=== PATIENT | female | born 1950 | race Caucasian/White ===

== ENCOUNTER 2017-12-11 17:08 | Emergency (ER) | payer MEDICARE, MEDICAID, SELFPAY ==
[2017-12-11 17:10] VITALS: BP 155/86; PULSE 89; RESP 14; TEMP 36.7; O2SAT 98
--- NOTE | 2017-12-11 17:20 | DI.REPORT_ITS ---
SYMPTOM/DIAGNOSIS: LEFT SIDED CHEST PAIN PA AND LATERAL CHEST: 12/11 The heart is normal in size. The lungs are clear. The mediastinal structures and pleura appear intact. CONCLUSION: Normal chest.
--- NOTE | 2017-12-11 17:23 | ED.GENADUL_ITS ---
Disposition Clinical Impression: Contusion of rib on left side Disposition: HOME Condition: Stable Instructions: Rib Contusion (ED) Additional Instructions: follow up with your primary care provider next week if pain continues if pain significantly worsens or you have shortness of breath return to the emergency department Medical Decision Making - Radiology Data Radiology results: report reviewed, image reviewed - Medical Decision Making pt here with likely rib contusion but will obtain xray to eval for fx/ dislocation of the ribs and ptx. Pain started while leaning up against a chair, no pain with exertion, no sob, normal vascular exam, no tearing back pain, no diaphoresis, doubt entities such as acs, pe or dissection at this time no acute findings on xray on my rad or vrad read, only has pain with palpation in left mid axillary line. Suspect contusion, will d/c home - Differential Diagnosis rib contusion vs fx, ptx History of Present Illness - General Chief complaint: Chest/Rib Stated complaint: HIP/FLANK PAIN Time Seen by Provider: 12/11/17 17:09 Source: patient Mode of arrival: ambulatory Limitations: no limitations - History of Present Illness Initial comments: 67 yo female comes in with left sided chest pain. She states earlier this morning she was leaning over a chair on her left chest in the mid axillary line and had mo and felt a pop in the mid left axillary line. Did not fall, has had discomfort since so came here. Denies chest pressure, pain with exertion. Has pain with palpation to the mid left axillary line and no crepitus or palpable deformities Complaint: left sided chest pain Onset/Timin -: hour(s) Location: chest Radiation: non-radiation Severity scale (1-10): 4 Consistency: constant Improves with: none Worsens with: other (palpation to the chest) Associated Symptoms: denies other symptoms Treatments Prior to Arrival: none - Related Data Albuterol Sulfate [Ventolin Hfa] 2 puff IH .Q4HR PRN 02/06/15 Amitriptyline HCl 25 mg PO .QHS 02/06/15 Amlodipine Besylate 10 mg PO DAILY 02/06/15 Atorvastatin Calcium 40 mg PO .QHS 02/06/15 Bupropion HCl [Bupropion Xl] 150 mg PO BID 02/06/15 Cetirizine HCl 10 mg PO DAILY 02/06/15 Citalopram Hydrobromide [Celexa] 40 mg PO DAILY 02/06/15 Doxycycline Hyclate [Vibramycin] 100 mg PO BID #14 tab 02/06/15 Ferrous Gluconate 324 mg PO DAILY 02/06/15 Fluticasone/Salmeterol [Advair Hfa 115-21 Mcg Inhaler] 2 puff IH BID 02/06/15 Furosemide [Lasix] 20 mg PO DAILY 02/06/15 Gabapentin 600 mg PO .QHS 02/06/15 Hydrochlorothiazide 25 mg PO DAILY 02/06/15 Hydroxychloroquine Sulfate 400 mg PO DAILY 02/06/15 Hyoscyamine Sulfate [Levsin] 0.125 mg PO .Q4HRS PRN 02/06/15 Levothyroxine [Levothroid Injection] 100 mcg PO DAILY 02/06/15 Lisinopril 20 mg PO DAILY 02/06/15 Metformin HCl 500 mg PO BID 02/06/15 Montelukast Sodium [Singulair] 10 mg PO DAILY 02/06/15 Omeprazole 40 mg PO DAILY 02/06/15 Oxycodone HCl 5 mg PO .5X/DAY PRN 02/06/15 Prednisone . DIRECTED 02/06/15 Prednisone 40 mg PO DAILY #10 tablet 02/06/15 SUMAtriptan [Imitrex] 100 mg PO PRN 02/06/15 TraZODone [Desyrel] 100 mg PO .QHS 02/06/15 Triamcinolone 0.1% Cream [Kenalog 0.1% Cream] BID 02/06/15 Allergies Allergy/AdvReac Type Severity Reaction Status Date / Time ampicillin AdvReac Mild stuffy/feve Unverified 12/11/17 17:27 r clindamycin AdvReac Mild stuffy/feve Unverified 12/11/17 17:27 r Penicillins AdvReac Mild stuffy/feve Unverified 12/11/17 17:27 r Sulfa (Sulfonamide AdvReac Mild stuffy/feve Unverified 12/11/17 17:27 Antibiotics) r tramadol AdvReac Mild stuffy/feve Unverified 12/11/17 17:[address] contrast Allergy Unknown pt not Uncoded 12/11/17 17:27 sure of allergy Review of Systems Constitutional: denies: fever Respiratory: denies: shortness of breath Cardiovascular: chest pain Gastrointestinal: denies: abdominal pain, nausea, vomiting Musculoskeletal: denies: back pain Skin: denies: rash Comment: All other systems reviewed and negative Past Medical History - Past Medical History Medical history: COPD, hypertension - Social History Smoking status: current everyday smoker Alcohol use: none Drug use: none General Exam - General Limitations: no limitations General appearance: alert, in no apparent distress - Head Head exam: Present: atraumatic - Eye Eye exam: Present: normal apperance - ENT ENT exam: Present: mucous membranes moist - Neck Neck exam: Present: normal inspection - Respiratory Respiratory exam: Present: normal lung sounds bilaterally, chest wall tenderness. Absent: respiratory distress - Cardiovascular Cardiovascular Exam: Present: regular rate, normal rhythm, normal heart sounds - GI/Abdominal GI/Abdominal exam: Present: soft, tenderness - Extremities Exam Extremities exam: Absent: pedal edema - Neurological Exam Neurological exam: Present: alert, oriented X3 - Psychiatric Psychiatric exam: Present: normal affect - Skin Skin exam: Present: warm Course Vital Signs - 24 hr 15/18 17:10 Temperature 98.1 F Pulse 89 Respiratory 14 Rate Blood Pressure 155/86 Pulse Oximetry 98
--- NOTE | 2017-12-11 17:52 | DI.VRAD_ITS ---
EXAM: XR Chest, 2 Views EXAM DATE/TIME: 12/11/2017 5:21 PM CLINICAL HISTORY: 67 years old, female; Pain; Chest pain; Left-sided chest pain TECHNIQUE: XR of the chest, 2 views. COMPARISON: CR - CHEST 2 VIEWS PA,LAT 2015-02-06 13:15 FINDINGS: Lungs: Very minimal residual linear atelectasis or chronic scarring is noted within the lateral right mid thorax. This has diminished since the prior study. No consolidation. Pleural space: Unremarkable. No pleural effusion. No pneumothorax. Heart/Mediastinum: Unremarkable. No cardiomegaly. Bones/joints: The osseous structures appear diffusely osteopenic and unchanged. There is marginal osteophytic spurring noted throughout the thoracic vertebrae. IMPRESSION: No acute pulmonary disease or acute thoracic findings are detected. Dictated and Authenticated by: Alfred Gee MD. Ordering:DESTINEY ABREU MD
== END 2017-12-11 18:17 | disposition home or self-care (01) ==
PROVIDERS: Emergency Provider Emergency Medicine
DX: S20.212A Contusion of left front wall of thorax, initial encounter (principal); X50.9XXA Other and unspecified overexertion or strenuous movements or postures, initial encounter; E11.9 Type 2 diabetes mellitus without complications; Z79.84 Long term (current) use of oral hypoglycemic drugs; I12.9 Hypertensive chronic kidney disease with stage 1 through stage 4 chronic kidney disease, or unspecified chronic kidney disease; N18.9 Chronic kidney disease, unspecified; J44.9 Chronic obstructive pulmonary disease, unspecified; F17.210 Nicotine dependence, cigarettes, uncomplicated
CPT/HCPCS: 71046; 99283 ×2

== ENCOUNTER 2018-02-06 15:52 | Outpatient (REF) | payer MEDICARE, MEDICAID, SELFPAY ==
[2018-02-06 21:58] LABS: Abs Immature Grans 0.01 k/cumm (0.0-0.09); Absolute Basophil Count 0.04 k/cumm (0.0-0.2); Absolute Eosinophil Count 0.26 k/cumm (0.0-0.7); Absolute Lymphocyte Count 1.97 k/cumm (1.2-3.4); Absolute Monocyte Count 0.54 k/cumm (0.11-0.7); Absolute Neutrophil Count 2.42 k/cumm (1.2-6.7); Basophils % 0.8; HCT 35.4 % (36.0-46.0); HGB 12.1 g/dL (12.0-15.5); Immature Grans % 0.2; Lymphocytes % 37.6; Mean Corp. HGB Concentration 34.2 g/dL (32.0-36.0); Mean Corpuscular Hemoglobin 30.2 pg (27.0-33.0); Mean Corpuscular Volume 88.3 fL (80-95); Mean Platelet Volume 10.6 fL (8.0-11.0); Monocytes % 10.3; Neutrophils % 46.1; Platelet Count 284 x1000/uL (130-400); RBC 4.01 m/cumm (4.00-5.20); RBC Distribution Width 12.7 % (11.7-14.6); White Blood Cell Count 5.24 k/cumm (4.4-10.8)
[2018-02-06 22:06] LABS: Iron 58 ug/dL (50-175); Total Iron Binding Capacity 346 ug/dL (250-450); Transferrin Sat 17 % (15-50)
[2018-02-06 22:24] LABS: ALT 25 U/L (12-78); AST 23 U/L (15-37); Albumin 4.1 g/dL (3.4-5.0); Alkaline Phosphatase 85 U/L (46-116); Anion Gap 8.7 mmol/L (3-11); BUN 16 mg/dL (7-18); Bilirubin, Total 0.3 mg/dL (0.2-1.0); CO2 28.3 mmol/L (21.0-32.0); CREATININE 0.89 mg/dL (0.55-1.02); Chloride 99 mmol/L (98-107); Ferritin 86 ng/mL (8-388); Glucose 96 mg/dL (70-100); Potassium 4.3 mmol/L (3.5-5.1); Sodium 136 mmol/L (136-145); TSH (W/Ref FT4) 4.03 uIU/mL (0.358-3.74); Total Protein 7.2 g/dL (6.4-8.2)
[2018-02-06 22:43] LABS: Creatine Kinase 114 U/L (26-192); FREE T4 1.05 ng/dL (0.76-1.46)
[2018-02-10 10:05] LABS: Hepatitis C Ab w Rflx HCV PCR Negative (NEGAT)
== END 2018-02-06 16:12 ==
LOC: NCHCN 15:52
PROVIDERS: PCP Nurse Practitioner; Visit Provider Nurse Practitioner
DX: I10 Essential (primary) hypertension (principal); E11.9 Type 2 diabetes mellitus without complications; M85.80 Other specified disorders of bone density and structure, unspecified site; E03.9 Hypothyroidism, unspecified; E55.9 Vitamin D deficiency, unspecified; Z11.59 Encounter for screening for other viral diseases
CPT/HCPCS: 80053; 82306; 82550; 86803; 82728; 83540; 83550; 84439; 84443; 85025

== ENCOUNTER 2018-03-06 18:49 | Inpatient (IN) | payer MEDICARE, OTHER, MEDICAID, SELFPAY ==
[2018-03-06] VITALS (34 sets, daily range): BP systolic 132–162; BP diastolic 54–88; PULSE 101–118; RESP 4–30; TEMP 36.7–37.7; O2SAT 90–98
--- NOTE | 2018-03-06 19:13 | W.ED.GENAD ---
Discharge Plan Disposition Patient Disposition: [facility] INPATIENT Condition: Serious Discharge Details Chief Complaint: RespSymp Clinical Impression: COPD exacerbation Reason For Visit: COPD EXACERBATION Admit Date/Time: 03/06/18 21:06 Admit Provider: Silvio Pablo Attending Provider: Silvio Pablo Primary Care Provider: Adilene Lester ED Provider: Richard Barnhart Medical Decision Making Patient presenting to the emergency department for chief complaint of cough. Patient states that she has had a cough for the last day which has worsened and had more productive sputum and change in color of sputum color. Patient does state history of COPD. She does state that this is similar in symptoms as previous COPD exacerbations that required hospitalization. patient states that she is new to the area and has not seen her new primary care provider since moving here. Patient does state that she had nasal congestion for a week prior but over the past 24 hours has significantly worsened. Patient is ill in appearance but nontoxic showing some increased effort of breathing. Diffuse rhonchi and expiratory wheezing is heard throughout all lung munoz otherwise negative examination. Review of vital signs shows that patient is tachycardic, tachypneic but not hypotensive and is mildly febrile. Concern for pneumonia, COPD exacerbation, viral illness. Doubt ACS or PE at this time. labs were ordered along with chest x-ray and pending results patient given DuoNeb and Solu-Medrol. After review of labs that show no leukocytosis, and otherwise are interpreted as nondiagnostic, patient was reassessed. Patient continues to have significant work of breathing but on reassessment of lungs it does seem to have slightly more air movement. Patient was given another DuoNeb Review of chest x-ray shows some costophrenic blunting on the right which I am concerned for possible pneumonia given recent URI type symptoms but V rad radiologist states concerning findings for atelectasis, COPD emphysema. Patient reassessed after second DuoNeb and continues to be hypoxic and tachycardic so plan is to admit to hospitalist service and start antibiotics.. Patient started on some 50 of Levaquin. EKG was performed to check patient's QT prolongation and EKG shows sinus tachycardia with rate of 107, normal axis, normal QT, nondiagnostic. Called and spoke with Dr. Davis in regards to admission of the patient and he accepted the patient in admission. Patient was agreeable to this plan. HPI General Mode of arrival: ambulatory. Date/Time Provider Initiated Documentation: 03/06/18 18:49. Limitations to Documentation: no limitations. Information obtained by: patient and RN notes reviewed. History of Present Illness 67 year old F presents to the emergency department with the chief complaint of Cough, described as moderate, with intensity rated at 6. Quality is described as other (tightness), and is localized to the chest. Patient started experiencing this day(s) (1) and it has been constant. No relieving factors improve symptom(s), No exacerbating factors reported . Patient did receive the following treatments prior to arrival, none Related Data Home Medications Medication Instructions Recorded Confirmed albuterol sulfate [Ventolin HFA] 2 puff INHALATION .Q4HR PRN 02/06/15 03/06/18 fluticasone-salmeterol [Advair HFA] 2 puff INHALATION BID 02/06/15 02/06/15 furosemide 20 mg PO DAILY 02/06/15 02/06/15 gabapentin 600 mg PO .QHS 02/06/15 03/06/18 hydroxychloroquine 400 mg PO DAILY 02/06/15 03/06/18 levothyroxine 112 mcg PO DAILY 02/06/15 03/06/18 sumatriptan succinate 100 mg PO PRN PRN 02/06/15 03/06/18 trazodone 100 mg PO .QHS 02/06/15 03/06/18 ropinirole 0.25 mg PO DIRECTED 12/11/17 03/06/18 tiotropium bromide [Spiriva] 18 mcg INHALATION DAILY 12/11/17 03/06/18 amlodipine 10 mg tablet 10 mg PO DAILY 02/13/18 03/06/18 aspirin 81 mg chewable tablet 81 mg PO DAILY 02/13/18 03/06/18 atorvastatin 40 mg tablet 40 mg PO DAILY 02/13/18 03/06/18 blood-glucose meter kit #1 each 02/13/18 budesonide-formoterol HFA 160 2 puff IH BID 02/13/18 03/06/18 mcg-4.5 mcg/actuation aerosol inhaler calcium carbonate 600 mg (1,500 1 tab PO DAILY 02/13/18 03/06/18 mg)-vitamin D3 200 unit tablet clopidogrel 75 mg tablet 75 mg PO DAILY 02/13/18 03/06/18 duloxetine 60 mg capsule,delayed 60 mg PO DAILY 02/13/18 03/06/18 release ferrous gluconate 324 mg (36 mg 324 mg PO DAILY tab 02/13/18 03/06/18 iron) tablet fluticasone 50 mcg/actuation nasal 1 spray JAKOB DAILY 02/13/18 03/06/18 spray,suspension gabapentin 300 mg capsule 300 mg PO BID 02/13/18 03/06/18 lisinopril 5 mg tablet 5 mg PO DAILY 02/13/18 03/06/18 loratadine 10 mg disintegrating 10 mg PO DAILY 02/13/18 03/06/18 tablet meclizine 12.5 mg tablet 12.5 mg PO TID PRN 02/13/18 03/06/18 metformin 500 mg tablet 500 mg PO DAILY tab 02/13/18 03/06/18 montelukast 10 mg tablet 10 mg PO QPM 02/13/18 03/06/18 multivitamin tablet 1 tab PO DAILY 02/13/18 03/06/18 bqptzwmbzssq-bivlepvo-egqrbb tablet 1 tab PO DAILY 02/13/18 03/06/18 nitroglycerin 0.4 mg sublingual 0.4 mg SL ONCE 02/13/18 03/06/18 tablet pantoprazole 40 mg tablet,delayed 40 mg PO DAILY 02/13/18 03/06/18 release Allergies Allergy/AdvReac Type Severity Reaction Status Date / Time ampicillin AdvReac Mild stuffy/feve Unverified 03/06/18 20:30 r clindamycin AdvReac Mild stuffy/feve Unverified 03/06/18 20:30 r Penicillins AdvReac Mild stuffy/feve Unverified 03/06/18 20:30 r Sulfa (Sulfonamide AdvReac Mild stuffy/feve Unverified 03/06/18 20:30 Antibiotics) r tramadol AdvReac Mild stuffy/feve Unverified 03/06/18 20:[address] contrast Allergy Unknown pt not Uncoded 03/06/18 20:30 sure of allergy General Stated Complaint: RespSymp ANASTACIA: 3 Review of Systems Constitutional Reports chills, Reports difficulty sleeping (Due to coughing), Reports fatigue, Reports fever(s) and Reports malaise ENT Denies hoarseness, Reports nasal congestion, Denies sinus pressure and Denies sore throat Cardiovascular Reports chest pain and Reports dyspnea Respiratory Reports change in phlegm color, Reports chest congestion, Reports cough, Denies hemoptysis, Reports excessive phlegm production and Reports dyspnea Gastrointestinal Denies abdominal pain, Denies nausea and Denies vomiting Musculoskeletal Denies joint swelling Integumentary/Breasts Denies rash Endocrine Reports fatigue [facility] Medical History COPD (chronic obstructive pulmonary disease) (Chronic) Diabetes (Chronic) Hypertension (Chronic) Myocardial infarct (Chronic) Social History Smoking/Tobacco Use Status: Current every day tobacco type: cigarettes Surgical History H/O tubal ligation (Resolved) History of cholecystectomy (Resolved) History of total knee arthroplasty (Resolved) Hx of cardiac cath (Resolved) Exam Const General: cooperative, comfortable, no acute distress, not diaphoretic and ill appearing Nutritional Appearance: overweight Orientation: alert, awake and oriented x3 Limitations: altered mental status HENMT Head: normal to inspection Ears: hearing grossly normal bilaterally Mouth: oral mucosae normal Throat: posterior oropharynx normal, tonsils normal and uvula midline Eyes General: appearance normal, both eyes and all related structures Conjunctivae: conjunctivae normal Sclera: sclerae normal Neck Neck: normal visual inspection, full ROM, no lymphadenopathy, meningismus present and no JVD Resp Effort & Inspection: normal respiratory effort, able to speak in complete sentences, no audible wheezes, cough Quality of cough: actively coughing and not labored Auscultation: rhonchi upper bilaterally and lower bilaterally and wheezes expiratory wheezes Cardio Rate: regular rate Rhythm: regular rhythm Heart Sounds: S1 normal and S2 normal Skin General skin exam: no rashes or lesions noted and dry skin Rashes: no rashes Neuro General: alert, awake, oriented x3 and gait normal Course Vital Signs Temperature 37.7 C H 03/06/18 18:51 Pulse 110 H 03/06/18 18:51 Respiratory Rate 30 H 03/06/18 18:51 Blood Pressure 162/75 H 03/06/18 18:51 Pulse Oximetry 95 03/06/18 18:51 Temperature 37.7 C H 03/06/18 18:51 Pulse 110 H 03/06/18 18:51 Respiratory Rate 30 H 11/08/18 18:51 Respiratory Effort 03/06/18 19:01 Respiratory Depth Normal 03/06/18 19:01 Blood Pressure 162/75 H 03/06/18 18:51 Blood Pressure Position Sitting 03/06/18 18:51 Pulse Oximetry 95 03/06/18 18:51 Oxygen Delivery Method Room Air 03/06/18 18:51 Oxygen Flow Rate 0 03/06/18 18:51
--- NOTE | 2018-03-06 19:21 | ED.GENADUL_ITS ---
Discharge Plan Disposition Patient Disposition: [facility] INPATIENT Condition: Serious Discharge Details Chief Complaint: RespSymp Clinical Impression: COPD exacerbation Reason For Visit: COPD EXACERBATION Admit Date/Time: 03/06/18 21:06 Admit Provider: Silvio Pablo Attending Provider: Silvio Pablo Primary Care Provider: Adilene Lester ED Provider: Richard Barnhart Medical Decision Making Patient presenting to the emergency department for chief complaint of cough. Patient states that she has had a cough for the last day which has worsened and had more productive sputum and change in color of sputum color. Patient does state history of COPD. She does state that this is similar in symptoms as previous COPD exacerbations that required hospitalization. patient states that she is new to the area and has not seen her new primary care provider since moving here. Patient does state that she had nasal congestion for a week prior but over the past 24 hours has significantly worsened. Patient is ill in appearance but nontoxic showing some increased effort of breathing. Diffuse rhonchi and expiratory wheezing is heard throughout all lung munoz otherwise negative examination. Review of vital signs shows that patient is tachycardic, tachypneic but not hypotensive and is mildly febrile. Concern for pneumonia, COPD exacerbation, viral illness. Doubt ACS or PE at this time. labs were ordered along with chest x-ray and pending results patient given DuoNeb and Solu -Medrol. After review of labs that show no leukocytosis, and otherwise are interpreted as nondiagnostic, patient was reassessed. Patient continues to have significant work of breathing but on reassessment of lungs it does seem to have slightly more air movement. Patient was given another DuoNeb Review of chest x-ray shows some costophrenic blunting on the right which I am concerned for possible pneumonia given recent URI type symptoms but V rad radiologist states concerning findings for atelectasis, COPD emphysema. Patient reassessed after second DuoNeb and continues to be hypoxic and tachycardic so plan is to admit to hospitalist service and start antibiotics.. Patient started on some 50 of Levaquin. EKG was performed to check patient's QT prolongation and EKG shows sinus tachycardia with rate of 107, normal axis, normal QT, nondiagnostic. Called and spoke with Dr. Davis in regards to admission of the patient and he accepted the patient in admission. Patient was agreeable to this plan. HPI General Mode of arrival: ambulatory . Date/Time Provider Initiated Documentation: 03/06/18 18:49 . Limitations to Documentation: no limitations . Information obtained by: patient and RN notes reviewed . History of Present Illness 67 year old F presents to the emergency department with the chief complaint of Cough, described as moderate, with intensity rated at 6. Quality is described as other (tightness), and is localized to the chest. Patient started experiencing this day(s) (1) and it has been constant. No relieving factors improve symptom(s), No exacerbating factors reported . Patient did receive the following treatments prior to arrival, none Related Data Home Medications Medication Instructions Recorded Confirmed albuterol sulfate [Ventolin HFA] 2 puff INHALATION .Q4HR PRN 02/06/15 03/06/18 fluticasone-salmeterol [Advair HFA] 2 puff INHALATION BID 02/06/15 02/06/15 furosemide 20 mg PO DAILY 02/06/15 02/06/15 gabapentin 600 mg PO .QHS 02/06/15 03/06/18 hydroxychloroquine 400 mg PO DAILY 02/06/15 03/06/18 levothyroxine 112 mcg PO DAILY 02/06/15 03/06/18 sumatriptan succinate 100 mg PO PRN PRN 02/06/15 03/06/18 trazodone 100 mg PO .QHS 02/06/15 03/06/18 ropinirole 0.25 mg PO DIRECTED 12/11/17 03/06/18 tiotropium bromide [Spiriva] 18 mcg INHALATION DAILY 12/11/17 03/06/18 amlodipine 10 mg tablet 10 mg PO DAILY 02/13/18 03/06/18 aspirin 81 mg chewable tablet 81 mg PO DAILY 02/13/18 03/06/18 atorvastatin 40 mg tablet 40 mg PO DAILY 02/13/18 03/06/18 blood-glucose meter kit #1 each 02/13/18 budesonide-formoterol HFA 160 2 puff IH BID 02/13/18 03/06/18 mcg-4.5 mcg/actuation aerosol inhaler calcium carbonate 600 mg (1,500 1 tab PO DAILY 02/13/18 03/06/18 mg)-vitamin D3 200 unit tablet clopidogrel 75 mg tablet 75 mg PO DAILY 02/13/18 03/06/18 duloxetine 60 mg capsule,delayed 60 mg PO DAILY 02/13/18 03/06/18 release ferrous gluconate 324 mg (36 mg 324 mg PO DAILY tab 02/13/18 03/06/18 iron) tablet fluticasone 50 mcg/actuation nasal 1 spray JAKOB DAILY 02/13/18 03/06/18 spray,suspension gabapentin 300 mg capsule 300 mg PO BID 02/13/18 03/06/18 lisinopril 5 mg tablet 5 mg PO DAILY 02/13/18 03/06/18 loratadine 10 mg disintegrating 10 mg PO DAILY 02/13/18 03/06/18 tablet meclizine 12.5 mg tablet 12.5 mg PO TID PRN 02/13/18 03/06/18 metformin 500 mg tablet 500 mg PO DAILY tab 02/13/18 03/06/18 montelukast 10 mg tablet 10 mg PO QPM 02/13/18 03/06/18 multivitamin tablet 1 tab PO DAILY 02/13/18 03/06/18 vfwgtitfhgmv-mrijeebm-utkuvz tablet 1 tab PO DAILY 02/13/18 03/06/18 nitroglycerin 0.4 mg sublingual 0.4 mg SL ONCE 02/13/18 03/06/18 tablet pantoprazole 40 mg tablet,delayed 40 mg PO DAILY 02/13/18 03/06/18 release Allergies Allergy/AdvReac Type Severity Reaction Status Date / Time ampicillin AdvReac Mild stuffy/feve Unverified 03/06/18 20:30 r clindamycin AdvReac Mild stuffy/feve Unverified 03/06/18 20:30 r Penicillins AdvReac Mild stuffy/feve Unverified 03/06/18 20:30 r Sulfa (Sulfonamide AdvReac Mild stuffy/feve Unverified 03/06/18 20:30 Antibiotics) r tramadol AdvReac Mild stuffy/feve Unverified 03/06/18 20:[address] contrast Allergy Unknown pt not Uncoded 03/06/18 20:30 sure of allergy General Stated Complaint: RespSymp ANASTACIA: 3 Review of Systems Constitutional Reports chills, Reports difficulty sleeping (Due to coughing), Reports fatigue, Reports fever(s) and Reports malaise ENT Denies hoarseness, Reports nasal congestion, Denies sinus pressure and Denies sore throat Cardiovascular Reports chest pain and Reports dyspnea Respiratory Reports change in phlegm color, Reports chest congestion, Reports cough, Denies hemoptysis, Reports excessive phlegm production and Reports dyspnea Gastrointestinal Denies abdominal pain, Denies nausea and Denies vomiting Musculoskeletal Denies joint swelling Integumentary/Breasts Denies rash Endocrine Reports fatigue [facility] Medical History COPD (chronic obstructive pulmonary disease) (Chronic) Diabetes (Chronic) Hypertension (Chronic) Myocardial infarct (Chronic) Social History Smoking/Tobacco Use Status: Current every day tobacco type: cigarettes Surgical History H/O tubal ligation (Resolved) History of cholecystectomy (Resolved) History of total knee arthroplasty (Resolved) Hx of cardiac cath (Resolved) Exam Const General: cooperative, comfortable, no acute distress, not diaphoretic and ill appearing Nutritional Appearance: overweight Orientation: alert, awake and oriented x3 Limitations: altered mental status HENMT Head: normal to inspection Ears: hearing grossly normal bilaterally Mouth: oral mucosae normal Throat: posterior oropharynx normal, tonsils normal and uvula midline Eyes General: appearance normal, both eyes and all related structures Conjunctivae: conjunctivae normal Sclera: sclerae normal Neck Neck: normal visual inspection, full ROM, no lymphadenopathy, meningismus present and no JVD Resp Effort & Inspection: normal respiratory effort, able to speak in complete sentences, no audible wheezes, cough Quality of cough: actively coughing and not labored Auscultation: rhonchi upper bilaterally and lower bilaterally and wheezes expiratory wheezes Cardio Rate: regular rate Rhythm: regular rhythm Heart Sounds: S1 normal and S2 normal Skin General skin exam: no rashes or lesions noted and dry skin Rashes: no rashes Neuro General: alert, awake, oriented x3 and gait normal Course Vital Signs Temperature 37.7 C H 03/06/18 18:51 Pulse 110 H 03/06/18 18:51 Respiratory Rate 30 H 03/06/18 18:51 Blood Pressure 162/75 H 03/06/18 18:51 Pulse Oximetry 95 03/06/18 18:51 Temperature 37.7 C H 03/06/18 18:51 Pulse 110 H 03/06/18 18:51 Respiratory Rate 30 H 11/08/18 18:51 Respiratory Effort 03/06/18 19:01 Respiratory Depth Normal 03/06/18 19:01 Blood Pressure 162/75 H 03/06/18 18:51 Blood Pressure Position Sitting 03/06/18 18:51 Pulse Oximetry 95 03/06/18 18:51 Oxygen Delivery Method Room Air 03/06/18 18:51 Oxygen Flow Rate 0 03/06/18 18:51
[2018-03-06] MEDS: methylPREDNISolone SUCC 125 MG VIAL IVP (19:34)
[2018-03-06] MEDS: Normal Saline 500 ML IV (19:34)
[2018-03-06] MEDS: Albuterol/Ipratropium 3 ML UPD VIAL UPD ×2 (19:34→20:28)
[2018-03-06 19:40] LABS: Lactate-non-spesis 1.4 mmol/L (0.6-1.4)
[2018-03-06 19:43] LABS: Abs Immature Grans 0.02 k/cumm (0.0-0.09); Absolute Basophil Count 0.03 k/cumm (0.0-0.2); Absolute Eosinophil Count 0.07 k/cumm (0.0-0.7); Absolute Lymphocyte Count 0.75 k/cumm (1.2-3.4); Absolute Monocyte Count 0.89 k/cumm (0.11-0.7); Absolute Neutrophil Count 6.82 k/cumm (1.2-6.7); Basophils % 0.3; Eosinophils % 0.8; HCT 29.9 % (36.0-46.0); HGB 10.6 g/dL (12.0-15.5); Immature Grans % 0.2; Lymphocytes % 8.7; Mean Corp. HGB Concentration 35.5 g/dL (32.0-36.0); Mean Corpuscular Hemoglobin 30.8 pg (27.0-33.0); Mean Corpuscular Volume 86.9 fL (80-95); Mean Platelet Volume 9.4 fL (8.0-11.0); Monocytes % 10.4; Neutrophils % 79.6; Platelet Count 241 x1000/uL (130-400); RBC 3.44 m/cumm (4.00-5.20); RBC Distribution Width 12.2 % (11.7-14.6); White Blood Cell Count 8.58 k/cumm (4.4-10.8)
[2018-03-06 20:02] LABS: ALT 25 U/L (12-78); AST 21 U/L (15-37); Albumin 3.8 g/dL (3.4-5.0); Alkaline Phosphatase 77 U/L (46-116); Anion Gap 10.9 mmol/L (3-11); BUN 11 mg/dL (7-18); Bilirubin, Total 0.4 mg/dL (0.2-1.0); CO2 25.1 mmol/L (21.0-32.0); CREATININE 0.99 mg/dL (0.55-1.02); Calcium 8.8 mg/dL (8.5-10.1); Chloride 90 mmol/L (98-107); Estimated GFR 55.95 (mL/min/1.73m2); Glucose 118 mg/dL (70-100); Potassium 4.5 mmol/L (3.5-5.1); Sodium 126 mmol/L (136-145); Total Protein 7.2 g/dL (6.4-8.2)
--- NOTE | 2018-03-06 20:05 | DI.RAD_ITS ---
SYMPTOMS/DIAGNOSIS: COUGH CHEST X-RAY, FRONTAL AND LATERAL VIEWS: Comparison 02/06/15 and 12/11/17. The heart size and pulmonary vasculature are within normal limits. There is again seen scarring in the right mid lung. On the lateral view, there does appear to be an infiltrate in the right middle lobe. No effusions or pneumothoraces are identified. The bones are intact. Degenerative changes are seen in the spine. There does appear to be underlying COPD. IMPRESSION: Question of a right middle lobe infiltrate. This may represent atelectasis or pneumonia.
--- NOTE | 2018-03-06 20:20 | DI.VRAD_ITS ---
EXAM: XR Chest, 2 Views EXAM DATE/TIME: 03/06/2018 7:13 PM CLINICAL HISTORY: 67 years old, female; Signs and symptoms; Cough TECHNIQUE: XR of the chest, 2 views. COMPARISON: CR CHEST 2 VIEWS PA,LAT 12/11/2017 5:28 PM FINDINGS: Lungs: The pulmonary vasculature is within normal limits. There is linear scarring/atelectasis in the right midlung and left lung base. No focal consolidation. Increased diffuse reticulation in keeping with underlying COPD/emphysema. Pleural space: No pneumothorax. No pleural effusion. Heart/Mediastinum: The cardiomediastinal silhouette is within normal limits. Bones/joints: Mild multilevel degenerative changes of the spine. IMPRESSION: No acute cardiopulmonary findings. Bilateral linear scarring/atelectasis. COPD/emphysema. Dictated and Authenticated by: Jessy Viera MD. Ordering:SILVINA DOWELL MD
[2018-03-06] MEDS: LEVOFLOXACIN 750 MG/150 ML BAG 150 MG IVPB (21:15)
[2018-03-06 21:39] LABS: BE -0.5 mmol/L (-3-3); HCO3 23 mmol/L (22-28); pCO2 33 mmHg (34-47); pH 7.46 (7.35-7.45); pO2 57 mmHg (83-108); sO2 92 % (94-98); tCO2 22 mmol/L (22-29)
--- NOTE | 2018-03-06 21:39 | HPE_ITS ---
Date of service: 03/06/18 Time of Service: 21:39 Assessment and Plan (1) COPD exacerbation: Current visit: No Status: Acute continue scheduled DuoNeb treatments. Continuous treatment was given in the ER after she already had two individual aerosol treatment but she could not tolerate the continuous treatment d/t shakiness and palpitations. She will continue to receive oral andtibiotics (Levaquin) for acute bronchitis and she will be started on oral prednisone in the a.m. (she had solumedrol 125 mg IVP tonight which should be adequate until the a.m.). At present she does not appear to be in acute respiratory distress although she initially presented this way. She will be admitted to ICU as med/surg overflow on telemetry. If she worsens during the night she will be tried on BIPAP. (2) Diabetes: Current visit: No Status: Chronic monitor glucose AC/HS and use sliding scale along w/ meal time carb coverage. I expect her glucose levels to rise d/t solumedrol. check A1c to assess her more recent control. No contraindication to continue to use her metformin i.e. renal function is normal and no signs/symptom of CHF and no use of iv contrast. (3) Hypertension: Current visit: No Status: Chronic continue her home meds of norvasc and lisinopril (4) Coronary artery disease: Current visit: No Status: Chronic continue her aspirin, atorvastatin and plavix (5) Anemia: Current visit: No Status: Chronic I have witheld any enoxaparin for dvt prophylaxis until we are certain that there has been no acute bleeding. I have ordered stool for occult blood and serum iron studies for the a.m. I have also ordered repeat CBC for the morning. Apparently she has been anemic before and has been on iron supplements however her last hemogram showed a normal hemoglobin of 12.1 gm on 02/06/2018. She has been maintained on a PPI (6) Depression: Current visit: No Status: Chronic continue her duloxetine as she states that her depression has been under much improved control since she was switched to this (7) Rheumatoid arthritis: Current visit: No Status: Chronic continue her hydroxychloroquine. she has had no recent flareups (8) Hypothyroidism (acquired): Current visit: No Status: Chronic check her TSH with her a.m. labs. Also her levothyroxine formulation is incorrect in her med list as it lists her as taking injectable levothyroxine. I will ask nursing to get a corrected copy of her meds in the a.m. I do not feel that ER correctly reconciled her meds as it lists Advair when she tells me she is on Symbicort and it lists injectable levothyroxine. Hopefully we can get a corrected list in the a.m. History of Present Illness Chief Complaint: short of breath Narrative: 67-year-old female with a past medical history of COPD, coronary artery disease, diabetes mellitus, chronic anemia presents emergency department with 2-day history of worsening dyspnea. Initially dyspnea was with exertion but now is having dyspnea at rest. This is been associated with a cough and low-grade fever. She has had increased sputum production over the last day that appears to be clear to white according to the patient. Upon arrrival to the ER the patient was tachypneic (30) and tachycardic (110) and low grade temp 37.7 and hypoxemic (SpO2 90% on RA, PaO2 57). Patient was evaluated in the emergency room by Richard Barnhart NP who performed routine labs as well as chest x-ray. Chest x-ray was formally read as showing no acute cardiopulmonary findings but bilateral linear scarring/ atelectasis as well as emphysematous changes. Labs were remarkable for anemia ( Hb 10.6 gm, Hct 29% w/ normal indices, normal RDW) but no leukocytosis. ABG was significant for hypoxemia (PaO2 57) but no hypercarbia. D-dimer was normal at 355. CMP was remarkable for hyponatremia 126 and hypochloridemia 90 but normal AG and normal BUN and creatinine (11 and 0.99). Treatment included multiple DuoNeb aerosol treatments, solulmedrol 125 mg IVP and Levaquin 750 mg IVP. Patient is now admitted for COPD exacerbation. She recently moved to [place], [place] from [place], [place] to live w/ her sister and she currently has no PCP in the area. Review of Systems Constitutional Denies chills and Reports fever(s) Eyes Reports system reviewed and no additional complaints, except as docu ENT Reports system reviewed and no additional complaints, except as docu Cardiovascular Denies chest pain, Denies syncope, Denies pedal edema, Denies irregular heart rhythm, Denies palpitations, Reports dyspnea, Reports dyspnea on exertion and Reports orthopnea Respiratory Denies change in phlegm color, Reports chest congestion, Reports cough, Denies hemoptysis, Reports excessive phlegm production, Reports dyspnea, Reports dyspnea on exertion and Reports wheezing Gastrointestinal Denies melena, Denies hematochezia, Denies change in bowel habits, Denies diarrhea and Denies vomiting Genitourinary Reports system reviewed and no additional complaints, except as docu Musculoskeletal Reports system reviewed and no additional complaints, except as docu Integumentary/Breasts Reports system reviewed and no additional complaints, except as docu Neurologic Reports system reviewed and no additional complaints, except as docu and Denies syncope Psychiatric Reports system reviewed and no additional complaints, except as docu Endocrine Reports system reviewed and no additional complaints, except as docu and Denies palpitations Hematologic/Lymphatic Reports system reviewed and no additional complaints, except as docu Allergic/Immunologic Reports system reviewed and no additional complaints, except as docu and Reports wheezing PFSH Medical History Depression (Chronic) Rheumatoid arthritis (Chronic) Hypothyroidism (acquired) (Chronic) Coronary artery disease (Chronic) COPD (chronic obstructive pulmonary disease) (Chronic) Hypertension (Chronic) Diabetes (Chronic) Myocardial infarct (Chronic) Social History household members: family housing: other details: lives w/ her sister in [place], [place] number of children: 2 Smoking/Tobacco Use Status: Current every day tobacco type: cigarettes alcohol intake: current alcohol intake frequency: holidays/special occasions only Alcohol type: wine substance use type: does not use Surgical History H/O tubal ligation (Resolved) History of cholecystectomy (Resolved) History of total knee arthroplasty (Resolved) Hx of cardiac cath (Resolved) S/P appendectomy (Resolved) Meds Home Medications Medication Instructions Recorded Confirmed Type albuterol sulfate [Ventolin HFA] 2 puff INHALATION .Q4HR PRN 02/06/15 03/12/18 History gabapentin 600 mg PO .QHS 02/06/15 03/12/18 History hydroxychloroquine 400 mg PO DAILY 02/06/15 03/12/18 History levothyroxine 112 mcg PO DAILY 02/06/15 03/06/18 History sumatriptan succinate 100 mg PO PRN PRN 02/06/15 03/12/18 History trazodone 100 mg PO .QHS 02/06/15 03/12/18 History ropinirole 0.25 mg PO DIRECTED 12/11/17 03/12/18 History tiotropium bromide [Spiriva with 18 mcg INHALATION DAILY 12/11/17 03/12/18 History HandiHaler] amlodipine 10 mg tablet 10 mg PO DAILY 02/13/18 03/12/18 History aspirin 81 mg chewable tablet 81 mg PO DAILY 02/13/18 03/12/18 History blood-glucose meter kit #1 each 02/13/18 History budesonide-formoterol HFA 160 2 puff IH BID 02/13/18 03/12/18 History mcg-4.5 mcg/actuation aerosol inhaler calcium carbonate 600 mg (1,500 1 tab PO DAILY 02/13/18 03/12/18 History mg)-vitamin D3 200 unit tablet clopidogrel 75 mg tablet 75 mg PO DAILY 02/13/18 03/12/18 History duloxetine 60 mg capsule,delayed 60 mg PO DAILY 02/13/18 03/06/18 History release ferrous gluconate 324 mg (36 mg 324 mg PO DAILY tab 02/13/18 03/12/18 History iron) tablet fluticasone 50 mcg/actuation nasal 1 spray JAKOB DAILY 02/13/18 03/12/18 History spray,suspension gabapentin 300 mg capsule 300 mg PO BID 02/13/18 03/12/18 History lisinopril 5 mg tablet 5 mg PO DAILY 02/13/18 03/12/18 History loratadine 10 mg disintegrating 10 mg PO DAILY 02/13/18 03/12/18 History tablet meclizine 12.5 mg tablet 12.5 mg PO TID PRN 02/13/18 03/12/18 History metformin 500 mg tablet 500 mg PO DAILY tab 02/13/18 03/12/18 History montelukast 10 mg tablet 10 mg PO QPM 02/13/18 03/12/18 History multivitamin tablet 1 tab PO DAILY 02/13/18 03/12/18 History jwywgdxxpycv-xbiqtuqt-xzgtut tablet 1 tab PO DAILY 02/13/18 03/12/18 History nitroglycerin 0.4 mg sublingual 0.4 mg SL ONCE 02/13/18 03/12/18 History tablet pantoprazole 40 mg tablet,delayed 40 mg PO DAILY 02/13/18 03/12/18 History release benzonatate [Tessalon Perles] 100 mg PO TID PRN #30 cap 03/07/18 03/12/18 Rx guaifenesin [Mucinex] 600 mg PO Q12H #10 tab 03/07/18 03/12/18 Rx ipratropium-albuterol 3 ml UPD Q6H #100 vial 03/07/18 03/12/18 Rx levofloxacin 500 mg PO DAILY #5 tab 03/07/18 03/12/18 Rx prednisone See Label Instructions .ROUTE 03/07/18 03/12/18 Rx .COMPLEX #12 tab Allergies Allergy/AdvReac Type Severity Reaction Status Date / Time ampicillin AdvReac Mild stuffy/feve Unverified 03/12/18 21:24 r clindamycin AdvReac Mild stuffy/feve Unverified 03/12/18 21:24 r Penicillins AdvReac Mild stuffy/feve Unverified 03/12/18 21:24 r Sulfa (Sulfonamide AdvReac Mild stuffy/feve Unverified 03/12/18 21:24 Antibiotics) r tramadol AdvReac Mild stuffy/feve Unverified 03/12/18 21:[address] contrast Allergy Unknown pt not Uncoded 03/12/18 21:24 sure of allergy Exam Const General: cooperative, well developed, anxious and ill appearing acutely Nutritional Appearance: overweight Orientation: alert, awake and oriented x3 Neck Neck: normal visual inspection, full ROM, no lymphadenopathy and trachea midline Thyroid: thyroid normal Carotids: normal carotid upstroke Lymphatic: no lymphadenopathy noted Resp Effort & Inspection: audible wheezes (initially she had audible wheezing but after repeated aerosol treatment her breathing has improved) and cough Quality of cough: actively coughing Auscultation: crackles bilaterally, rhonchi upper bilaterally and wheezes expiratory wheezes, inspiratory wheezes and scattered wheezes Cardio Jugular venous pressure: no JVD Palpation: normal PMI Rate: regular rate Rhythm: regular rhythm Heart Sounds: S1 normal, S2 normal, normal, physiologic split S2, no gallops, no murmurs and no rubs Bruits: no carotid bruits Pulses: normal peripheral pulses GI Inspection: normal to inspection Palpation: soft and nontender Percussion: normal to percussion Auscultation: normal bowel sounds Rectal Exam - female: deferred Skin General skin exam: no rashes or lesions noted and turgor normal Lesions: no lesions Rashes: no rashes Trauma: no lacerations or abrasions Neuro General: alert, awake, oriented x3, moves all extremities, normal light touch, pain and propioception and no focal motor deficits Cognition: normal cognition Speech: speech normal Motor: muscle tone normal throughout, strength 5/5 throughout and no movement abnormalities noted Sensory Exam: no sensory deficits noted Extrem General: normal to inspection, full ROM, normal capillary refill, no joint enlargement, no clubbing, cyanosis or edema, no pedal edema and no calf tenderness Psych Appearance: grossly normal Mental Status: mental status grossly normal Speech and Movement: speech and movement normal Mood: congruent mood Affect: normal affect Attitude: cooperative Thought Process: normal Thought Content: normal Insight: insight good Judgment: judgment good Results Imaging Chest x-ray: report reviewed (IMPRESSION: No acute cardiopulmonary findings. Bilateral linear scarring/atelectasis. COPD/emphysema. Dictated and Authenticated by: Jessy Viera MD) and image reviewed EKG: image reviewed ( sinus tachycardia at 107 bpm, no ischemic ST-T changes, inferior q waves possible old inferior infarct) Labs : 03/07/18 06:20 03/07/18 06:20 Laboratory Results - last 24 hr 03/06/18 03/06/18 03/06/18 19:15 19:15 19:15 WBC 8.58 RBC 3.44 L Hgb 10.6 L Hct 29.9 L MCV 86.9 MCH 30.8 MCHC 35.5 RDW 12.2 Plt Count 241 MPV 9.4 Immature Gran % 0.2 Neutrophils % 79.6 Lymphocytes % 8.7 Monocytes % 10.4 Eosinophils % 0.8 Basophils % 0.3 Absolute Neutrophils 6.82 H Absolute Lymphocytes 0.75 L Absolute Monocytes 0.89 H Absolute Eosinophils 0.07 Absolute Basophils 0.03 Sodium 126 L Potassium 4.5 Chloride 90 L Carbon Dioxide 25.1 Anion Gap 10.9 BUN 11 Creatinine 0.99 Estimated GFR/1.73 m2 55.95 Glucose 118 H Lactate 1.4 Calcium 8.8 Total Bilirubin 0.4 AST 21 ALT 25 Alkaline Phosphatase 77 Total Protein 7.2 Albumin 3.8 Last Vital Signs Temp 37.7 C H 03/06/18 18:51 Pulse 110 H 03/06/18 18:51 Resp 30 H 03/06/18 18:51 BP 162/75 H 03/06/18 18:51 Pulse Ox 95 03/06/18 18:51
[2018-03-06 21:42] LABS: Site Right Radial
[2018-03-06 22:20] LABS: D-Dimer 355 ng/mlFEU (<500)
[2018-03-06 23:06] LABS: Magnesium 1.5 mg/dL (1.8-2.4)
[2018-03-06 23:07] LABS: Troponin I < 0.02 ng/mL (0.00-0.06)
[2018-03-07] VITALS (70 sets, daily range): BP systolic 107–147; BP diastolic 56–71; PULSE 78–124; RESP 5–33; TEMP 35.6–36.7; O2SAT 92–98
[2018-03-07] MEDS: Albuterol/Ipratropium 3 ML UPD VIAL UPD ×3 (01:04→11:54)
[2018-03-07] MEDS: oxyCODONE 5 mg/Acetaminophen 325 mg TAB 1 TAB PO (01:06)
[2018-03-07] MEDS: Insulin Aspart 300 UNITS/3 ML PEN SC ×5 (01:08→12:33)
[2018-03-07] MEDS: SUMAtriptan 50 MG TAB 100 MG PO (03:46)
[2018-03-07] MEDS: Gabapentin 600 MG TAB PO (03:46)
[2018-03-07 07:13] LABS: Abs Immature Grans 0.02 k/cumm (0.0-0.09); Absolute Lymphocyte Count 0.37 k/cumm (1.2-3.4); Absolute Monocyte Count 0.33 k/cumm (0.11-0.7); Absolute Neutrophil Count 8.36 k/cumm (1.2-6.7); HCT 28.1 % (36.0-46.0); HGB 9.5 g/dL (12.0-15.5); Immature Grans % 0.2; Lymphocytes % 4.1; Mean Corp. HGB Concentration 33.8 g/dL (32.0-36.0); Mean Corpuscular Hemoglobin 29.3 pg (27.0-33.0); Mean Corpuscular Volume 86.7 fL (80-95); Monocytes % 3.6; Neutrophils % 92.1; Platelet Count 234 x1000/uL (130-400); RBC 3.24 m/cumm (4.00-5.20); RBC Distribution Width 12.1 % (11.7-14.6); Reticulocyte 1.6 % (0.5-2.4); White Blood Cell Count 9.08 k/cumm (4.4-10.8)
[2018-03-07 07:43] LABS: Anion Gap 12.2 mmol/L (3-11); BUN 16 mg/dL (7-18); CO2 22.8 mmol/L (21.0-32.0); CREATININE 1.14 mg/dL (0.55-1.02); Calcium 8.5 mg/dL (8.5-10.1); Chloride 89 mmol/L (98-107); Estimated GFR 47.54 (mL/min/1.73m2); Ferritin 135 ng/mL (8-388); Glucose 182 mg/dL (70-100); Potassium 4.7 mmol/L (3.5-5.1); TSH (W/Ref FT4) 0.91 uIU/mL (0.358-3.74)
[2018-03-07 07:47] LABS: Sodium 124 mmol/L (136-145)
[2018-03-07 07:58] LABS: LDH 160 U/L (81-234)
[2018-03-07 08:01] LABS: Iron 25 ug/dL (50-175); Magnesium 1.6 mg/dL (1.8-2.4); Total Iron Binding Capacity 299 ug/dL (250-450); Transferrin Sat 8 % (15-50); Troponin I < 0.02 ng/mL (0.00-0.06)
[2018-03-07] MEDS: Lisinopril 5 MG TAB PO (08:40)
[2018-03-07] MEDS: Pantoprazole 40 MG TABCR PO (08:40)
[2018-03-07] MEDS: metFORMIN 500 MG TAB PO (08:40)
[2018-03-07] MEDS: Ferrous Gluconate 324 MG TAB PO (08:40)
[2018-03-07] MEDS: amLODIPine 10 MG TAB PO (08:41)
[2018-03-07] MEDS: Hydroxychloroquine 200 MG TAB 400 MG PO (08:41)
[2018-03-07] MEDS: Multivitamin TAB 1 TAB PO (08:41)
[2018-03-07] MEDS: Gabapentin 300 MG CAP PO (08:41)
[2018-03-07] MEDS: DULoxetine 30 MG CAP 60 MG PO (08:41)
[2018-03-07] MEDS: Clopidogrel 75 MG TAB PO (08:41)
[2018-03-07] MEDS: predniSONE 20 MG TAB 60 MG PO (08:41)
[2018-03-07] MEDS: Calcium 600mg/Vit D 200U TAB 1 TAB PO (08:42)
[2018-03-07] MEDS: Atorvastatin 40 MG TAB PO (08:42)
[2018-03-07] MEDS: Aspirin 81 MG CHEW PO (08:42)
--- NOTE | 2018-03-07 08:53 | PDOC.CMIN ---
- If Service Date Differs Date of service: 03/07/18 Time of Service: 08:53 Care Management Initial Assess REASON FOR HOSPITALIZATION:: COPD Exacerbation. PAST MEDICAL HISTORY/PAST SURGICAL HISTORY:: COPD, coronary artery disease, depression, diabetes, hypertension, [place], hypothyroidism, RA. Surgical hx: Tubal ligation, choecystectomy, total TKA, cardiac cath, appendectomy. PREVIOUS FUNCTIONAL STATUS/SOCIAL/FAMILY SUPPORTS:: Deborah resides in [place] with her sister, Imani, Imani's daughter and her fiance. Deborah has three adult children; two boys who reside in [place] and a daughter, in [place] who she has been estranged from for two years. Imani has been and x2 and had a 20 year relationship with a man who in May 16. At that time she moved from [place], to her son's in [place], and then her sister's in [place]. Deborah is independent with her ADLs and relies on her sister and niece for transportation. She has a walker and cane at home for use ambulating, but reports that she doesn't use the walker because it makes me feel like an old lady. CURRENT FUNCTIONAL STATUS:: Deborah is lying in bed in the ICU when CM visited this morning. She is engaged in conversation, makes good eye contact, and is talkative. Deborah reports that she is feeling much improved from yesterday and is hoping to see the MD shortly and be discharged home. Deborah's sodium is 124 and she is having magnesium replaced at 25ml/hr at the present time. She complains of a cough though no other symptoms. CM asked the nurse about cough medications and nurse will review orders with MD. Deborah has not required supplemental O2 since her admission and has O2 sats in the upper 90's. ADVANCE DIRECTIVES:: None on file at [facility]. Has patient been provided with information about the portal?: Yes Did the patient sign up for the portal?: No CODE STATUS:: Full Code INSURANCE COVERAGE / FINANCIAL ISSUES:: [employer], Medicaid, Medicare. PRIMARY CARE PHYSICIAN:: Adilene Lester. POTENTIAL DISCHARGE NEEDS:: Follow up appointment with PCP. PATIENT/FAMILY EDUCATION NEEDS:: Discharge education, any limitations, and follow up plan of care. Ask Me Three discussion. ANTICIPATED BARRIERS TO DISCHARGE:: No anticipated barriers to discharge. PLAN:: Deborah will discharge home when medically ready per MD. Anticipate patient will discharge with no services and follow up with her PCP. CM will continue offer support to patient and care team regarding discharge planning and disposition.
[2018-03-07] MEDS: Budesonide/Formoterol 160/4.5 6 GM 60 PUFF INH IH (08:55)
--- NOTE | 2018-03-07 08:59 | INITIAL_ITS ---
- If Service Date Differs Date of service: 03/07/18 Time of Service: 08:53 Care Management Initial Assess REASON FOR HOSPITALIZATION:: COPD Exacerbation. PAST MEDICAL HISTORY/PAST SURGICAL HISTORY:: COPD, coronary artery disease, depression, diabetes, hypertension, [place], hypothyroidism, RA. Surgical hx: Tubal ligation, choecystectomy, total TKA, cardiac cath, appendectomy. PREVIOUS FUNCTIONAL STATUS/SOCIAL/FAMILY SUPPORTS:: Deborah resides in [place] with her sister, Imani, Imani's daughter and her fiance. Deborah has three adult children; two boys who reside in [place] and a daughter, in [place] who she has been estranged from for two years. Imani has been and x2 and had a 20 year relationship with a man who in May 16. At that time she moved from [place], to her son's in [place], and then her sister's in [place]. Deborah is independent with her ADLs and relies on her sister and niece for transportation. She has a walker and cane at home for use ambulating, but reports that she doesn't use the walker because it makes me feel like an old lady. CURRENT FUNCTIONAL STATUS:: Deborah is lying in bed in the ICU when CM visited this morning. She is engaged in conversation, makes good eye contact, and is talkative. Deborah reports that she is feeling much improved from yesterday and is hoping to see the MD shortly and be discharged home. Deborah's sodium is 124 and she is having magnesium replaced at 25ml/hr at the present time. She complains of a cough though no other symptoms. CM asked the nurse about cough medications and nurse will review orders with MD. Deborha has not required supplemental O2 since her admission and has O2 sats in the upper 90's. ADVANCE DIRECTIVES:: None on file at [facility]. Has patient been provided with information about the portal?: Yes Did the patient sign up for the portal?: No CODE STATUS:: Full Code INSURANCE COVERAGE / FINANCIAL ISSUES:: [employer], Medicaid, Medicare. PRIMARY CARE PHYSICIAN:: Adilene Lester. POTENTIAL DISCHARGE NEEDS:: Follow up appointment with PCP. PATIENT/FAMILY EDUCATION NEEDS:: Discharge education, any limitations, and follow up plan of care. Ask Me Three discussion. ANTICIPATED BARRIERS TO DISCHARGE:: No anticipated barriers to discharge. PLAN:: Deborah will discharge home when medically ready per MD. Anticipate patient will discharge with no services and follow up with her PCP. CM will continue offer support to patient and care team regarding discharge planning and disposition.
[2018-03-07] MEDS: Normal Saline Flush 10 ML SYR (10:16)
[2018-03-07] MEDS: MAGNESIUM SULFATE 2 GM/50 ML BAG IVPB (10:16)
[2018-03-07] MEDS: Mylanta Suspension 30 ML CUP PO (11:51)
--- NOTE | 2018-03-07 11:57 | PHARADMIT ---
Admission Pharmacy Clinical Review copd exacerbation vs chf Code Status Full Code Current Weight Wgt- 91.4 kg Renally Cleared and Narrow Therapeutic Index Meds CrCl~ 41.3 mL/min Meds-OK QTc Value / Action Taken QTc-440 na BP Control, Fever BP- 136/56 Tmax-36.7C Electrolytes reviewed Na- 124 K+4.7 Mag- 1.6 DVT Prophylaxis Plavix, ASA, TEDS,SCDs Opiate Usage / Scheduled Bowel Regimen Ordered No Yes Plt/SCr for Heparin / Enoxaparin Plts- 234 SCr-1.14 INR for Warfarin H/H stable, WBC/Bands H&H- 9.5/28.1 WBC- 9.08 Antibiotic appropriateness Levaquin, Cultures and Sensitivities Bld-pending Surgical ABX d/c within 24 hr na DM control / Insulin Dosing BG- 182 Aspart, Heart Failure (Check EF%) (SADIA's, B-Block, Diuretics) Norvasc, Lisinopril, NTG, IV to PO Switch No Home Meds Reviewed Yes Home Meds Not Ordered Flonase, Loratadine, Meclizine, Requip, Spiriva Trazodone Comments
[2018-03-07] MEDS: rOPINIRole 0.5 MG TAB 0.25 MG PO (12:30)
--- NOTE | 2018-03-07 16:19 | W.PM.DS.N ---
Date of service: 03/07/18 Time of Service: 16:19 DS: Diagnosis Discharge Diagnosis (1) COPD exacerbation: Status: Acute (2) Diabetes: Status: Chronic (3) Hypertension: Status: Chronic (4) Coronary artery disease: Status: Chronic (5) Anemia: Status: Chronic (6) Depression: Status: Chronic (7) Rheumatoid arthritis: Status: Chronic (8) Hypothyroidism (acquired): Status: Chronic Discharge Plan Disposition Patient Disposition: HOME Condition: Good Discharge Details Reason For Visit: COPD EXACERBATION Admit Date/Time: 03/06/18 21:06 Admit Provider: Silvio Pablo Attending Provider: Silvio Pablo Primary Care Provider: Adilene Lester [facility] Hospital Course: Ms Ybarra is a 67 year old female with PMHx of COPD, HTN, Hyperlpidemia, tobacco abuse, who was admitted to [facility] on 03/06/18 for acute exacerbation of COPD. Her chest x-ray was questionable for pneumonia, but clinically she did not have a fever or a white count. Additionally, she responded unexpectedly quickly to the treatment with systemic steroids, antibiotics, nebs. It is felt that she had acute exacerbation of her COPD due to acute bronchitis rather than pneumonia. She feels not quite back to baseline but well enough to go home to complete her course of antibiotics and steroids. She promises to return to the hospital if she feels worse. Her exercise oxymetry performed prior to discharge demonstrated O2 sats that remained in the 90's on room air. She is to follow up with her PCP in 1-2 weeks. Home Meds and New Rx's Prescriptions: New ipratropium-albuterol 0.5 mg-3 mg(2.5 mg base)/3 mL Solution For Nebulization 3 ml UPD Q6H Qty: 100 RF: 0 guaifenesin [Mucinex] 600 mg tablet extended release 12hr 600 mg PO Q12H Qty: 10 RF: 0 levofloxacin 500 mg tablet 500 mg PO DAILY Qty: 5 RF: 0 prednisone 20 mg tablet See Label Instructions .ROUTE .COMPLEX Qty: 12 RF: 0 benzonatate [Tessalon Perles] 100 mg capsule 100 mg PO TID PRN (Reason: cough) Qty: 30 RF: 0 Continue gabapentin 300 mg capsule 300 mg PO BID RF: 0 fluticasone 50 mcg/actuation spray,suspension 1 spray JAKOB DAILY RF: 0 ferrous gluconate 324 mg (36 mg iron) tablet 324 mg PO DAILY RF: 0 clopidogrel 75 mg tablet 75 mg PO DAILY RF: 0 blood-glucose meter [FreeStyle Lite Meter] kit .ROUTE .MEDSUPPLY Qty: 1 RF: 0 amlodipine 10 mg tablet 10 mg PO DAILY RF: 0 aspirin 81 mg tablet,chewable 81 mg PO DAILY RF: 0 duloxetine 60 mg capsule,delayed release(DR/EC) 60 mg PO DAILY RF: 0 budesonide-formoterol [Symbicort] 160-4.5 mcg/actuation HFA aerosol inhaler 2 puff IH BID RF: 0 hwemwphgyfwk-[id number] [Cerovite Senior] tablet 1 tab PO DAILY RF: 0 metformin 500 mg tablet 500 mg PO DAILY RF: 0 nitroglycerin [Nitrostat] 0.4 mg tablet, sublingual 0.4 mg SL ONCE RF: 0 multivitamin tablet 1 tab PO DAILY RF: 0 atorvastatin 40 mg tablet 40 mg PO DAILY RF: 0 loratadine 10 mg tablet,disintegrating 10 mg PO DAILY RF: 0 meclizine 12.5 mg tablet 12.5 mg PO TID PRNRF: 0 calcium carbonate-vitamin D3 [Calcium 600 with Vitamin D3] 600 mg(1,500mg) -200 unit tablet 1 tab PO DAILY RF: 0 pantoprazole 40 mg tablet,delayed release (DR/EC) 40 mg PO DAILY RF: 0 montelukast [Singulair] 10 mg tablet 10 mg PO QPM RF: 0 lisinopril 5 mg tablet 5 mg PO DAILY RF: 0 gabapentin 600 MG tablet 600 mg PO .QHS RF: 0 sumatriptan succinate 100 MG tablet 100 mg PO PRN PRNRF: 0 hydroxychloroquine 200 MG tablet 400 mg PO DAILY RF: 0 levothyroxine 100 MCG recon soln 112 mcg PO DAILY RF: 0 trazodone 100 MG tablet 100 mg PO .QHS RF: 0 albuterol sulfate [Ventolin HFA] 8 GM HFA aerosol inhaler 2 puff Inhalation .Q4HR PRNRF: 0 tiotropium bromide [Spiriva with HandiHaler] 18 MCG capsule, w/inhalation device 18 mcg Inhalation DAILY RF: 0 ropinirole 0.5 MG tablet 0.25 mg PO DIRECTED RF: 0 Discharge Instructions Instructions: Prednisone (By mouth), Levofloxacin (By mouth), How to Stop Smoking (DC), COPD (Chronic Obstructive Pulmonary Disease) (DC) Additional Instructions: Finish your antibiotics and steroids as prescribed. We do not recommend that you take trazodone while you are taking levofloxacin due to a drug interaction. Return to the hospital if you are feeling worse, if you have any fevers, chest pain, or bleeding. Referrals: Adilene Lester [Primary Care Provider] - (1-2 weeks) Activity:: Activity as Tolerated Equipment/Supplies:: No Equipment Needed Diet:: heart healthy diabetic Discharge Orders Discharge Orders: Discharge Order (Routine); Ordered 03/07/18 Ordered By: Esther Haque Exam Narrative Exam Narrative: General: A&Ox3, NAD Neurological: no focal deficits Psychiatric: mildly anxious Skin: intact HEENT: EOMI, MMM Cardiovascular: RRR, no m/r/g Lungs: Quiet wheezing on expiration B Gastrointestinal: Abdomen soft, nontender, nondistended Extremities: no edema, clubbing, or cyanosis DS: Data Vitals/I&O Vitals and I&O: Vital Signs Temperature 36.1 C L 03/07/18 11:58 Temperature Source Tympanic 03/07/18 11:58 Pulse 90 03/07/18 12:01 Pulse Rhythm Regular 03/07/18 09:04 Pulse 93 H 03/07/18 12:30 Respiratory Rate 13 03/07/18 12:30 Respiratory Effort 03/07/18 09:04 Respiratory Depth Shallow 03/07/18 09:04 Respiratory Pattern Normal 03/07/18 09:04 Blood Pressure 130/63 03/07/18 12:01 Blood Pressure Mean 79 03/07/18 12:01 Blood Pressure Position Sitting 03/06/18 23:03 Pulse Oximetry 96 03/07/18 11:58 Oxygen Delivery Method Room Air 03/07/18 11:58 Oxygen Flow Rate 0 03/07/18 11:58 Pain Level 0 03/07/18 11:58 Intake & Output 03/06/18 03/07/18 03/07/18 23:59 11:59 23:59 Intake Total 500 / 500 1115 / 1115 480 / 480 Output Total 775 / 775 400 / 400 Balance 500 / 500 340 / 340 80 / 80 Weight 89.358 kg 91.4 kg Intake: IV 500 / 500 150 / 150 Oral 965 / 965 480 / 480 Output: Urine 775 / 775 400 / 400 Other: Urine Color Yellow Yellow Urine Appearance Clear Clear Urine Odor None None Voiding Methods Bedside Commode Bedside Commode Completed studies during hospitalization [Text1]: CXR: Question of a right middle lobe infiltrate. This may represent atelectasis or pneumonia. Labs on day of discharge: Labs from last 24 hours 03/07/18 03/07/18 03/07/18 06:20 06:20 06:20 WBC 9.08 RBC 3.24 L Hgb 9.5 L Hct 28.1 L MCV 86.7 MCH 29.3 MCHC 33.8 RDW 12.1 Plt Count 234 MPV 10.0 Immature Gran % 0.2 Neutrophils % 92.1 Lymphocytes % 4.1 Monocytes % 3.6 Eosinophils % 0.0 Basophils % 0.0 Absolute Neutrophils 8.36 H Absolute Lymphocytes 0.37 L Absolute Monocytes 0.33 Absolute Eosinophils 0.00 Absolute Basophils 0.00 Retic Count 1.6 D-Dimer Sample Site pCO2 pO2 O2 Saturation ABG pH ABG HCO3 ABG Total CO2 ABG Base Excess Sodium Potassium Chloride Carbon Dioxide Anion Gap BUN Creatinine Estimated GFR/1.73 m2 Glucose Lactate Calcium Magnesium 1.6 L Iron 25 L TIBC 299 Transferrin % Sat 8 L Ferritin Total Bilirubin AST ALT Alkaline Phosphatase Lactate Dehydrogenase Troponin I < 0.02 Total Protein Albumin TSH Direct Antiglob Test 03/07/18 03/06/18 03/06/18 06:20 21:05 19:15 WBC RBC Hgb Hct MCV MCH MCHC RDW Plt Count MPV Immature Gran % Neutrophils % Lymphocytes % Monocytes % Eosinophils % Basophils % Absolute Neutrophils Absolute Lymphocytes Absolute Monocytes Absolute Eosinophils Absolute Basophils Retic Count D-Dimer Sample Site Right radial pCO2 33 L pO2 57 L O2 Saturation 92 L ABG pH 7.46 H ABG HCO3 23 ABG Total CO2 22 ABG Base Excess -0.5 Sodium 124 L* Potassium 4.7 Chloride 89 L Carbon Dioxide 22.8 Anion Gap 12.2 H BUN 16 Creatinine 1.14 H Estimated GFR/1.73 m2 47.54 Glucose 182 H Lactate Calcium 8.5 Magnesium Iron TIBC Transferrin % Sat Ferritin 135 Total Bilirubin AST ALT Alkaline Phosphatase Lactate Dehydrogenase 160 Troponin I Total Protein Albumin TSH 0.91 Direct Antiglob Test Negative 03/06/18 03/06/18 03/06/18 19:15 19:15 19:15 WBC 8.58 RBC 3.44 L Hgb 10.6 L Hct 29.9 L MCV 86.9 MCH 30.8 MCHC 35.5 RDW 12.2 Plt Count 241 MPV 9.4 Immature Gran % 0.2 Neutrophils % 79.6 Lymphocytes % 8.7 Monocytes % 10.4 Eosinophils % 0.8 Basophils % 0.3 Absolute Neutrophils 6.82 H Absolute Lymphocytes 0.75 L Absolute Monocytes 0.89 H Absolute Eosinophils 0.07 Absolute Basophils 0.03 Retic Count D-Dimer 355 Sample Site pCO2 pO2 O2 Saturation ABG pH ABG HCO3 ABG Total CO2 ABG Base Excess Sodium Potassium Chloride Carbon Dioxide Anion Gap BUN Creatinine Estimated GFR/1.73 m2 Glucose Lactate 1.4 Calcium Magnesium Iron TIBC Transferrin % Sat Ferritin Total Bilirubin AST ALT Alkaline Phosphatase Lactate Dehydrogenase Troponin I Total Protein Albumin TSH Direct Antiglob Test 03/06/18 19:15 WBC RBC Hgb Hct MCV MCH MCHC RDW Plt Count MPV Immature Gran % Neutrophils % Lymphocytes % Monocytes % Eosinophils % Basophils % Absolute Neutrophils Absolute Lymphocytes Absolute Monocytes Absolute Eosinophils Absolute Basophils Retic Count D-Dimer Sample Site pCO2 pO2 O2 Saturation ABG pH ABG HCO3 ABG Total CO2 ABG Base Excess Sodium 126 L Potassium 4.5 Chloride 90 L Carbon Dioxide 25.1 Anion Gap 10.9 BUN 11 Creatinine 0.99 Estimated GFR/1.73 m2 55.95 Glucose 118 H Lactate Calcium 8.8 Magnesium 1.5 L Iron TIBC Transferrin % Sat Ferritin Total Bilirubin 0.4 AST 21 ALT 25 Alkaline Phosphatase 77 Lactate Dehydrogenase Troponin I < 0.02 Total Protein 7.2 Albumin 3.8 TSH Direct Antiglob Test 03/07/18 12:10 Sputum Sputum Culture - Pending 03/06/18 19:52 Blood Blood Culture - Pending 03/06/18 19:15 Blood Blood Culture - Pending Preliminary micro results at discharge 03/07/18 12:10 Sputum Culture - Pending Sputum 03/06/18 19:52 Blood Culture - Pending Blood 03/06/18 19:15 Blood Culture - Pending Blood
== END 2018-03-07 17:00 | disposition home or self-care (01) | DRG 202 ==
LOC: ER 22:43 → ICU 03-07 10:42
PROVIDERS: Admitting Provider Internal Medicine; Emergency Provider Nurse Practitioner Family; PCP Nurse Practitioner; Visit Provider Internal Medicine
DX: J20.2 Acute bronchitis due to streptococcus (principal); J44.0 Chronic obstructive pulmonary disease with (acute) lower respiratory infection; J44.1 Chronic obstructive pulmonary disease with (acute) exacerbation; R09.02 Hypoxemia; E11.9 Type 2 diabetes mellitus without complications; I10 Essential (primary) hypertension; I25.10 Atherosclerotic heart disease of native coronary artery without angina pectoris; F32.9 Major depressive disorder, single episode, unspecified; M06.9 Rheumatoid arthritis, unspecified; E03.9 Hypothyroidism, unspecified; F17.210 Nicotine dependence, cigarettes, uncomplicated; D53.9 Nutritional anemia, unspecified; Z79.84 Long term (current) use of oral hypoglycemic drugs
CPT/HCPCS: 36415; 80048; 80053; 82805; 87040; 87077; 93005; 94640; 96361; 96365; 96375; 99223; 99239; 99285; 71046; 82728; 83540; 83550; 83605; 83615; 83735; 84443; 84484; 85025; 85045; 85379; 86880; 87070; 87186; 87205; 93010; J1956; J2930; J7512; J7611; J7620

== ENCOUNTER 2018-03-12 21:06 | Inpatient (IN) | payer MEDICARE, MEDICAID, SELFPAY ==
[2018-03-12] VITALS (30 sets, daily range): BP systolic 100–167; BP diastolic 46–115; PULSE 107–121; RESP 4–30; TEMP 37.3–38.7; O2SAT 88–93
--- NOTE | 2018-03-12 21:22 | DI.RAD_ITS ---
SYMPTOM/DIAGNOSIS: SOB PORTABLE AP CHEST: 03/12/18 The heart is not enlarged. There are patchy areas of increased intrapulmonary radiodensity in the lung bases,more prominent than on previous examination of 03/06/18, raising the possibility of acute pneumonia, aspiration pneumonia not excluded. Upper lung zones appear generally clear. No gross pleural effusion identified on this frontal film. CONCLUSION: Findings suggesting interval development of bibasilar pneumonia.
[2018-03-12] MEDS: Albuterol/Ipratropium 3 ML UPD VIAL (21:26)
[2018-03-12] MEDS: methylPREDNISolone SUCC 125 MG VIAL (21:28)
[2018-03-12 21:35] LABS: Abs Immature Grans 0.14 k/cumm (0.0-0.09); HCT 28.2 % (36.0-46.0); HGB 9.8 g/dL (12.0-15.5); Mean Corp. HGB Concentration 34.8 g/dL (32.0-36.0); Mean Corpuscular Hemoglobin 30.1 pg (27.0-33.0); Mean Corpuscular Volume 86.5 fL (80-95); Mean Platelet Volume 8.7 fL (8.0-11.0); Platelet Count 344 x1000/uL (130-400); RBC 3.26 m/cumm (4.00-5.20); RBC Distribution Width 12.2 % (11.7-14.6); White Blood Cell Count 14.77 k/cumm (4.4-10.8)
[2018-03-12] MEDS: Albuterol/Ipratropium 3 ML UPD VIAL UPD (21:45)
[2018-03-12 21:52] LABS: Absolute Lymphocyte Count 1.77 k/cumm (1.2-3.4)
[2018-03-12 21:53] LABS: Diff Comment Manual Differential; RBC Morphology Normal
[2018-03-12 22:03] LABS: NT-proBNP 132 pg/mL
[2018-03-12 22:05] LABS: Troponin I < 0.02 ng/mL (0.00-0.06)
[2018-03-12 22:06] LABS: ALT 28 U/L (12-78); AST 20 U/L (15-37); Albumin 3.8 g/dL (3.4-5.0); Alkaline Phosphatase 66 U/L (46-116); Anion Gap 8.5 mmol/L (3-11); BUN 24 mg/dL (7-18); Bilirubin, Total 0.4 mg/dL (0.2-1.0); CO2 27.5 mmol/L (21.0-32.0); CREATININE 1.08 mg/dL (0.55-1.02); Calcium 8.7 mg/dL (8.5-10.1); Chloride 91 mmol/L (98-107); Glucose 169 mg/dL (70-100); Potassium 4.2 mmol/L (3.5-5.1); Sodium 127 mmol/L (136-145); Total Protein 7.2 g/dL (6.4-8.2)
--- NOTE | 2018-03-12 22:11 | W.ED.GENAD ---
Discharge Plan Disposition Condition: Good Discharge Details Chief Complaint: SOB Reason For Visit: HCAP Admit Date/Time: 03/12/18 22:45 Admit Provider: Silvio Pablo Attending Provider: Silvio Pablo Primary Care Provider: Adilene Lester ED Provider: Aamir Gillette Discharge Instructions Activity:: Activity as Tolerated Equipment/Supplies:: No Equipment Needed Diet:: Carb Counting Discharge Orders Discharge Orders: Discharge Order (Routine); Ordered 03/18/18 Ordered By: Daron Reed Discharge Data Discharge Date/Time-TO BE ENTERED AT DEPARTURE: 03/12/18 23:25 Medical Decision Making 10:00 -- Patient seen immediately on arrival. 67-year-old female with history of COPD, diabetes, hypertension, coronary artery disease, recently discharged after being treated for COPD exacerbation with acute bronchitis, finished prednisone course, still on Levaquin, here with worsening shortness of breath, fever, tachycardic and tachypneic. Concern for pneumonia and sepsis. Patient is in critical condition on arrival. Will give duoneb treatments, solu-medrol and reassess. ECG reviewed and interpreted by ks sinus tachycardia 114 bpm, normal axis, nonspecific ST depression is noted laterally V4 to V6. Nondiagnostic. 10:30 -- Respiratory therapy was consulted. Patient has improved with duonebs x2 but still has wheeze. Will continue albuterol nebs. Chest x-ray reviewed and interpreted by radiology: Small amount of airspace disease in the lung bases could represent pneumonias or postinflammatory change from aspiration. No history of aspiration. Labs reviewed and leukocytosis noted. Suspect pneumonia. Blood cultures and lactate pending. Plan to add broad-spectrum antibiotic coverage. Will give IVF bolus. 10:45 -- Spoke with Dr. Dover: discussed case including presentation, current diagnostics, and treatment. He will admit to ICU. Care transitioned to Dr. Pablo. Lactate pending at time of admission. HPI General Mode of arrival: wheelchair. Date/Time Provider Initiated Documentation: 03/12/18 21:09. Limitations to Documentation: no limitations. Information obtained by: patient and family. HPI Narrative: 67-year-old female with past medical history significant for COPD, diabetes, hypertension, coronary artery disease, rheumatoid arthritis, presents with chief complaint of shortness of breath. Patient was admitted to [facility] on 03/06/2018 for COPD exacerbation and bronchitis. She improved and was discharged the following day on prednisone and levaquin. Patient has completed a course of prednisone. Patient notes that while she was home for 2 days after discharge she was doing well. Over the past couple days she has had worsening shortness of breath. Shortness of breath is now severe. She has associated wheeze. She also notes associated intermittent pleuritic chest discomfort today. Patient has been using her neb treatments without much improvement in her symptoms. Related Data Home Medications Medication Instructions Recorded Confirmed albuterol sulfate [Ventolin HFA] 2 puff INHALATION .Q4HR PRN 02/06/15 03/12/18 gabapentin 600 mg PO .QHS 02/06/15 03/12/18 hydroxychloroquine 400 mg PO DAILY 02/06/15 03/12/18 levothyroxine 112 mcg PO DAILY 02/06/15 03/06/18 sumatriptan succinate 100 mg PO PRN PRN 02/06/15 03/12/18 trazodone 100 mg PO .QHS 02/06/15 03/12/18 ropinirole 0.25 mg PO DIRECTED 12/11/17 03/12/18 tiotropium bromide [Spiriva with 18 mcg INHALATION DAILY 12/11/17 03/12/18 HandiHaler] amlodipine 10 mg tablet 10 mg PO DAILY 02/13/18 03/12/18 aspirin 81 mg chewable tablet 81 mg PO DAILY 02/13/18 03/12/18 blood-glucose meter kit #1 each 02/13/18 budesonide-formoterol HFA 160 2 puff IH BID 02/13/18 03/12/18 mcg-4.5 mcg/actuation aerosol inhaler calcium carbonate 600 mg (1,500 1 tab PO DAILY 02/13/18 03/12/18 mg)-vitamin D3 200 unit tablet duloxetine 60 mg capsule,delayed 60 mg PO DAILY 02/13/18 03/06/18 release ferrous gluconate 324 mg (36 mg 324 mg PO DAILY tab 02/13/18 03/12/18 iron) tablet fluticasone 50 mcg/actuation nasal 1 spray JAKOB DAILY 02/13/18 03/12/18 spray,suspension gabapentin 300 mg capsule 300 mg PO BID 02/13/18 03/12/18 lisinopril 5 mg tablet 5 mg PO DAILY 02/13/18 03/12/18 loratadine 10 mg disintegrating 10 mg PO DAILY 02/13/18 03/12/18 tablet meclizine 12.5 mg tablet 12.5 mg PO TID PRN 02/13/18 03/12/18 metformin 500 mg tablet 500 mg PO DAILY tab 02/13/18 03/12/18 montelukast 10 mg tablet 10 mg PO QPM 02/13/18 03/12/18 multivitamin tablet 1 tab PO DAILY 02/13/18 03/12/18 nitroglycerin 0.4 mg sublingual 0.4 mg SL ONCE 02/13/18 03/12/18 tablet benzonatate [Tessalon Perles] 100 mg PO TID PRN #30 cap 03/07/18 03/12/18 guaifenesin [Mucinex] 600 mg PO Q12H #10 tab 03/07/18 03/12/18 ipratropium-albuterol 3 ml UPD Q6H #100 vial 03/07/18 03/12/18 levofloxacin 500 mg PO DAILY #5 tab 03/07/18 03/12/18 prednisone See Label Instructions .ROUTE 03/07/18 03/12/18 .COMPLEX #12 tab fluticasone 0 g NS DAILY #0 g 03/18/18 gabapentin 300 mg PO BID #0 cap 03/18/18 gabapentin [Neurontin] 600 mg PO HS #0 tab 03/18/18 hydroxychloroquine 400 mg PO DAILY #0 tab 03/18/18 ipratropium-albuterol 3 ml UPD Q4H PRN PRN #0 ml 03/18/18 levothyroxine 100 mcg PO DAILY@0600 #0 tab 03/18/18 melatonin 3 mg PO HS #0 tab 03/18/18 pantoprazole 40 mg PO BID #60 tab 03/18/18 prednisone See Label Instructions .ROUTE 03/18/18 .COMPLEX #20 tab ropinirole 0.25 mg PO HS #0 tab 03/18/18 sucralfate 1 g PO AC & HS #120 tab 03/18/18 tiotropium bromide [Spiriva with 1 cap INHALATION DAILY #0 inh 03/18/18 HandiHaler] trazodone 100 mg PO HS #0 tab 03/18/18 varenicline [Chantix Starting 1 dose pk PO DAILY #1 dose pk 03/18/18 Month Box] Previous Rx's Medication Instructions Recorded benzonatate [Tessalon Perles] 100 mg PO TID PRN #30 cap 03/07/18 guaifenesin [Mucinex] 600 mg PO Q12H #10 tab 03/07/18 ipratropium-albuterol 3 ml UPD Q6H #100 vial 03/07/18 levofloxacin 500 mg PO DAILY #5 tab 03/07/18 prednisone See Label Instructions .ROUTE 03/07/18 .COMPLEX #12 tab fluticasone 0 g NS DAILY #0 g 03/18/18 gabapentin 300 mg PO BID #0 cap 03/18/18 gabapentin [Neurontin] 600 mg PO HS #0 tab 03/18/18 hydroxychloroquine 400 mg PO DAILY #0 tab 03/18/18 ipratropium-albuterol 3 ml UPD Q4H PRN PRN #0 ml 03/18/18 levothyroxine 100 mcg PO DAILY@0600 #0 tab 03/18/18 melatonin 3 mg PO HS #0 tab 03/18/18 pantoprazole 40 mg PO BID #60 tab 03/18/18 prednisone See Label Instructions .ROUTE 03/18/18 .COMPLEX #20 tab ropinirole 0.25 mg PO HS #0 tab 03/18/18 sucralfate 1 g PO AC & HS #120 tab 03/18/18 tiotropium bromide [Spiriva with 1 cap INHALATION DAILY #0 inh 03/18/18 HandiHaler] trazodone 100 mg PO HS #0 tab 03/18/18 varenicline [Chantix Starting 1 dose pk PO DAILY #1 dose pk 03/18/18 Month Box] Allergies Allergy/AdvReac Type Severity Reaction Status Date / Time ampicillin AdvReac Mild stuffy/feve Unverified 03/12/18 21:24 r clindamycin AdvReac Mild stuffy/feve Unverified 03/12/18 21:24 r Penicillins AdvReac Mild stuffy/feve Unverified 03/12/18 21:24 r Sulfa (Sulfonamide AdvReac Mild stuffy/feve Unverified 03/12/18 21:24 Antibiotics) r tramadol AdvReac Mild stuffy/feve Unverified 03/12/18 21:[address] contrast Allergy Unknown pt not Uncoded 03/12/18 21:24 sure of allergy General Stated Complaint: SOB ANASTACIA: 2 Review of Systems Review of Systems All systems reviewed & are unremarkable except as noted in HPI and below Constitutional Reports fever(s) Cardiovascular Reports as per HPI and Reports chest pain Respiratory Reports as per HPI PFSH Medical History Sarcoidosis (Chronic) Takotsubo cardiomyopathy (Chronic) Depression (Chronic) Rheumatoid arthritis (Chronic) Hypothyroidism (acquired) (Chronic) Anemia (Chronic) Coronary artery disease (Chronic) COPD (chronic obstructive pulmonary disease) (Chronic) Hypertension (Chronic) Diabetes (Chronic) Myocardial infarct (Chronic) Social History household members: family housing: other details: lives w/ her sister in [place], [place] number of children: 2 Smoking/Tobacco Use Status: Current every day tobacco type: cigarettes alcohol intake: current alcohol intake frequency: holidays/special occasions only Alcohol type: wine substance use type: does not use Surgical History H/O tubal ligation (Resolved) History of cholecystectomy (Resolved) History of total knee arthroplasty (Resolved) Hx of cardiac cath (Resolved) S/P appendectomy (Resolved) Exam Const General: cooperative and in distress respiratory (mild) HENMT Head: normocephalic and atraumatic Mouth: moist mucous membranes Eyes Conjunctivae: normal conjunctivae Sclera: normal sclerae EOM: EOM intact bilaterally Neck Neck: trachea midline and supple Resp Auscultation: no rales, no rhonchi and wheezes expiratory wheezes (bilateral) Cardio Jugular venous pressure: no JVD Rate: tachycardic Rhythm: regular rhythm GI Palpation: soft, not firm, no guarding, no masses, not rigid and nontender Skin General skin exam: no rashes or lesions noted Neuro General: alert, awake, oriented x3 and tone normal Extrem General: no calf tenderness bilaterally and no edema Psych Appearance: grossly normal Mental Status: mental status grossly normal Speech and Movement: speech and movement normal Course Vital Signs Temperature 38.7 C H 03/12/18 21:14 Pulse 117 H 03/12/18 21:14 Respiratory Rate 16 03/12/18 21:14 Blood Pressure 167/82 H 03/12/18 21:14 Pulse Oximetry 90 L 03/12/18 21:14 Temperature 38.7 C H 03/12/18 21:14 Temperature Source Temporal Artery Scan 03/12/18 21:14 Pulse 117 H 03/12/18 21:14 Respiratory Rate 16 03/12/18 21:14 Respiratory Effort Accessory Muscle Use 03/12/18 21:21 Blood Pressure 167/82 H 03/12/18 21:14 Pulse Oximetry 90 L 03/12/18 21:14 Oxygen Delivery Method Room Air 03/12/18 21:26 Oxygen Flow Rate 0 03/12/18 21:26 Lab/Test Results Lab/Test Results: 03/12/18 21:37 Nasopharynx Influenza Types A,B Antigen - Pending Laboratory Tests Range/Units 03/12/18 03/12/18 21:18 21:18 WBC (4.4-10.8) k/cumm 14.77 H RBC (4.00-5.20) m/cumm 3.26 L Hgb (12.0-15.5) g/dL 9.8 L Hct (36.0-46.0) % 28.2 L MCV (80-95) fL 86.5 MCH (27.0-33.0) pg 30.1 MCHC (32.0-36.0) g/dL 34.8 RDW (11.7-14.6) % 12.2 Plt Count (130-400) x1000/uL 344 D MPV (8.0-11.0) fL 8.7 Immature Gran % 0.0 Neutrophils % 86.0 Lymphocytes % 12.0 Monocytes % 2.0 Eosinophils % 0.0 Basophils % 0.0 Absolute Neutrophils (1.2-6.7) k/cumm 12.70 H Absolute Lymphocytes (1.2-3.4) k/cumm 1.77 Absolute Monocytes (0.11-0.7) k/cumm 0.30 Absolute Eosinophils (0.0-0.7) k/cumm 0.00 Absolute Basophils (0.0-0.2) k/cumm 0.00 Differential Comment Manual differential RBC Morphology Normal Troponin I (0.00-0.06) ng/mL < 0.02 NT-Pro-B Natriuret Pep ( - 299) pg/mL 132 Critical Care Time Critical Care Time: Yes Total Critical Care Time: 45 Attestation: I spent greater than 45 minutes addressing this patient's immediate life threats
--- NOTE | 2018-03-12 22:21 | ED.GENADUL_ITS ---
Discharge Plan Disposition Condition: Good Discharge Details Chief Complaint: SOB Reason For Visit: HCAP Admit Date/Time: 03/12/18 22:45 Admit Provider: Silvio Pablo Attending Provider: Silvio Pablo Primary Care Provider: Adilene Lester ED Provider: Aamir Gillette Discharge Instructions Activity:: Activity as Tolerated Equipment/Supplies:: No Equipment Needed Diet:: Carb Counting Discharge Orders Discharge Orders: Discharge Order (Routine); Ordered 03/18/18 Ordered By: Daron Reed Discharge Data Discharge Date/Time-TO BE ENTERED AT DEPARTURE: 03/12/18 23:25 Medical Decision Making 10:00 -- Patient seen immediately on arrival. 67-year-old female with history of COPD, diabetes, hypertension, coronary artery disease, recently discharged after being treated for COPD exacerbation with acute bronchitis, finished prednisone course, still on Levaquin, here with worsening shortness of breath, fever, tachycardic and tachypneic. Concern for pneumonia and sepsis. Patient is in critical condition on arrival. Will give duoneb treatments, solu- medrol and reassess. ECG reviewed and interpreted by sc sinus tachycardia 114 bpm, normal axis, nonspecific ST depression is noted laterally V4 to V6. Nondiagnostic. 10:30 -- Respiratory therapy was consulted. Patient has improved with duonebs x2 but still has wheeze. Will continue albuterol nebs. Chest x-ray reviewed and interpreted by radiology: Small amount of airspace disease in the lung bases could represent pneumonias or postinflammatory change from aspiration. No history of aspiration. Labs reviewed and leukocytosis noted. Suspect pneumonia. Blood cultures and lactate pending. Plan to add broad-spectrum antibiotic coverage. Will give IVF bolus. 10:45 -- Spoke with Dr. Dover: discussed case including presentation, current diagnostics, and treatment. He will admit to ICU. Care transitioned to Dr. Pablo. Lactate pending at time of admission. HPI General Mode of arrival: wheelchair . Date/Time Provider Initiated Documentation: 03/12/18 21:09 . Limitations to Documentation: no limitations . Information obtained by: patient and family . HPI Narrative: 67-year-old female with past medical history significant for COPD , diabetes, hypertension, coronary artery disease, rheumatoid arthritis, presents with chief complaint of shortness of breath. Patient was admitted to [facility] on 03/06/2018 for COPD exacerbation and bronchitis. She improved and was discharged the following day on prednisone and levaquin. Patient has completed a course of prednisone. Patient notes that while she was home for 2 days after discharge she was doing well. Over the past couple days she has had worsening shortness of breath. Shortness of breath is now severe. She has associated wheeze. She also notes associated intermittent pleuritic chest discomfort today. Patient has been using her neb treatments without much improvement in her symptoms. Related Data Home Medications Medication Instructions Recorded Confirmed albuterol sulfate [Ventolin HFA] 2 puff INHALATION .Q4HR PRN 02/06/15 03/12/18 gabapentin 600 mg PO .QHS 02/06/15 03/12/18 hydroxychloroquine 400 mg PO DAILY 02/06/15 03/12/18 levothyroxine 112 mcg PO DAILY 02/06/15 03/06/18 sumatriptan succinate 100 mg PO PRN PRN 02/06/15 03/12/18 trazodone 100 mg PO .QHS 02/06/15 03/12/18 ropinirole 0.25 mg PO DIRECTED 12/11/17 03/12/18 tiotropium bromide [Spiriva with 18 mcg INHALATION DAILY 12/11/17 03/12/18 HandiHaler] amlodipine 10 mg tablet 10 mg PO DAILY 02/13/18 03/12/18 aspirin 81 mg chewable tablet 81 mg PO DAILY 02/13/18 03/12/18 blood-glucose meter kit #1 each 02/13/18 budesonide-formoterol HFA 160 2 puff IH BID 02/13/18 03/12/18 mcg-4.5 mcg/actuation aerosol inhaler calcium carbonate 600 mg (1,500 1 tab PO DAILY 02/13/18 03/12/18 mg)-vitamin D3 200 unit tablet duloxetine 60 mg capsule,delayed 60 mg PO DAILY 02/13/18 03/06/18 release ferrous gluconate 324 mg (36 mg 324 mg PO DAILY tab 02/13/18 03/12/18 iron) tablet fluticasone 50 mcg/actuation nasal 1 spray JAKOB DAILY 02/13/18 03/12/18 spray,suspension gabapentin 300 mg capsule 300 mg PO BID 02/13/18 03/12/18 lisinopril 5 mg tablet 5 mg PO DAILY 02/13/18 03/12/18 loratadine 10 mg disintegrating 10 mg PO DAILY 02/13/18 03/12/18 tablet meclizine 12.5 mg tablet 12.5 mg PO TID PRN 02/13/18 03/12/18 metformin 500 mg tablet 500 mg PO DAILY tab 02/13/18 03/12/18 montelukast 10 mg tablet 10 mg PO QPM 02/13/18 03/12/18 multivitamin tablet 1 tab PO DAILY 02/13/18 03/12/18 nitroglycerin 0.4 mg sublingual 0.4 mg SL ONCE 02/13/18 03/12/18 tablet benzonatate [Tessalon Perles] 100 mg PO TID PRN #30 cap 03/07/18 03/12/18 guaifenesin [Mucinex] 600 mg PO Q12H #10 tab 03/07/18 03/12/18 ipratropium-albuterol 3 ml UPD Q6H #100 vial 03/07/18 03/12/18 levofloxacin 500 mg PO DAILY #5 tab 03/07/18 03/12/18 prednisone See Label Instructions .ROUTE 03/07/18 03/12/18 .COMPLEX #12 tab fluticasone 0 g NS DAILY #0 g 03/18/18 gabapentin 300 mg PO BID #0 cap 03/18/18 gabapentin [Neurontin] 600 mg PO HS #0 tab 03/18/18 hydroxychloroquine 400 mg PO DAILY #0 tab 03/18/18 ipratropium-albuterol 3 ml UPD Q4H PRN PRN #0 ml 03/18/18 levothyroxine 100 mcg PO DAILY@0600 #0 tab 03/18/18 melatonin 3 mg PO HS #0 tab 03/18/18 pantoprazole 40 mg PO BID #60 tab 03/18/18 prednisone See Label Instructions .ROUTE 03/18/18 .COMPLEX #20 tab ropinirole 0.25 mg PO HS #0 tab 03/18/18 sucralfate 1 g PO AC & HS #120 tab 03/18/18 tiotropium bromide [Spiriva with 1 cap INHALATION DAILY #0 inh 03/18/18 HandiHaler] trazodone 100 mg PO HS #0 tab 03/18/18 varenicline [Chantix Starting 1 dose pk PO DAILY #1 dose pk 03/18/18 Month Box] Previous Rx's Medication Instructions Recorded benzonatate [Tessalon Perles] 100 mg PO TID PRN #30 cap 03/07/18 guaifenesin [Mucinex] 600 mg PO Q12H #10 tab 03/07/18 ipratropium-albuterol 3 ml UPD Q6H #100 vial 03/07/18 levofloxacin 500 mg PO DAILY #5 tab 03/07/18 prednisone See Label Instructions .ROUTE 03/07/18 .COMPLEX #12 tab fluticasone 0 g NS DAILY #0 g 03/18/18 gabapentin 300 mg PO BID #0 cap 03/18/18 gabapentin [Neurontin] 600 mg PO HS #0 tab 03/18/18 hydroxychloroquine 400 mg PO DAILY #0 tab 03/18/18 ipratropium-albuterol 3 ml UPD Q4H PRN PRN #0 ml 03/18/18 levothyroxine 100 mcg PO DAILY@0600 #0 tab 03/18/18 melatonin 3 mg PO HS #0 tab 03/18/18 pantoprazole 40 mg PO BID #60 tab 03/18/18 prednisone See Label Instructions .ROUTE 03/18/18 .COMPLEX #20 tab ropinirole 0.25 mg PO HS #0 tab 03/18/18 sucralfate 1 g PO AC & HS #120 tab 03/18/18 tiotropium bromide [Spiriva with 1 cap INHALATION DAILY #0 inh 03/18/18 HandiHaler] trazodone 100 mg PO HS #0 tab 03/18/18 varenicline [Chantix Starting 1 dose pk PO DAILY #1 dose pk 03/18/18 Month Box] Allergies Allergy/AdvReac Type Severity Reaction Status Date / Time ampicillin AdvReac Mild stuffy/feve Unverified 03/12/18 21:24 r clindamycin AdvReac Mild stuffy/feve Unverified 03/12/18 21:24 r Penicillins AdvReac Mild stuffy/feve Unverified 03/12/18 21:24 r Sulfa (Sulfonamide AdvReac Mild stuffy/feve Unverified 03/12/18 21:24 Antibiotics) r tramadol AdvReac Mild stuffy/feve Unverified 03/12/18 21:[address] contrast Allergy Unknown pt not Uncoded 03/12/18 21:24 sure of allergy General Stated Complaint: SOB ANASTACIA: 2 Review of Systems Review of Systems All systems reviewed & are unremarkable except as noted in HPI and below Constitutional Reports fever(s) Cardiovascular Reports as per HPI and Reports chest pain Respiratory Reports as per HPI PFSH Medical History Sarcoidosis (Chronic) Takotsubo cardiomyopathy (Chronic) Depression (Chronic) Rheumatoid arthritis (Chronic) Hypothyroidism (acquired) (Chronic) Anemia (Chronic) Coronary artery disease (Chronic) COPD (chronic obstructive pulmonary disease) (Chronic) Hypertension (Chronic) Diabetes (Chronic) Myocardial infarct (Chronic) Social History household members: family housing: other details: lives w/ her sister in [place], [place] number of children: 2 Smoking/Tobacco Use Status: Current every day tobacco type: cigarettes alcohol intake: current alcohol intake frequency: holidays/special occasions only Alcohol type: wine substance use type: does not use Surgical History H/O tubal ligation (Resolved) History of cholecystectomy (Resolved) History of total knee arthroplasty (Resolved) Hx of cardiac cath (Resolved) S/P appendectomy (Resolved) Exam Const General: cooperative and in distress respiratory (mild) HENMT Head: normocephalic and atraumatic Mouth: moist mucous membranes Eyes Conjunctivae: normal conjunctivae Sclera: normal sclerae EOM: EOM intact bilaterally Neck Neck: trachea midline and supple Resp Auscultation: no rales, no rhonchi and wheezes expiratory wheezes (bilateral) Cardio Jugular venous pressure: no JVD Rate: tachycardic Rhythm: regular rhythm GI Palpation: soft, not firm, no guarding, no masses, not rigid and nontender Skin General skin exam: no rashes or lesions noted Neuro General: alert, awake, oriented x3 and tone normal Extrem General: no calf tenderness bilaterally and no edema Psych Appearance: grossly normal Mental Status: mental status grossly normal Speech and Movement: speech and movement normal Course Vital Signs Temperature 38.7 C H 03/12/18 21:14 Pulse 117 H 03/12/18 21:14 Respiratory Rate 16 03/12/18 21:14 Blood Pressure 167/82 H 03/12/18 21:14 Pulse Oximetry 90 L 03/12/18 21:14 Temperature 38.7 C H 03/12/18 21:14 Temperature Source Temporal Artery Scan 03/12/18 21:14 Pulse 117 H 03/12/18 21:14 Respiratory Rate 16 03/12/18 21:14 Respiratory Effort Accessory Muscle Use 03/12/18 21:21 Blood Pressure 167/82 H 03/12/18 21:14 Pulse Oximetry 90 L 03/12/18 21:14 Oxygen Delivery Method Room Air 03/12/18 21:26 Oxygen Flow Rate 0 03/12/18 21:26 Lab/Test Results Lab/Test Results: 03/12/18 21:37 Nasopharynx Influenza Types A,B Antigen - Pending Laboratory Tests Range/Units 03/12/18 03/12/18 21:18 21:18 WBC (4.4-10.8) k/cumm 14.77 H RBC (4.00-5.20) m/cumm 3.26 L Hgb (12.0-15.5) g/dL 9.8 L Hct (36.0-46.0) % 28.2 L MCV (80-95) fL 86.5 MCH (27.0-33.0) pg 30.1 MCHC (32.0-36.0) g/dL 34.8 RDW (11.7-14.6) % 12.2 Plt Count (130-400) x1000/uL 344 D MPV (8.0-11.0) fL 8.7 Immature Gran % 0.0 Neutrophils % 86.0 Lymphocytes % 12.0 Monocytes % 2.0 Eosinophils % 0.0 Basophils % 0.0 Absolute Neutrophils (1.2-6.7) k/cumm 12.70 H Absolute Lymphocytes (1.2-3.4) k/cumm 1.77 Absolute Monocytes (0.11-0.7) k/cumm 0.30 Absolute Eosinophils (0.0-0.7) k/cumm 0.00 Absolute Basophils (0.0-0.2) k/cumm 0.00 Differential Comment Manual differential RBC Morphology Normal Troponin I (0.00-0.06) ng/mL < 0.02 NT-Pro-B Natriuret Pep ( - 299) pg/mL 132 Critical Care Time Critical Care Time: Yes Total Critical Care Time: 45 Attestation: I spent greater than 45 minutes addressing this patient's immediate life threats
--- NOTE | 2018-03-12 22:24 | DI.VRAD_ITS ---
EXAM: XR Chest, 1 View EXAM DATE/TIME: 03/12/2018 9:25 PM CLINICAL HISTORY: 67 years old, female; Signs and symptoms; Shortness of breath; Patient HX: SOB TECHNIQUE: XR of the chest, 1 view. COMPARISON: CR XR CHEST 2V PA LATERAL 03/06/2018 8:03 PM FINDINGS: Lungs: Small amount of airspace disease in both lung bases. Pleural space: Unremarkable. No pleural effusion. No pneumothorax. Heart/Mediastinum: Unremarkable. No cardiomegaly. Bones/joints: Unremarkable. IMPRESSION: Small amount of airspace disease in the lung bases could represent pneumonias or postinflammatory change from aspiration. Dictated and Authenticated by: Charles Gill MD. Ordering:ULI CHANG MD
[2018-03-12 22:34] LABS: D-Dimer 273 ng/mlFEU (<500)
[2018-03-12 22:43] LABS: Lactate-non-spesis 1.2 mmol/L (0.6-1.4)
[2018-03-12] MEDS: Lactated Ringers 1,000 ML 1000 ML IV (22:56)
[2018-03-12] MEDS: CEFEPIME 2 GM in Normal Saline 100 ML IVPB (22:57)
--- NOTE | 2018-03-12 23:50 | HPE_ITS ---
Date of service: 03/12/18 Time of Service: 23:39 Assessment and Plan (1) HCAP (healthcare-associated pneumonia): Current visit: No Status: Acute continue Cefepime and Vancomycin; she has failed outpatient Levaquin and has developed new bibasilar infiltrates c/w pneumonia. cont. iv corticosteroids and scheduled bronchodilators (2) COPD (chronic obstructive pulmonary disease): Current visit: No Status: Chronic as above. continue her Symbicort but hold Spiriva while she is receiving scheduled DuoNeb (3) Hypertension: Current visit: No Status: Chronic continue home meds of amlodipine and lisinopril (4) Diabetes: Current visit: No Status: Chronic continue metformin, monitor glucose AC&HS and give sliding scale novlog prn elevated glucose (5) Anemia: Current visit: No Status: Chronic stable. monitor for now. cont. home dose of iron (6) Hypothyroidism (acquired): Current visit: No Status: Chronic continue levothroxine 112 mcg (7) Rheumatoid arthritis: Current visit: No Status: Chronic cont. hydroxychloroquine. she has no acute RA flare at present. (8) Depression: Current visit: No Status: Chronic stable. continue cymbalta (9) Coronary artery disease: Current visit: No Status: Chronic stable. cont. plavix and ASA History of Present Illness Chief Complaint: shortness of breath Narrative: 67-year-old female with a past medical history of COPD, coronary artery disease, diabetes mellitus, chronic anemia presents emergency department with complaints of worsening dyspnea since earlier today. Patient was recently admitted and discharged from [facility] (03/06-03/07/2018) for acute COPD exacerbation w/ bronchitis. She was discharged home on 5 days of Levaquin and prednisone. She had been improving although remained dyspneic even at discharge however she was not requiring oxygen at discharge and she says that as long as she used her nebulizer her dyspnea responded. She now presents w/ cough, worsening dyspnea, hypoxemia (SpO2 90% on RA) and tachypnea (RR 30), and tachycardia (117) and fever 38.7 all which began this afternoon. On CXR AP exam was found to have bibasilar infiltrate and labwork revealed leukocytosis 14 ,700, stable chronic anemia (Hb 9.8 GM), hyponatremia (127) and elevated BUN and creatinine (24 and 1.08) and normal BNP, troponin I, and d-dimer. She had blood cultures drawn in the ER and she was started on Vancomycin 1 gm and Cefepime 2gm for empiric treatment of HCAP. She has responded to repeated DuoNeb treatments and has been given solumedrol 125 mg IVP. She is admitted to ICU for treatment of HCAP. Review of Systems Constitutional Reports as per HPI and Reports fever(s) Eyes Reports system reviewed and no additional complaints, except as docu ENT Reports system reviewed and no additional complaints, except as docu Cardiovascular Reports chest pain at rest (Occurs with coughing) Respiratory Reports as per HPI Gastrointestinal Reports system reviewed and no additional complaints, except as docu Genitourinary Reports system reviewed and no additional complaints, except as docu Musculoskeletal Comments: Chest wall pain with coughing Integumentary/Breasts Reports system reviewed and no additional complaints, except as docu Neurologic Reports system reviewed and no additional complaints, except as docu PFSH Medical History Sarcoidosis (Chronic) Takotsubo cardiomyopathy (Chronic) Depression (Chronic) Rheumatoid arthritis (Chronic) Hypothyroidism (acquired) (Chronic) Anemia (Chronic) Coronary artery disease (Chronic) COPD (chronic obstructive pulmonary disease) (Chronic) Hypertension (Chronic) Diabetes (Chronic) Myocardial infarct (Chronic) Social History household members: family housing: other details: lives w/ her sister in [place], [place] number of children: 2 Smoking/Tobacco Use Status: Current every day tobacco type: cigarettes alcohol intake: current alcohol intake frequency: holidays/special occasions only Alcohol type: wine substance use type: does not use Surgical History H/O tubal ligation (Resolved) History of cholecystectomy (Resolved) History of total knee arthroplasty (Resolved) Hx of cardiac cath (Resolved) S/P appendectomy (Resolved) Meds Home Medications Medication Instructions Recorded Confirmed Type albuterol sulfate [Ventolin HFA] 2 puff INHALATION .Q4HR PRN 02/06/15 03/12/18 History gabapentin 600 mg PO .QHS 02/06/15 03/12/18 History hydroxychloroquine 400 mg PO DAILY 02/06/15 03/12/18 History levothyroxine 112 mcg PO DAILY 02/06/15 03/06/18 History sumatriptan succinate 100 mg PO PRN PRN 02/06/15 03/12/18 History trazodone 100 mg PO .QHS 02/06/15 03/12/18 History ropinirole 0.25 mg PO DIRECTED 12/11/17 03/12/18 History tiotropium bromide [Spiriva with 18 mcg INHALATION DAILY 12/11/17 03/12/18 History HandiHaler] amlodipine 10 mg tablet 10 mg PO DAILY 02/13/18 03/12/18 History aspirin 81 mg chewable tablet 81 mg PO DAILY 02/13/18 03/12/18 History blood-glucose meter kit #1 each 02/13/18 History budesonide-formoterol HFA 160 2 puff IH BID 02/13/18 03/12/18 History mcg-4.5 mcg/actuation aerosol inhaler calcium carbonate 600 mg (1,500 1 tab PO DAILY 02/13/18 03/12/18 History mg)-vitamin D3 200 unit tablet duloxetine 60 mg capsule,delayed 60 mg PO DAILY 02/13/18 03/06/18 History release ferrous gluconate 324 mg (36 mg 324 mg PO DAILY tab 02/13/18 03/12/18 History iron) tablet fluticasone 50 mcg/actuation nasal 1 spray JAKOB DAILY 02/13/18 03/12/18 History spray,suspension gabapentin 300 mg capsule 300 mg PO BID 02/13/18 03/12/18 History lisinopril 5 mg tablet 5 mg PO DAILY 02/13/18 03/12/18 History loratadine 10 mg disintegrating 10 mg PO DAILY 02/13/18 03/12/18 History tablet meclizine 12.5 mg tablet 12.5 mg PO TID PRN 02/13/18 03/12/18 History metformin 500 mg tablet 500 mg PO DAILY tab 02/13/18 03/12/18 History montelukast 10 mg tablet 10 mg PO QPM 02/13/18 03/12/18 History multivitamin tablet 1 tab PO DAILY 02/13/18 03/12/18 History nitroglycerin 0.4 mg sublingual 0.4 mg SL ONCE 02/13/18 03/12/18 History tablet benzonatate [Tessalon Perles] 100 mg PO TID PRN #30 cap 03/07/18 03/12/18 Rx guaifenesin [Mucinex] 600 mg PO Q12H #10 tab 03/07/18 03/12/18 Rx ipratropium-albuterol 3 ml UPD Q6H #100 vial 03/07/18 03/12/18 Rx levofloxacin 500 mg PO DAILY #5 tab 03/07/18 03/12/18 Rx prednisone See Label Instructions .ROUTE 03/07/18 03/12/18 Rx .COMPLEX #12 tab fluticasone 0 g NS DAILY #0 g 03/18/18 Rx gabapentin 300 mg PO BID #0 cap 03/18/18 Rx gabapentin [Neurontin] 600 mg PO HS #0 tab 03/18/18 Rx hydroxychloroquine 400 mg PO DAILY #0 tab 03/18/18 Rx ipratropium-albuterol 3 ml UPD Q4H PRN PRN #0 ml 03/18/18 Rx levothyroxine 100 mcg PO DAILY@0600 #0 tab 03/18/18 Rx melatonin 3 mg PO HS #0 tab 03/18/18 Rx pantoprazole 40 mg PO BID #60 tab 03/18/18 Rx prednisone See Label Instructions .ROUTE 03/18/18 Rx .COMPLEX #20 tab ropinirole 0.25 mg PO HS #0 tab 03/18/18 Rx sucralfate 1 g PO AC & HS #120 tab 03/18/18 Rx tiotropium bromide [Spiriva with 1 cap INHALATION DAILY #0 inh 03/18/18 Rx HandiHaler] trazodone 100 mg PO HS #0 tab 03/18/18 Rx varenicline [Chantix Starting 1 dose pk PO DAILY #1 dose pk 03/18/18 Rx Month Box] Allergies Allergy/AdvReac Type Severity Reaction Status Date / Time ampicillin AdvReac Mild stuffy/feve Unverified 03/12/18 21:24 r clindamycin AdvReac Mild stuffy/feve Unverified 03/12/18 21:24 r Penicillins AdvReac Mild stuffy/feve Unverified 03/12/18 21:24 r Sulfa (Sulfonamide AdvReac Mild stuffy/feve Unverified 03/12/18 21:24 Antibiotics) r tramadol AdvReac Mild stuffy/feve Unverified 03/12/18 21:[address] contrast Allergy Unknown pt not Uncoded 03/12/18 21:24 sure of allergy Exam Const General: cooperative, no acute distress, well developed and ill appearing acutely Nutritional Appearance: overweight Orientation: alert, awake and oriented x3 HENMT Head: normal to inspection Ears: hearing grossly normal bilaterally General nose exam: external nose normal and nares normal Face and sinus: normal facial exam Eyes General: appearance normal, both eyes and all related structures Alignment and Position: alignment normal Periorbital: periorbital findings normal Eyelids: eyelids normal Conjunctivae: conjunctivae normal Sclera: sclerae normal Cornea: corneas normal Pupils: PERRL, normal by confrontation and accommodation normal EOM: EOM intact bilaterally Neck Neck: normal visual inspection, full ROM, no lymphadenopathy, no meningeal signs , trachea midline and supple Thyroid: thyroid normal Carotids: normal carotid upstroke Lymphatic: no lymphadenopathy noted Resp Effort & Inspection: normal respiratory effort Auscultation: rhonchi lower bilaterally and wheezes expiratory wheezes and scattered wheezes Cardio Jugular venous pressure: no JVD Palpation: normal PMI Rate: regular rate Rhythm: regular rhythm Heart Sounds: S1 normal, S2 normal and normal, physiologic split S2 Bruits: no carotid bruits Pulses: normal peripheral pulses GI Inspection: normal to inspection Palpation: soft and no hepatosplenomegaly Percussion: normal to percussion Back/Spine/Pelvis Back: no CVA tenderness Thoracic/Lumbar Spine: thoracic and lumbar spine normal to inspection Skin General skin exam: no rashes or lesions noted Neuro General: alert, awake, oriented x3, moves all extremities, normal light touch, pain and propioception and no focal motor deficits Cognition: normal cognition Speech: speech normal Motor: muscle tone normal throughout, strength 5/5 throughout and no movement abnormalities noted Sensory Exam: no sensory deficits noted Extrem General: normal to inspection, full ROM, normal capillary refill, no joint enlargement, no clubbing, cyanosis or edema and no calf tenderness Psych Appearance: disheveled Mental Status: mental status grossly normal Speech and Movement: speech and movement normal Mood: congruent mood Affect: normal affect Attitude: cooperative Thought Process: normal Thought Content: normal Insight: insight good Judgment: judgment good Results Imaging Chest x-ray: report reviewed (small amount of airspace disease in the lung bases could represent pnemonias or post inflammatory change from aspiration) and image reviewed (bibasilar alveolar infiltrates R>L) EKG: image reviewed ( sinus tachycardia at [address]-T abnormalities in I, avL, V6) Labs : 03/18/18 06:50 03/18/18 06:50 Laboratory Results - last 24 hr 03/12/18 03/12/18 03/12/18 21:18 21:18 21:18 WBC RBC Hgb Hct MCV MCH MCHC RDW Plt Count MPV Immature Gran % Neutrophils % Lymphocytes % Monocytes % Eosinophils % Basophils % Absolute Neutrophils Absolute Lymphocytes Absolute Monocytes Absolute Eosinophils Absolute Basophils Differential Comment RBC Morphology D-Dimer 273 Sodium 127 L Potassium 4.2 Chloride 91 L Carbon Dioxide 27.5 Anion Gap 8.5 BUN 24 H Creatinine 1.08 H Estimated GFR/1.73 m2 50.60 Glucose 169 H Lactate Calcium 8.7 Total Bilirubin 0.4 AST 20 ALT 28 Alkaline Phosphatase 66 Troponin I < 0.02 NT-Pro-B Natriuret Pep 132 Total Protein 7.2 Albumin 3.8 03/12/18 03/12/18 21:18 22:35 WBC 14.77 H RBC 3.26 L Hgb 9.8 L Hct 28.2 L MCV 86.5 MCH 30.1 MCHC 34.8 RDW 12.2 Plt Count 344 D MPV 8.7 Immature Gran % 0.0 Neutrophils % 86.0 Lymphocytes % 12.0 Monocytes % 2.0 Eosinophils % 0.0 Basophils % 0.0 Absolute Neutrophils 12.70 H Absolute Lymphocytes 1.77 Absolute Monocytes 0.30 Absolute Eosinophils 0.00 Absolute Basophils 0.00 Differential Comment Manual differential RBC Morphology Normal D-Dimer Sodium Potassium Chloride Carbon Dioxide Anion Gap BUN Creatinine Estimated GFR/1.73 m2 Glucose Lactate 1.2 Calcium Total Bilirubin AST ALT Alkaline Phosphatase Troponin I NT-Pro-B Natriuret Pep Total Protein Albumin Last Vital Signs Temp 38.7 C H 03/12/18 21:14 Pulse 117 H 03/12/18 21:14 Resp 30 H 03/12/18 21:14 BP 167/82 H 03/12/18 21:14 Pulse Ox 90 L 03/12/18 21:14
[2018-03-13] VITALS (58 sets, daily range): BP systolic 104–153; BP diastolic 52–117; PULSE 71–113; RESP 4–28; TEMP 36.8–37.2; O2SAT 90–98
[2018-03-13] MEDS: Albuterol/Ipratropium 3 ML UPD VIAL UPD ×6 (00:11→23:39)
[2018-03-13] MEDS: VANCOMYCIN 1,500 MG in Normal Saline 500 ML 333.3333 MG IVPB (00:11)
[2018-03-13] MEDS: Enoxaparin 40 MG/0.4 ML SYR SC ×2 (00:17→21:27)
[2018-03-13] MEDS: Lactated Ringers 1,000 ML 100 ML IV ×2 (00:18→14:54)
[2018-03-13] MEDS: guaiFENesin 600 MG TABCR PO ×3 (00:46→23:42)
[2018-03-13] MEDS: Benzonatate 100 MG CAP PO ×2 (00:46→21:33)
[2018-03-13] MEDS: rOPINIRole 0.5 MG TAB 0.25 MG PO ×2 (00:47→21:27)
[2018-03-13] MEDS: Normal Saline Flush 10 ML SYR (00:49)
[2018-03-13] MEDS: Gabapentin 600 MG TAB PO ×2 (00:53→21:27)
[2018-03-13] MEDS: Levothyroxine 112 MCG TAB PO (05:13)
[2018-03-13] MEDS: CEFEPIME 2 GM in Normal Saline 100 ML IVPB ×2 (05:43→17:32)
[2018-03-13 07:14] LABS: Anion Gap 8.1 mmol/L (3-11); BUN 21 mg/dL (7-18); CO2 25.9 mmol/L (21.0-32.0); CREATININE 1.06 mg/dL (0.55-1.02); Calcium 8.2 mg/dL (8.5-10.1); Chloride 93 mmol/L (98-107); Estimated GFR 51.71 (mL/min/1.73m2); Glucose 230 mg/dL (70-100); Potassium 4.6 mmol/L (3.5-5.1); Sodium 127 mmol/L (136-145)
[2018-03-13 07:21] LABS: Abs Immature Grans 0.09 k/cumm (0.0-0.09); Absolute Basophil Count 0.01 k/cumm (0.0-0.2); Absolute Eosinophil Count 0.01 k/cumm (0.0-0.7); Absolute Neutrophil Count 12.72 k/cumm (1.2-6.7); Basophils % 0.1; Eosinophils % 0.1; HCT 25.2 % (36.0-46.0); HGB 8.4 g/dL (12.0-15.5); Immature Grans % 0.6; Lymphocytes % 7.2; Mean Corp. HGB Concentration 33.3 g/dL (32.0-36.0); Mean Corpuscular Hemoglobin 29.6 pg (27.0-33.0); Mean Corpuscular Volume 88.7 fL (80-95); Mean Platelet Volume 9.3 fL (8.0-11.0); Monocytes % 3.5; Neutrophils % 88.5; Platelet Count 272 x1000/uL (130-400); RBC 2.84 m/cumm (4.00-5.20); RBC Distribution Width 12.1 % (11.7-14.6); White Blood Cell Count 14.37 k/cumm (4.4-10.8)
[2018-03-13 07:26] LABS: Absolute Lymphocyte Count 1.03 k/cumm (1.2-3.4)
[2018-03-13] MEDS: Budesonide/Formoterol 160/4.5 6 GM 60 PUFF INH IH ×2 (07:49→19:47)
[2018-03-13] MEDS: Albuterol 2.5 MG/3 ML INH SOLN VIAL UPD (07:50)
[2018-03-13] MEDS: methylPREDNISolone SUCC 125 MG VIAL 80 MG IVP ×3 (08:33→23:40)
[2018-03-13] MEDS: Insulin Aspart 300 UNITS/3 ML PEN SC ×3 (08:33→17:16)
[2018-03-13] MEDS: Lisinopril 5 MG TAB PO (08:33)
[2018-03-13] MEDS: amLODIPine 10 MG TAB PO (08:33)
[2018-03-13] MEDS: Aspirin 81 MG CHEW PO (08:33)
[2018-03-13] MEDS: Gabapentin 300 MG CAP PO ×2 (08:33→19:47)
[2018-03-13] MEDS: Loratidine 10 MG TAB PO (08:34)
[2018-03-13] MEDS: Beta-Carotene(A) w/C,E, & Minerals TAB 1 TAB PO (08:34)
[2018-03-13] MEDS: Clopidogrel 75 MG TAB PO (08:34)
[2018-03-13] MEDS: Calcium 600mg/Vit D 200U TAB 1 TAB PO (08:34)
[2018-03-13] MEDS: Multivitamin TAB 1 TAB PO (08:34)
[2018-03-13] MEDS: Hydroxychloroquine 200 MG TAB 400 MG PO (08:34)
[2018-03-13] MEDS: Ferrous Gluconate 324 MG TAB PO (08:34)
[2018-03-13] MEDS: Pantoprazole 40 MG TABCR PO (08:34)
[2018-03-13] MEDS: DULoxetine 30 MG CAP 60 MG PO (08:35)
[2018-03-13] MEDS: Fluticasone NASAL SPRAY 16 GM BTL NS (08:35)
--- NOTE | 2018-03-13 08:47 | PHARADMIT ---
Addendum entered by Gary Fragoso III 03/17/18 12:19: Pharmacy Note Subjective Patient treated for HCAP. Objective VS-OK HR-80 Na-126 WBC-14.63 H&H-7.9/22.9 BG-200 FSBS-298 Wgt-90.4 kg Last BM-03/14 Assessment Vancomycin trough 15.4, continue Vancomycin & Cefepime Day 5. watch for Prednisone tapering, Plan MD to continue IV ABX to completion of HCAP therapy Original Note: Addendum entered by Blanca Dykes 03/15/18 14:30: Pharmacy Note Subjective speech consult this morning, pt had heme positive stool per morning report Objective HR-95 no BP, other VS okay weight-93.1(up) WBC-13.95(down) FSBG-264 h/h-8.2/24.0 Assessment vanco and cefepime continue, blood cultures no growth at 48 hours, vanco trough came back at 14.3 but the previous dose had been given a bit early, kinetics suggested maintaining 1000 mg Q12H melatonin ordered, enoxaparin discontinued, methylprednisolone changed to prednisone Plan continue to follow vanco and watch for possible change in abx therapy Original Note: Addendum entered by Blanca Dykes 03/14/18 17:12: Pharmacy Note Subjective ECHO today Objective BP-128/59 HR-101 Na-128 WBC-15.68(up) FSBG-329 Assessment vanco and cefepime continue; blood cultures no growth at 24hours guaifenesin ordered BID PRN methylprednisolone dose changed from 80 mg Q8H to 40 mg Q12H pantoprazole changed from daily to bid Plan vanco trough scheduled for tomorrow at 1100 Original Note: Admission Pharmacy Clinical Review HCAP Code Status Full Code Current Weight Wgt- 90.8 kg Renally Cleared and Narrow Therapeutic Index Meds CrCl~ 46.3 mL/min Meds-OK QTc Value / Action Taken QTc-421 na BP Control, Fever BP- 130/62 Tmax- 37.6C Electrolytes reviewed Na- 127 K+4.6 DVT Prophylaxis Lovenox-40mg, Plavix, ASA Opiate Usage / Scheduled Bowel Regimen Ordered No Yes Plt/SCr for Heparin / Enoxaparin Plts-272 SCr-1.06 INR for Warfarin NA H/H stable, WBC/Bands H&H-8.4/25.2 WBC- 14.37 Antibiotic appropriateness Cefepime,Vancomycin Cultures and Sensitivities Blood-Pending, Flu-negative Surgical ABX d/c within 24 hr na DM control / Insulin Dosing BG- 230 Aspart Heart Failure (Check EF%) (SADIA's, B-Block, Diuretics) Norvasc, Lisinopril, NTG, IV to PO Switch No Home Meds Reviewed Yes Home Meds Not Ordered Levaquin, Metformin, Prednisone Comments
--- NOTE | 2018-03-13 10:55 | PDOC.CMIN ---
- If Service Date Differs Date of service: 03/13/18 Time of Service: 10:55 Care Management Initial Assess REASON FOR HOSPITALIZATION:: HCAP PAST MEDICAL HISTORY/PAST SURGICAL HISTORY:: COPD, coronary artery disease, depression, diabetes, hypertension, AR, hypothyroidism, RA. Surgical hx: Tubal ligation, choecystectomy, total TKA, cardiac cath, appendectomy. PREVIOUS FUNCTIONAL STATUS/SOCIAL/FAMILY SUPPORTS:: Deborah resides in [place] with her sister, Imani, Imani's daughter and her fiance. Deborah has three adult children; two boys who reside in [place] and a daughter, in [place] who she has been estranged from for two years. Imani has been and x2 and had a 20 year relationship with a man who in May 16. At that time she moved from [place], to her son's in [place], and then her sister's in [place]. Deborah is independent with her ADLs and relies on her sister and niece for transportation. She has a walker and cane at home for use ambulating, She states she has used her walker more lately. CURRENT FUNCTIONAL STATUS:: Deborah is sitting up in the chair and is engaged with CM during assessment. Deborah states she was able to complete her antibiotics and steroids at home after last discharge. She feels that she may not have been ready to go home when she was discharged however wanted to get home to her dog. She denies any difficulty obtaining medications ADVANCE DIRECTIVES:: None on file, she would like to complete, CM offered to assist. Has patient been provided with information about the portal?: Yes Did the patient sign up for the portal?: No CODE STATUS:: Full Code INSURANCE COVERAGE / FINANCIAL ISSUES:: Medicaid, Medicare CURRENT HOME/COMMUNITY SERVICES/EQUIPMENT:: Walker, cane. PRIMARY CARE PHYSICIAN:: Claire Wood APRN, [facility] POTENTIAL DISCHARGE NEEDS:: Follow-up appointment with primary care scheduled prior to discharge. CM canceled Deborah's annual appointment scheduled on 03/14/2018 due to inpaitent admission. PATIENT/FAMILY EDUCATION NEEDS:: Discharge education, limitations, follow-up plan of care, ask me 3 discussion, self-management. ANTICIPATED BARRIERS TO DISCHARGE:: None identified at this time TRANSPORTATION:: Via private car with family. PLAN:: Deborah, is currently receiving care in the ICU including IV antibiotics and steroids. Deborah will be discharged home when medically stable. CM to continue to provide support to patient, family, care team, discharge planning and disposition. Readmission - Within the Past 30 Days Yes or No: Y - Date of First Admission Date of 1st Admission: 03/06/18 - Date of this Admission Date of Admission: 03/12/18 This admission was: Through ED - Office Visit Since 1st Admission Have you seen your PCP in the office since discharge?: No Had an appointment Been Scheduled?: Yes Date of Scheduled Appointment: 03/14/18 Describe barriers for scheduling or getting an appointment: None - I. Interview patient and/or Family Difficulty reaching your doctor or getting an office appt?: No Have you had trouble purchasing/ or taking medication?: No Have you had trouble with getting meals at home?: No Did you feel ready for discharge when you left the last time: No (I wanted to go home to see my dog) Why did you not feel ready for discharge?: I continued to have difficulty with my breathing at time of discharge. Were services received that you thought were set up on disch: No Why weren't services received?: Not ordered at the time of discharge If patient did not receive services, were there orders at: No Did you call your physician beore you came to the ED?: No Did your physician tell you to come in?: No How do you think you became sick enough to come back?: I do not feel that I was ready to go home at time of discharge. I wanted to go home to be with my dog. I was able to take my medications and there was no barriers to my medications. - Assessment for Readmission Summary of readmission circumstances, based upon interviews: Deborah was admitted over 24 hours and was discharged. Several members of the family have been ill. Deborah continues to use tobacco and continued upon last discharged. She was readmitted with health care acquired pneumonia. She responded quickly last admission to steroid treatment and was sent home on a steroid taper. She denies difficulty obtaining medications and states she took them as directed. At time of her last discharge her sa02 96% her sputum was positive for strep pneumonia and she was receiving abx at time of discharge. No appointment was scheduled for patient at the time of discharge however she was scheduled already for her annual with her primary care for the following week. Undetermined if this was an avoidable readmission patient continues to use tobacco in the setting of COPD.
[2018-03-13] MEDS: VANCOMYCIN 1,000 MG in Normal Saline 250 ML 166.667 MG IVPB ×2 (12:11→23:52)
--- NOTE | 2018-03-13 14:30 | W.PM.PROGNOT ---
Date of Service Date of service: 03/13/18 Time of Service: 14:30 Assessment and Plan (1) HCAP (healthcare-associated pneumonia): Current visit: Yes Status: Acute Potential infiltrate by CXR during recent hospitalization, with sputum cultures growing Strep Pneumoniae - treated with five days of Levofloxacin and steroid therapy, now with worsening infiltrates, fevers, leukocytosis, and hypoxia. Continue treatment with HCAP coverage, Day #1 of Vancomycin and Cefepime, and monitor Blood Cultures. Will repeat Sputum Cultures as well. Also appears to have concurrent COPD exacerbation, currently under treatment with IV steroids and frequent Nebs. Continue supplemental Oxygen, antitussive medications. (2) COPD (chronic obstructive pulmonary disease): Current visit: Yes Status: Chronic With current acute exacerbation. Continue treatment with IV Steroids, nebs as above. On antibiotic therapy for Pneumonia as well. (3) Diabetes: Current visit: Yes Status: Chronic Hold Metformin. Continue ISS and monitor blood sugar. (4) Takotsubo cardiomyopathy: Current visit: Yes Status: Chronic Reported prior history per discussion with patient's Neurologist who has access to PCP records. Check ECHO to evaluate LVEF. (5) Sarcoidosis: Current visit: Yes Status: Chronic Again as per discussion with outpatient neurology - Unsure if patient has a history of documented biopsy proven Sarcoidosis, or if disease is currently in remission. Start with CT of the chest and request of prior records. (6) Rheumatoid arthritis: Current visit: Yes Status: Chronic Currently on Hydroxychloroquine. (7) Hypothyroidism (acquired): Current visit: Yes Status: Chronic Continue thyroid replacement therapy. (8) Anemia: Current visit: Yes Status: Chronic Unsure of etiology - Iron studies checked last visit with low iron, low normal TIBC and ferritin. Unsure if patient's anemia is multifactorial in etiology, and currently worse in setting of acute illness. Check Vitamin B12 and FA. History of hypothyroidism on replacement therapy without any recent TSH values at this institution - despite acute illness will check a TSH as well. Continue oral iron supplement. Monitor hemoglobin, blood pressure closely. (9) Coronary artery disease: Current visit: No Status: Chronic Appears quiescent. Currently on DAPT with ASA and Plavix. Does not appear to be on BB or statin therapy. (10) DVT prophylaxis: Current visit: Yes Status: Acute SC Lovenox. (11) Advance directive discussed with patient: Current visit: Yes Status: Deleted Full Code. Subjective Interval history since last seen: 67-year-old woman with a prior medical history of COPD, CAD, DM, and chronic anemia, admitted from [facility] emergency department on 03/12/2018 with a diagnosis of Pneumonia. Mrs. Ybarra initially presented to the hospital and was admitted and discharged from [facility] (03/06-03/07/2018) for acute COPD exacerbation w/ bronchitis. Her CXR showed potential infiltrates as well. She was discharged home on 5 days of Levaquin and prednisone, and review of her laboratory data reveals presence of Strep Pneumo on sputum cultures. She had been improving although remained dyspneic even at rest, although not requiring oxygen at time of her discharge. She presented back to the emergency room with a reported cough, worsening dyspnea, and noted hypoxia, along with tachypnea, tachycardia, and fever 38.7 . Repeat imaging with a CXR showe bibasilar infiltrate and labwork revealed evidence of a leukocytosis. She was referred for admission, and placed in the ICU for treatment of Pneumonia that failed Levofloxacin. This morning the patient reports some overall improvement in symptoms. She has remained afebrile since the time of admission. No overnight events reported. Exam Narrative Exam Narrative: General: Patient appears acutely ill but not toxic, AAOX3 Neck: Supple CV: Regular, nontachycardic at time of exam, S1S2, No rubs, murmurs, or gallops. Pulmonary: Bibasilar crackles and rhonchi, with diffuse wheezing. Abdomen: + Bowel Sounds, soft, nontender, nondistended Vascular: No lower extremity edema Neurologic: CN II-XII grossly intact. No focal deficits. Psych: Normal mood and affect. Objective Objective Clinical Data: Abnormal lab results 03/12/18 03/12/18 03/13/18 Range/Units 21:18 21:18 06:28 WBC 14.77 H (4.4-10.8) k/cumm RBC 3.26 L (4.00-5.20) m/cumm Hgb 9.8 L (12.0-15.5) g/dL Hct 28.2 L (36.0-46.0) % Absolute Neutrophils 12.70 H (1.2-6.7) k/cumm Absolute Lymphocytes (1.2-3.4) k/cumm Sodium 127 L 127 L (136-145) mmol/L Chloride 91 L 93 L (98-107) mmol/L BUN 24 H 21 H (7-18) mg/dL Creatinine 1.08 H 1.06 H (0.55-1.02) mg/dL Glucose 169 H 230 H (70-100) mg/dL Calcium 8.2 L (8.5-10.1) mg/dL 03/13/18 Range/Units 06:28 WBC 14.37 H (4.4-10.8) k/cumm RBC 2.84 L (4.00-5.20) m/cumm Hgb 8.4 L (12.0-15.5) g/dL Hct 25.2 L (36.0-46.0) % Absolute Neutrophils 12.72 H (1.2-6.7) k/cumm Absolute Lymphocytes 1.03 L (1.2-3.4) k/cumm Sodium (136-145) mmol/L Chloride (98-107) mmol/L BUN (7-18) mg/dL Creatinine (0.55-1.02) mg/dL Glucose (70-100) mg/dL Calcium (8.5-10.1) mg/dL Vital Signs Temperature 37.0 C 03/13/18 12:17 Temperature Source Temporal Artery Scan 03/13/18 12:17 Pulse 88 03/13/18 12:12 Pulse 94 H 03/13/18 12:12 Respiratory Rate 23 03/13/18 12:12 Respiratory Effort 03/13/18 12:17 Respiratory Depth Normal 03/13/18 12:17 Respiratory Pattern Normal 03/13/18 12:17 Blood Pressure 128/65 03/13/18 12:12 Blood Pressure Mean 81 03/13/18 12:12 Blood Pressure Position Supine 03/13/18 03:42 Pulse Oximetry 96 03/13/18 12:17 Oxygen Delivery Method Nasal Cannula 03/13/18 12:17 Oxygen Flow Rate 2 03/13/18 12:17 Pain Level 0 03/13/18 12:17 Intake & Output 03/12/18 03/13/18 03/13/18 23:59 11:59 23:59 Intake Total 2851.667 / 2851.667 1038.333 / 1038.333 Output Total 1050 / 1050 400 / 400 Balance 1801.667 / 1801.667 638.333 / 638.333 Weight 91 kg 90.8 kg Intake: IV 2161.667 / 2161.667 678.333 / 678.333 Oral 690 / 690 360 / 360 Output: Urine 1050 / 1050 400 / 400 Other: Urine Color Yellow Yellow Urine Appearance Clear Clear Urine Odor None None Comment Patient up to void to BSC x 2 since last assessment. Urine dip pH 6, SG 1.015. Voiding Methods Bedside Commode Bedside Commode Laboratory Results WBC 14.37 k/cumm (4.4-10.8) H 03/13/18 06:28 RBC 2.84 m/cumm (4.00-5.20) L 03/13/18 06:28 Hgb 8.4 g/dL (12.0-15.5) L 03/13/18 06:28 Hct 25.2 % (36.0-46.0) L 03/13/18 06:28 MCV 88.7 fL (80-95) 03/13/18 06:28 MCH 29.6 pg (27.0-33.0) 03/13/18 06:28 MCHC 33.3 g/dL (32.0-36.0) 03/13/18 06:28 RDW 12.1 % (11.7-14.6) 03/13/18 06:28 Plt Count 272 x1000/uL (130-400) 03/13/18 06:28 MPV 9.3 fL (8.0-11.0) 03/13/18 06:28 Immature Gran % 0.6 03/13/18 06:28 Neutrophils % 88.5 03/13/18 06:28 Lymphocytes % 7.2 03/13/18 06:28 Monocytes % 3.5 03/13/18 06:28 Eosinophils % 0.1 03/13/18 06:28 Basophils % 0.1 03/13/18 06:28 Absolute Neutrophils 12.72 k/cumm (1.2-6.7) H 03/13/18 06:28 Absolute Lymphocytes 1.03 k/cumm (1.2-3.4) L 03/13/18 06:28 Absolute Monocytes 0.50 k/cumm (0.11-0.7) 03/13/18 06:28 Absolute Eosinophils 0.01 k/cumm (0.0-0.7) 03/13/18 06:28 Absolute Basophils 0.01 k/cumm (0.0-0.2) 03/13/18 06:28 Differential Comment Manual differential 03/12/18 21:18 RBC Morphology Normal 03/12/18 21:18 D-Dimer 273 ng/mlFEU (<500) 03/12/18 21:18 Sodium 127 mmol/L (136-145) L 03/13/18 06:28 Potassium 4.6 mmol/L (3.5-5.1) 03/13/18 06:28 Chloride 93 mmol/L (98-107) L 03/13/18 06:28 Carbon Dioxide 25.9 mmol/L (21.0-32.0) 03/13/18 06:28 Anion Gap 8.1 mmol/L (3-11) 03/13/18 06:28 BUN 21 mg/dL (7-18) H 03/13/18 06:28 Creatinine 1.06 mg/dL (0.55-1.02) H 03/13/18 06:28 Estimated GFR/1.73 m2 51.71 (mL/min/1.73m2) 03/13/18 06:28 Glucose 230 mg/dL (70-100) H 03/13/18 06:28 Lactate 1.2 mmol/L (0.6-1.4) 03/12/18 22:35 Calcium 8.2 mg/dL (8.5-10.1) L 03/13/18 06:28 Total Bilirubin 0.4 mg/dL (0.2-1.0) 03/12/18 21:18 AST 20 U/L (15-37) 03/12/18 21:18 ALT 28 U/L (12-78) 03/12/18 21:18 Alkaline Phosphatase 66 U/L (46-116) 03/12/18 21:18 Troponin I < 0.02 ng/mL (0.00-0.06) 03/12/18 21:18 NT-Pro-B Natriuret Pep 132 pg/mL (-299) 03/12/18 21:18 Total Protein 7.2 g/dL (6.4-8.2) 03/12/18 21:18 Albumin 3.8 g/dL (3.4-5.0) 03/12/18 21:18 Rapid Influenza A & B Final 03/12/18-2212 RESULT NEGATIVE FOR FLU A AND B ANTIGENS. Studies Exam(s) a RAD:XR portable chest AP SYMPTOM/DIAGNOSIS: SOB PORTABLE AP CHEST: 03/12/18 The heart is not enlarged. There are patchy areas of increased intrapulmonary radiodensity in the lung bases,more prominent than on previous examination of 03/06/18, raising the possibility of acute pneumonia, aspiration pneumonia not excluded. Upper lung zones appear generally clear. No gross pleural effusion identified on this frontal film. CONCLUSION: Findings suggesting interval development of bibasilar pneumonia.
--- NOTE | 2018-03-13 15:02 | CHAPLAIN ---
Deborah was resting in bed when I visited. She easily engaged in conversation and told me about being here last week, and leaving earlier than she believes now that she should have, because she wanted to get home to her dog. Deborah said she lives with her sister and niece and between them they have 12 dogs. Someone also lives in a camper on the property, but it wasn't clear who that was. Deborah seems to be comfortable being here and wants to stay this time until she is feeling better.
--- NOTE | 2018-03-13 15:30 | DM INPTCON_ITS ---
DESCRIPTION/ASSESSMENT: Appreciate diabetes consult for Deborah Ybarra who is hospitalized with Pneumonia taking 80mg Methylprednisolone q 8 hours. No available A1c BMI 33 During this hospitalization she receives insulin correction at the sensitive level with blood sugars 220-247. She manages her blood sugars at home with Metformin 500mg daily. She states her blood sugars are at goal at home. Between hospitalizations she states they were acceptable with one exception in the 200s. Deborah states she eats what and when she wants at home watching how much bread, pasta and potato. She drinks sugared vitamin water and iced tea during the day. INTERVENTION: Discussed carbohydrate sources with Deborah and the possibility of decreasing sugared beverages. For glycemic management suggest increasing insulin. Could increase insulin correction to moderate, however it does not take care of steroid administration covering the night. NPH or Detemir may be offered twice daily as long as steroid dose change is not anticipated. Suggest dosing at .4 x weight in KG (90 ) = 36units over 24 hours in a split dose. May start at a dose lower than suggested for safety at 10 units twice daily. PLAN: Will follow blood sugars
[2018-03-13 16:57] LABS: TSH 0.49 uIU/mL (0.358-3.74); Vitamin B12 691 pg/mL (193-986)
[2018-03-13 16:59] LABS: Folate > 20.0 ng/mL (8.6-20.0)
--- NOTE | 2018-03-13 18:46 | DI.CT_ITS ---
SYMPTOM/DIAGNOSIS: PNEUMONIA, HYPOXIA CHEST CT: CT scan of the chest was performed without intravenous contrast material. There is patient motion artifact which does limit the examination. Comparison chest xray is 03/12/18. There is atherosclerosis of the thoracic aorta but no aneurysmal dilatation. Heart size is within normal limits. No significant pericardial effusion is seen. Coronary artery calcifications are present. There is no significant mediastinal or hilar adenopathy present on this noncontrast examination. No pleural effusion or pneumothorax is identified. Multi focal ground glass opacities are present throughout the lungs with a focal area of consolidation seen in the right middle lobe. The tracheobronchial tree is unremarkable. Upper abdominal images show the patient is status post cholecystectomy. Degenerative changes are present throughout the spine. IMPRESSION: Multi focal ground glass opacities throughout the lungs suspicious for multi focal pneumonia.
[2018-03-13] MEDS: Montelukast 10 MG TAB PO (19:47)
--- NOTE | 2018-03-13 19:58 | DI.VRAD_ITS ---
EXAM: CT Chest Without Contrast EXAM DATE/TIME: 03/13/2018 3:01 PM CLINICAL HISTORY: 67 years old, female; Signs and symptoms; Other: Pneumonia, hypoxia; Additional info: PT had difficulty holding breath. Scan repeated due to motion. TECHNIQUE: Axial computed tomography images of the chest without intravenous contrast. All CT scans at this facility use at least one of these dose optimization techniques: automated exposure control; mA and/or kV adjustment per patient size (includes targeted exams where dose is matched to clinical indication); or iterative reconstruction. Coronal and sagittal reformatted images were created and reviewed. COMPARISON: SC XR PORTABLE CHEST AP 03/12/2018 10:01 PM FINDINGS: Lungs: Multifocal patchy groundglass opacities throughout the lungs. Pleural space: No pleural effusion or pneumothorax. Heart: Mild calcifications of the coronary arteries. Aorta: Mild atherosclerotic calcifications of the aorta. Lymph nodes: No enlarged lymph nodes. Bones/joints: Multilevel degenerative changes of the visualized spine. Soft tissues: Unremarkable. Gallbladder and bile ducts: The gallbladder is surgically absent. Other findings: Examination is limited by motion artifact. IMPRESSION: 1. Multifocal patchy groundglass opacities throughout the lungs, which could reflect multifocal pneumonia. 2. Other chronic findings, as above. Dictated and Authenticated by: Bhavik Vasquez MD. Ordering:ROSANNE SINGLETARY MD
[2018-03-14] VITALS (35 sets, daily range): BP systolic 128–147; BP diastolic 59–90; PULSE 91–114; RESP 2–28; TEMP 36.3–37.1; O2SAT 90–100
[2018-03-14] MEDS: Benzonatate 100 MG CAP PO ×2 (01:55→23:19)
[2018-03-14] MEDS: Lactated Ringers 1,000 ML 100 ML IV (03:35)
[2018-03-14] MEDS: CEFEPIME 2 GM in Normal Saline 100 ML IVPB ×2 (06:06→17:54)
[2018-03-14] MEDS: Levothyroxine 112 MCG TAB PO (06:07)
[2018-03-14] MEDS: Albuterol/Ipratropium 3 ML UPD VIAL UPD ×5 (06:07→23:19)
[2018-03-14 07:22] LABS: Abs Immature Grans 0.39 k/cumm (0.0-0.09); Absolute Lymphocyte Count 1.22 k/cumm (1.2-3.4); Absolute Monocyte Count 0.56 k/cumm (0.11-0.7); Basophils % 0.1; HCT 24.4 % (36.0-46.0); Immature Grans % 2.5; Lymphocytes % 7.8; Mean Corp. HGB Concentration 32.8 g/dL (32.0-36.0); Mean Corpuscular Volume 88.4 fL (80-95); Mean Platelet Volume 9.4 fL (8.0-11.0); Monocytes % 3.6; Platelet Count 292 x1000/uL (130-400); RBC 2.76 m/cumm (4.00-5.20); White Blood Cell Count 15.68 k/cumm (4.4-10.8)
[2018-03-14 07:40] LABS: Anion Gap 7.9 mmol/L (3-11); BUN 17 mg/dL (7-18); CO2 26.1 mmol/L (21.0-32.0); Calcium 8.6 mg/dL (8.5-10.1); Chloride 94 mmol/L (98-107); Glucose 207 mg/dL (70-100); Potassium 4.4 mmol/L (3.5-5.1); Sodium 128 mmol/L (136-145)
[2018-03-14 07:44] LABS: Absolute Basophil Count 0.02 k/cumm (0.0-0.2); Absolute Neutrophil Count 13.48 k/cumm (1.2-6.7)
[2018-03-14 07:49] LABS: Diff Comment Agrees w/ Instrument; RBC Morphology Normal
--- NOTE | 2018-03-14 08:30 | MERGE_ITS ---
*[facility]* *[facility]* [address] [place] [address] Date of study: 03/14/2018 Transthoracic Echocardiography M-mode, complete 2D, complete spectral Doppler, and color Doppler *STUDY CONCLUSIONS* Summary: 1. Procedure narrative: Image quality was fair. 2. Left ventricle: The cavity size was normal. Wall thickness was normal. Systolic function was normal. The estimated ejection fraction was 55-60%. Although no diagnostic regional wall motion abnormality was identified, this possibility cannot be completely excluded on the basis of this study. 3. Aortic valve: There was very mild stenosis. Peak velocity (S): 2.2m/sec. Mean gradient (S): 12mm Hg. Valve area (VTI): 1.9cm^2. 4. Left atrium: The atrium was mildly dilated. 5. Right ventricle: The cavity size was normal. Wall thickness was normal. Systolic function was normal. *PATIENT PRESENTATION* Height: 165.1cm ((65in) ) S/D Pressure: 145 / 74 Weight: 90.7kg ((199.6lb) ) BSA: 2.07m^2 PERFORMING Unknown ORDERING Frandy Tamayo REFERRING Frandy Tamayo PERFORMING [facility] [employer] DIRECTOR Shanna Toledo *PROCEDURE DATA* Procedure information: This study was interpreted by [facility]. Pertinent images and digital data are archived for permanent storage and are available for subsequent review. No prior study was available for comparison. Study status: Routine. Transthoracic echocardiography. M-mode, complete 2D, complete spectral Doppler, and color Doppler. A Transthoracic Echocardiogram was performed. Scanning was performed from the parasternal, apical, subcostal, and suprasternal notch acoustic windows. Images were obtained using an [employer] 2000 cardiac ultrasound machine. Image quality was fair. Study completion: The patient tolerated the procedure well. There were no complications. History: PMH: Takotsubo cardiomyopathy *CARDIAC ANATOMY* Left ventricle: The cavity size was normal. Wall thickness was normal. Systolic function was normal. The estimated ejection fraction was 55-60%. Although no diagnostic regional wall motion abnormality was identified, this possibility cannot be completely excluded on the basis of this study. Diastolic parameters were normal. Aortic valve: Poorly visualized. Doppler: There was very mild stenosis. There was no significant regurgitation. VTI ratio of LVOT to aortic valve: 0.61. Valve area (VTI): 1.9cm^2. Indexed valve area (VTI): 0.9cm^2/m^2. Peak velocity ratio of LVOT to aortic valve: 0.65. Valve area (Vmax): 2.1cm^2. Indexed valve area (Vmax): 1cm^2/m^2. Mean velocity ratio of LVOT to aortic valve: 0.64. Valve area (Vmean): 2cm^2. Indexed valve area (Vmean): 1cm^2/m^2. Mean gradient (S): 12mm Hg. Peak gradient (S): 19.4mm Hg. Aorta: Aortic root: The aortic root was normal in size. Ascending aorta: The ascending aorta was normal in size. Mitral valve: Structurally normal valve. Mobility was not restricted. Doppler: Transvalvular velocity was within the normal range. There was no evidence for stenosis. There was no significant regurgitation. Valve area by pressure half-time: 3.8cm^2. Indexed valve area by pressure half-time: 1.8cm^2/m^2. Peak gradient (D): 7.3mm Hg. Left atrium: The atrium was mildly dilated. Right ventricle: The cavity size was normal. Wall thickness was normal. Systolic function was normal. Pulmonic valve: Doppler: Transvalvular velocity was within the normal range. There was no evidence for stenosis. There was no significant regurgitation. Tricuspid valve: Structurally normal valve. Doppler: Transvalvular velocity was within the normal range. There was no evidence for stenosis. There was trivial regurgitation. Pulmonary artery: Pulmonary systolic pressure was within the normal range, in the range of 30mm Hg to 35mm Hg. Right atrium: The atrium was normal in size. Pericardium: There was no pericardial effusion. Systemic veins: Inferior vena cava: The vessel was normal in size. Measurements Left ventricle Value Reference LV ID, ED, PLAX 4.1 cm 3.5 - 6.0 LV ID, ES, PLAX 3.1 cm 2.1 - 4.0 LV PW thickness, ED, PLAX 1.1 cm LV end-diastolic volume, 1-p A2C 120 ml LV ejection fraction, 1-p A2C 60 % LV end-diastolic volume, 1-p A4C 125 ml LV ejection fraction, 1-p A4C 60 % LV e', lateral 0.132 m/sec LV E/e', lateral 10 LV e', medial 0.114 m/sec LV E/e', medial 12 LV e', average 0.123 m/sec LV E/e', average 11 Ventricular septum Value Reference IVS thickness, ED, PLAX 1.0 cm LVOT Value Reference LVOT ID, S 2.0 cm LVOT ID, A-P 2.0 cm LVOT area 3.1 cm^2 LVOT peak velocity, S 1.44 m/sec LVOT mean velocity, S 1.06 m/sec LVOT VTI, S 29.9 cm LVOT peak gradient, S 8.3 mm Hg LVOT mean gradient, S 5 mm Hg Stroke volume (SV), LVOT DP 85 ml Stroke index (SV/bsa), LVOT DP 41 ml/m^2 Aortic valve Value Reference Aortic valve peak velocity, S 2.2 m/sec Aortic valve mean velocity, S 1.66 m/sec Aortic valve VTI, S 49.0 cm Aortic mean gradient, S 12 mm Hg Aortic peak gradient, S 19.4 mm Hg VTI ratio, LVOT/AV 0.61 Aortic valve area, VTI 1.9 cm^2 Velocity ratio, peak, LVOT/AV 0.65 Aortic valve area, peak velocity 2.1 cm^2 Velocity ratio, mean, LVOT/AV 0.64 Aortic valve area, mean velocity 2 cm^2 Aortic valve area/bsa, mean velocity 1 cm^2/m^2 Aorta Value Reference Aortic root ID, ED 3.1 cm Left atrium Value Reference LA ID, A-P, ES 4.4 cm LA ID/bsa, A-P 2.1 cm/m^2 <=2.2 LA area, ES, A4C 18.8 cm^2 8.8 - 23.4 LA area, ES, A2C 23 cm^2 LA volume/bsa, S 37 ml/m^2 LA volume, ES, 2-p 72 ml LA volume/bsa, ES, 2-p 35 ml/m^2 LA/aortic root ratio 1.41 Mitral valve Value Reference Mitral E-wave peak velocity 1.35 m/sec Mitral A-wave peak velocity 1.47 m/sec Mitral deceleration time 201 ms 150 - 230 Mitral pressure half-time 58 ms Mitral peak gradient, D 7.3 mm Hg Mitral E/A ratio, peak 0.92 Mitral valve area, PHT, DP 3.8 cm^2 Tricuspid valve Value Reference Tricuspid regurg peak velocity 2.7 m/sec Tricuspid peak RV-RA gradient 28.7 mm Hg Right atrium Value Reference RA area, ES, A4C 14.6 cm^2 8.3 - 19.5 Legend: (L) and (H) ayah values outside specified reference range. I have personally reviewed the images and have reviewed and edited the reported findings. Electronically signed by Jermaine Rocha 03/14/2018 09:09
[2018-03-14] MEDS: Loratidine 10 MG TAB PO (09:14)
[2018-03-14] MEDS: Pantoprazole 40 MG TABCR PO (09:14)
[2018-03-14] MEDS: Beta-Carotene(A) w/C,E, & Minerals TAB 1 TAB PO (09:14)
[2018-03-14] MEDS: Hydroxychloroquine 200 MG TAB 400 MG PO (09:14)
[2018-03-14] MEDS: Gabapentin 300 MG CAP PO ×2 (09:14→21:00)
[2018-03-14] MEDS: Aspirin 81 MG CHEW PO (09:14)
[2018-03-14] MEDS: Calcium 600mg/Vit D 200U TAB 1 TAB PO (09:15)
[2018-03-14] MEDS: Clopidogrel 75 MG TAB PO (09:15)
[2018-03-14] MEDS: amLODIPine 10 MG TAB PO (09:15)
[2018-03-14] MEDS: DULoxetine 30 MG CAP 60 MG PO (09:15)
[2018-03-14] MEDS: Ferrous Gluconate 324 MG TAB PO (09:16)
[2018-03-14] MEDS: Lisinopril 5 MG TAB PO (09:16)
[2018-03-14] MEDS: Multivitamin TAB 1 TAB PO (09:16)
[2018-03-14] MEDS: Insulin Aspart 300 UNITS/3 ML PEN SC ×3 (09:17→16:51)
[2018-03-14] MEDS: Normal Saline Flush 10 ML SYR ×2 (09:18→10:11)
[2018-03-14] MEDS: methylPREDNISolone SUCC 125 MG VIAL 80 MG IVP (09:19)
[2018-03-14] MEDS: Budesonide/Formoterol 160/4.5 6 GM 60 PUFF INH IH ×2 (09:55→21:01)
[2018-03-14] MEDS: Fluticasone NASAL SPRAY 16 GM BTL NS (10:22)
[2018-03-14] MEDS: guaiFENesin 600 MG TABCR PO ×2 (11:37→23:31)
[2018-03-14] MEDS: VANCOMYCIN 1,000 MG in Normal Saline 250 ML 166.667 MG IVPB ×2 (11:37→23:12)
--- NOTE | 2018-03-14 12:07 | PGE_ITS ---
Date of Service Date of service: 03/14/18 Time of Service: 12:07 Assessment and Plan (1) HCAP (healthcare-associated pneumonia): Current visit: Yes Status: Acute Potential infiltrate by CXR during recent hospitalization, with sputum cultures growing Strep Pneumoniae - treated with five days of Levofloxacin and steroid therapy, now with worsening infiltrates, fevers, leukocytosis, and hypoxia. Continue treatment with HCAP coverage, Day #2 of Vancomycin and Cefepime, and monitor Blood and sputum Cultures. CT with reported multi-focal pneumonia. Also appears to have concurrent COPD exacerbation, currently under treatment with IV steroids and frequent Nebs. Continue supplemental Oxygen, antitussive medications. (2) COPD (chronic obstructive pulmonary disease): Current visit: Yes Status: Chronic With current acute exacerbation. Continue treatment with IV Steroids but wean, nebs as above. On antibiotic therapy for Pneumonia as well. (3) Diabetes: Current visit: Yes Status: Chronic Holding Metformin. Continue ISS and monitor blood sugar. (4) Takotsubo cardiomyopathy: Current visit: Yes Status: Chronic Reported prior history per discussion with patient's Neurologist who has access to PCP records. ECHO without evidence of cardiomyopathy. (5) Sarcoidosis: Current visit: Yes Status: Chronic Again as per discussion with outpatient neurology - Unsure if patient has a history of documented biopsy proven Sarcoidosis, or if disease is currently in remission. CT of the chest performed and without significant abnormality other than multi-focal opacities suspicious for pneumonia. (6) Rheumatoid arthritis: Current visit: Yes Status: Chronic Currently on Hydroxychloroquine. (7) Hypothyroidism (acquired): Current visit: Yes Status: Chronic Continue thyroid replacement therapy. (8) Anemia: Current visit: Yes Status: Chronic Unsure of etiology - Iron studies checked last visit with low iron, low normal TIBC and ferritin. Unsure if patient's anemia is multifactorial in etiology, and currently worse in setting of acute illness. B12 and FA normal. History of hypothyroidism on replacement therapy without any recent TSH values at this institution - TSH checked and normal despite acute illness. Continue oral iron supplement. Monitor hemoglobin, blood pressure closely. (9) Coronary artery disease: Current visit: No Status: Chronic Appears quiescent. Currently on DAPT with ASA and Plavix. Does not appear to be on BB or statin therapy. (10) DVT prophylaxis: Current visit: Yes Status: Acute SC Lovenox. (11) Advance directive discussed with patient: Current visit: Yes Status: Deleted Full Code. Subjective Interval history since last seen: 67-year-old woman with a prior medical history of COPD, CAD, DM, and chronic anemia, admitted from [facility] emergency department on 03/12/2018 with a diagnosis of Pneumonia. Mrs. Ybarra initially presented to the hospital and was admitted and discharged from [facility] (03/06-03/07/2018) for acute COPD exacerbation w/ bronchitis. Her CXR showed potential infiltrates as well. She was discharged home on 5 days of Levaquin and prednisone, and review of her laboratory data reveals presence of Strep Pneumo on sputum cultures. She had been improving following discharge from the hospital, although remained dyspneic even at rest. She presented back to the emergency room with a reported cough, worsening dyspnea, and noted hypoxia, along with tachypnea, tachycardia, and fever 38.7. Repeat imaging with a CXR showed bibasilar infiltrate and lab-work revealed evidence of a leukocytosis. She was referred for admission, and placed in the ICU for treatment of Pneumonia that failed Levofloxacin. This morning the patient reports continued improvement in symptoms, not yet at baseline. Reports some continued wheezing. She has remained afebrile since the time of admission. No overnight events reported. Exam Narrative Exam Narrative: General: Patient appears improved since prior exam, AAOX3 Neck: Supple CV: Regular, borderline tachycardic at time of exam, S1S2, No rubs, murmurs, or gallops. Pulmonary: Bibasilar crackles and rhonchi improved, with diffuse wheezing vastly improved today. Abdomen: + Bowel Sounds, soft, nontender, nondistended Vascular: No lower extremity edema Psych: Normal mood and affect. Objective Objective Clinical Data: Abnormal lab results 03/13/18 03/14/18 03/14/18 Range/Units 06:28 06:15 06:15 WBC 15.68 H (4.4-10.8) k/cumm RBC 2.76 L (4.00-5.20) m/cumm Hgb 8.0 L (12.0-15.5) g/dL Hct 24.4 L (36.0-46.0) % Absolute Neutrophils 13.48 H (1.2-6.7) k/cumm Sodium 128 L (136-145) mmol/L Chloride 94 L (98-107) mmol/L Glucose 207 H (70-100) mg/dL Folate > 20.0 H (8.6-20.0) ng/mL Vital Signs Temperature 37.1 C 03/14/18 11:51 Temperature Source Temporal Artery Scan 03/14/18 11:51 Pulse 99 H 03/14/18 09:45 Pulse 110 H 03/14/18 09:00 Respiratory Rate 18 03/14/18 09:45 Respiratory Effort Short of Breath 03/14/18 11:51 Respiratory Depth Shallow 03/14/18 11:51 Respiratory Pattern Tachypnea 03/14/18 11:51 Blood Pressure 145/74 H 03/14/18 08:42 Blood Pressure Mean 92 03/14/18 08:36 Blood Pressure Position Supine 03/14/18 11:51 Pulse Oximetry 98 03/14/18 09:45 Oxygen Delivery Method Room Air 03/14/18 09:45 Oxygen Flow Rate 0 03/14/18 09:45 Pain Level 0 03/14/18 11:51 Intake & Output 03/13/18 03/14/18 03/14/18 23:59 11:59 23:59 Intake Total 2063.333 / 2063.333 1972 / 1972 Output Total 1500 / 1500 2200 / 2200 90 / 90 Balance 563.333 / 563.333 -227 / -227 -90 / -90 Weight 90 kg Intake: IV 1073.333 / 4145.793 5512 / 1105 Oral 990 / 990 868 / 868 Output: Urine 1500 / 1500 2200 / 2200 90 / 90 Other: Urine Color Yellow Yellow Urine Appearance Clear Clear Urine Odor None None Comment Mixed with stool. Amount approximated Stool Occult Blood Positive Stool Size Large Stool Characteristics Formed Voiding Methods Bedside Commode Bedside Commode Urinal Laboratory Results WBC 15.68 k/cumm (4.4-10.8) H 03/14/18 06:15 RBC 2.76 m/cumm (4.00-5.20) L 03/14/18 06:15 Hgb 8.0 g/dL (12.0-15.5) L 03/14/18 06:15 Hct 24.4 % (36.0-46.0) L 03/14/18 06:15 MCV 88.4 fL (80-95) 03/14/18 06:15 MCH 29.0 pg (27.0-33.0) 03/14/18 06:15 MCHC 32.8 g/dL (32.0-36.0) 03/14/18 06:15 RDW 12.0 % (11.7-14.6) 03/14/18 06:15 Plt Count 292 x1000/uL (130-400) 03/14/18 06:15 MPV 9.4 fL (8.0-11.0) 03/14/18 06:15 Immature Gran % 2.5 03/14/18 06:15 Neutrophils % 86.0 03/14/18 06:15 Lymphocytes % 7.8 03/14/18 06:15 Monocytes % 3.6 03/14/18 06:15 Eosinophils % 0.0 03/14/18 06:15 Basophils % 0.1 03/14/18 06:15 Absolute Neutrophils 13.48 k/cumm (1.2-6.7) H 03/14/18 06:15 Absolute Lymphocytes 1.22 k/cumm (1.2-3.4) 03/14/18 06:15 Absolute Monocytes 0.56 k/cumm (0.11-0.7) 03/14/18 06:15 Absolute Eosinophils 0.00 k/cumm (0.0-0.7) 03/14/18 06:15 Absolute Basophils 0.02 k/cumm (0.0-0.2) 03/14/18 06:15 Metamyelocytes 2.0 % 03/14/18 06:15 Differential Comment Agrees w/ instrument 03/14/18 06:15 RBC Morphology Normal 03/14/18 06:15 D-Dimer 273 ng/mlFEU (<500) 03/12/18 21:18 Sodium 128 mmol/L (136-145) L 03/14/18 06:15 Potassium 4.4 mmol/L (3.5-5.1) 03/14/18 06:15 Chloride 94 mmol/L (98-107) L 03/14/18 06:15 Carbon Dioxide 26.1 mmol/L (21.0-32.0) 03/14/18 06:15 Anion Gap 7.9 mmol/L (3-11) 03/14/18 06:15 BUN 17 mg/dL (7-18) 03/14/18 06:15 Creatinine 1.00 mg/dL (0.55-1.02) 03/14/18 06:15 Estimated GFR/1.73 m2 55.30 (mL/min/1.73m2) 03/14/18 06:15 Glucose 207 mg/dL (70-100) H 03/14/18 06:15 Lactate 1.2 mmol/L (0.6-1.4) 03/12/18 22:35 Calcium 8.6 mg/dL (8.5-10.1) 03/14/18 06:15 Total Bilirubin 0.4 mg/dL (0.2-1.0) 03/12/18 21:18 AST 20 U/L (15-37) 03/12/18 21:18 ALT 28 U/L (12-78) 03/12/18 21:18 Alkaline Phosphatase 66 U/L (46-116) 03/12/18 21:18 Troponin I < 0.02 ng/mL (0.00-0.06) 03/12/18 21:18 NT-Pro-B Natriuret Pep 132 pg/mL (-299) 03/12/18 21:18 Total Protein 7.2 g/dL (6.4-8.2) 03/12/18 21:18 Albumin 3.8 g/dL (3.4-5.0) 03/12/18 21:18 Vitamin B12 691 pg/mL (193-986) 03/13/18 06:28 Folate > 20.0 ng/mL (8.6-20.0) H 03/13/18 06:28 TSH 0.49 uIU/mL (0.358-3.74) 03/13/18 06:28 Objective Narrative Objective Narrative: Exam(s) a CT:CT chest wo SYMPTOM/DIAGNOSIS: PNEUMONIA, HYPOXIA CHEST CT: CT scan of the chest was performed without intravenous contrast material. There is patient motion artifact which does limit the examination. Comparison chest xray is 03/12/18. There is atherosclerosis of the thoracic aorta but no aneurysmal dilatation. Heart size is within normal limits. No significant pericardial effusion is seen. Coronary artery calcifications are present. There is no significant mediastinal or hilar adenopathy present on this noncontrast examination. No pleural effusion or pneumothorax is identified. Multi focal ground glass opacities are present throughout the lungs with a focal area of consolidation seen in the right middle lobe. The tracheobronchial tree is unremarkable. Upper abdominal images show the patient is status post cholecystectomy. Degenerative changes are present throughout the spine. IMPRESSION: Multi focal ground glass opacities throughout the lungs suspicious for multi focal pneumonia. Exam(s) a US:US echocardiogram *[facility]* *[facility]* [address] [place] [address] Date of study: 03/14/2018 Transthoracic Echocardiography M-mode, complete 2D, complete spectral Doppler, and color Doppler *STUDY CONCLUSIONS* Summary: 1. Procedure narrative: Image quality was fair. 2. Left ventricle: The cavity size was normal. Wall thickness was normal. Systolic function was normal. The estimated ejection fraction was 55-60%. Although no diagnostic regional wall motion abnormality was identified, this possibility cannot be completely excluded on the basis of this study. 3. Aortic valve: There was very mild stenosis. Peak velocity (S): 2.2m/sec. Mean gradient (S): 12mm Hg. Valve area (VTI): 1.9cm^2. 4. Left atrium: The atrium was mildly dilated. 5. Right ventricle: The cavity size was normal. Wall thickness was normal. Systolic function was normal.
[2018-03-14] MEDS: Sucralfate 1 GM TAB PO ×2 (17:54→21:15)
--- NOTE | 2018-03-14 18:14 | PDOC.CMPRO ---
- If Service Date Differs Date of service: 03/14/18 Time of Service: 18:14 Care Management Progress Note S/O: CM met with Deborah at the bedside she is not on oxygen at this time. She states her breathing is much better. She states she has quit smoking and has no intention of starting again. She declines any NRT therapies. She feels that she is improving and that she will be able to return home in the next few days. CM reviewed the plan of IV antibiotics. Of note her sodium continues to be low after review of her labs. A: Deborah is a 67 year old female readmission with HCAP P: Deborah, is currently receiving care in the ICU including IV antibiotics and steroids. Deborah will be discharged home when medically stable. CM to continue to provide support to patient, family, care team, discharge planning and disposition. Family to transport at time of discharge.
[2018-03-14 18:25] LABS: HCT 22.9 % (36.0-46.0); HGB 8.1 g/dL (12.0-15.5)
[2018-03-14] MEDS: Albuterol 2.5 MG/3 ML INH SOLN VIAL UPD (18:47)
[2018-03-14] MEDS: Gabapentin 600 MG TAB PO (21:00)
[2018-03-14] MEDS: Montelukast 10 MG TAB PO (21:00)
[2018-03-14] MEDS: Enoxaparin 40 MG/0.4 ML SYR SC (21:01)
[2018-03-14] MEDS: Pantoprazole 40 MG VIAL IVP (21:01)
[2018-03-14] MEDS: methylPREDNISolone SUCC 40 MG VIAL IVP (21:01)
[2018-03-14] MEDS: Normal Saline Flush 10 ML SYR IVP (21:03)
[2018-03-14] MEDS: rOPINIRole 0.5 MG TAB 0.25 MG PO (21:15)
[2018-03-14] MEDS: traZODone 100 MG TAB PO (23:11)
[2018-03-15] VITALS (12 sets, daily range): BP systolic 127–146; BP diastolic 54–73; PULSE 88–95; RESP 4–19; TEMP 36.1–36.8; O2SAT 93–96
[2018-03-15] MEDS: CEFEPIME 2 GM in Normal Saline 100 ML IVPB ×2 (06:33→17:50)
[2018-03-15] MEDS: Levothyroxine 112 MCG TAB PO (06:33)
[2018-03-15 07:15] LABS: Abs Immature Grans 0.64 k/cumm (0.0-0.09); HGB 8.2 g/dL (12.0-15.5); Mean Corp. HGB Concentration 34.2 g/dL (32.0-36.0); Mean Corpuscular Volume 87.9 fL (80-95); Mean Platelet Volume 9.1 fL (8.0-11.0); RBC 2.73 m/cumm (4.00-5.20); RBC Distribution Width 11.9 % (11.7-14.6); White Blood Cell Count 13.95 k/cumm (4.4-10.8)
[2018-03-15] MEDS: Albuterol/Ipratropium 3 ML UPD VIAL UPD ×4 (07:18→21:51)
[2018-03-15] MEDS: Budesonide/Formoterol 160/4.5 6 GM 60 PUFF INH IH ×2 (07:20→21:49)
[2018-03-15 07:22] LABS: Anion Gap 9.8 mmol/L (3-11); BUN 21 mg/dL (7-18); CO2 25.2 mmol/L (21.0-32.0); CREATININE 0.96 mg/dL (0.55-1.02); Calcium 8.5 mg/dL (8.5-10.1); Chloride 94 mmol/L (98-107); Estimated GFR 57.97 (mL/min/1.73m2); Glucose 190 mg/dL (70-100); Potassium 4.5 mmol/L (3.5-5.1); Sodium 129 mmol/L (136-145)
[2018-03-15 07:37] LABS: Absolute Lymphocyte Count 1.67 k/cumm (1.2-3.4); Absolute Neutrophil Count 11.02 k/cumm (1.2-6.7); Platelet Count 316 x1000/uL (130-400)
[2018-03-15 07:38] LABS: Absolute Monocyte Count 0.84 k/cumm (0.11-0.7); Diff Comment Manual Differential; RBC Morphology Normal
--- NOTE | 2018-03-15 07:48 | PDOC.CMPRO ---
Care Management Progress Note S/O: Deborah was in Dunbar's position in bed when CM met with her. She appeared to be in good spirits; smiling and joking around and stated she would love to be returning home today. She did have an audible wheeze when speaking. No change to overall plan. A: Deborah is a 67 year old female who was readmitted 03/12/18 with HCAP. P: Deborah, remains ICU status; no anticipated change in status. Deborah will be discharged home when medically stable with no additional services anticipated at this time. CM to continue to provide support to patient, family, care team, discharge planning and disposition. Deborah will transport home via private vehicle with her sister at time of discharge.
[2018-03-15] MEDS: Sucralfate 1 GM TAB PO ×4 (08:07→21:47)
[2018-03-15] MEDS: Calcium 600mg/Vit D 200U TAB 1 TAB PO (08:08)
[2018-03-15] MEDS: Ferrous Gluconate 324 MG TAB PO (08:08)
[2018-03-15] MEDS: Beta-Carotene(A) w/C,E, & Minerals TAB 1 TAB PO (08:08)
[2018-03-15] MEDS: Hydroxychloroquine 200 MG TAB 400 MG PO (08:08)
[2018-03-15] MEDS: DULoxetine 30 MG CAP 60 MG PO (08:09)
[2018-03-15] MEDS: Gabapentin 300 MG CAP PO ×2 (08:09→21:47)
[2018-03-15] MEDS: Multivitamin TAB 1 TAB PO (08:09)
[2018-03-15] MEDS: Lisinopril 5 MG TAB PO (08:10)
[2018-03-15] MEDS: Aspirin 81 MG CHEW PO (08:10)
[2018-03-15] MEDS: amLODIPine 10 MG TAB PO (08:10)
[2018-03-15] MEDS: Loratidine 10 MG TAB PO (08:10)
[2018-03-15] MEDS: Clopidogrel 75 MG TAB PO (08:10)
[2018-03-15] MEDS: Insulin Aspart 300 UNITS/3 ML PEN SC ×3 (08:13→16:50)
[2018-03-15] MEDS: Normal Saline Flush 10 ML SYR IVP ×3 (08:13→23:55)
[2018-03-15] MEDS: methylPREDNISolone SUCC 40 MG VIAL IVP (08:13)
[2018-03-15] MEDS: Fluticasone NASAL SPRAY 16 GM BTL NS (08:13)
[2018-03-15] MEDS: Pantoprazole 40 MG VIAL IVP ×2 (08:13→21:53)
--- NOTE | 2018-03-15 08:35 | W.SPEECHEVAL ---
Date of service: 03/15/18 Time of Service: 07:15 Speech Therapy Evaluation Note: REFERRING PROVIDER: Dr. Tamayo BACKGROUND This is a 67-year-old right-handed female who lives with her sister. On 03/12/18 she presented to the ED from home with complaints of dyspnea. A chest x-ray was done at that time which showed bibasilar infiltrates. She was admitted to the ICU for treatment of HCAP. This patient had a recent admission (03/06/18 - 03/07/18), also for pneumonia. On 03/13/[address] was done which showed multi-focal opacities suspicious for pneumonia. On 03/14/2018 a swallow evaluation was requested due to concerns of possible aspiration given the consecutive admissions for pnuemonia. The patient is able to give additional background information with regard to p. o. consistencies tolerated in the weeks prior to this admission. She states that she takes what, by description, are Thin liquids, a Dysphagia Advanced diet with chopped meats and multiple whole pills at one time with a liquid wash. She says that has had a dry throat all her adult life and was advised to drink cold water for moisture and comfort during meals. She also reports that she if she eats things that are too hard, she coughs because she can't chew them well enough. PMH: COPD, CAD, DM II, HTN, depression, RA, hypothyroidism, current smoker, h/o OH. OBJECTIVE Nursing reports the following: - Temp: 36.6 - O2 sat: 96% on RA - Lung sounds: inspiratodry wheeze posterior bilaterally - Pt is on a Regular consistency diet, Thin liquids, and whole pills w/a liquid wash The patient is sitting up in her chair in her room. When I enter the room she greets me with good direct eye contact, a smile and an appropriate intelligible verbal greeting. She appears to be 10+ years older than her stated age. She states that she is willing to work with me this morning. She is A & O x4 and able to follow three-step directions. 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 She states that this is been the case for more than 10 years and that she has full upper and lower dentures that never fit and, consequently, has never worn. She denies any sore spots on either upper or lower ridge. Oral sensation is within normal limits for buccal, labial and lingual areas bilaterally. Motorically the smile is symmetrical as are forehead wrinkles. Strength and range of motion for labial and buccal areas are within normal limits. No lingual deviation on protrusion is seen in a setting of good excursion. Lingual lateralization is within normal limits bilaterally as are lingual rapid alternating movements. Lingual strength is within normal limits bilaterally. Mandibular lateralization is within normal limits bilaterally. Velopharyngeal elevation is strong and symmetrical. Volitional cough and volitional throat-clear are both within normal limits. Speech intelligibility to this unfamiliar listener in a setting of mild background noise is 100%. Vocal quality and vocal intensity are both within normal limits. The patient demonstrates a wet sounding but nonproductive cough x1 during the visit. She states that this is due to phlegm in her throat. With regard to swallowing, the following is noted: - [place]-thick liquid: Good bolus control and posterior oral transit. No trish signs and symptoms of aspiration or penetration are seen. Oral clearance is 100% and no oral escape is noted. - Thin liquid: Results are the same as for [place]-thick liquid. These results are true for both single and consecutive swallows by both cup and straw. - Puree food: Bolus control and linguopalatal bolus compression are within normal limits. Posterior oral transit appears to be within normal limits. No trish signs and symptoms of aspiration or penetration are seen. Oral clearance is 100% and no oral escape is seen. - Mechanically Altered food: Good mastication quality, bolus control and posterior oral transit. No trish signs and symptoms of aspiration or penetration are seen. Oral clearance is 100% and no oral escape is noted. - Dysphagia Advanced food: Increased mastication time is used with this consistency but this does result in good mastication quality. Bolus control and posterior oral transit are both within normal limits. No trish signs and symptoms of aspiration or penetration are seen. Oral clearance is 100% and no oral escape is noted. - Whole pills with a liquid wash: Nursing reports that the patient has 14 pills to take this morning. The patient is confident that she can take all of them at one time, just as she does at home. The patient shows good bolus control and posterior oral transit of the multiple pills taken at one time with a Thin liquid wash. No trish signs and symptoms of aspiration or penetration are seen. Oral clearance is 100%. 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 She does not show any clinical signs/sypmptoms of a pharyngeal or esophageal dysphagia. It is felt that a disordered swallow is not responsible for the patient's current pneumonia, assuming consistent p. o. avoidance of Regular consistency foods. RECOMMENDATIONS 1. Change from a Regular consistency diet to a Dysphagia Advanced diet with moistened fine-chopped meats. 2. Continue: - Thin liquids - Whole pills with a liquid wash 3. Independent self-feeding 4. No ST indicated at this time. Thank you for referring this patient.
[2018-03-15 11:58] LABS: Vancomycin, Trough 14.3 ug/mL (10.0-20.0)
[2018-03-15] MEDS: VANCOMYCIN 1,000 MG in Normal Saline 250 ML 166.667 MG IVPB ×2 (12:15→23:54)
[2018-03-15] MEDS: guaiFENesin 600 MG TABCR PO (12:15)
--- NOTE | 2018-03-15 13:35 | W.PM.PROGNOT ---
Date of Service Date of service: 03/15/18 Time of Service: 13:35 Assessment and Plan (1) HCAP (healthcare-associated pneumonia): Current visit: Yes Status: Acute Potential infiltrate by CXR during recent hospitalization, with sputum cultures growing Strep Pneumoniae - treated with five days of Levofloxacin and steroid therapy, now with worsening infiltrates, fevers, leukocytosis, and hypoxia. Continue treatment with HCAP coverage, Day #3 of Vancomycin and Cefepime, and monitor Blood and sputum Cultures. CT with reported multi-focal pneumonia. Rapid flu negative. Also appears to have concurrent COPD exacerbation, currently under treatment with IV steroids and frequent Nebs. Continue supplemental Oxygen, antitussive medications. (2) COPD (chronic obstructive pulmonary disease): Current visit: Yes Status: Chronic With current acute exacerbation, vastly improved. Continue treatment with IV Steroids but wean, nebs as above. On antibiotic therapy for Pneumonia as well. (3) Diabetes: Current visit: Yes Status: Chronic Holding Metformin. Continue ISS and monitor blood sugar. (4) Takotsubo cardiomyopathy: Current visit: Yes Status: Chronic Reported prior history per discussion with patient's Neurologist who has access to PCP records. ECHO without evidence of cardiomyopathy. (5) Sarcoidosis: Current visit: Yes Status: Chronic Again as per discussion with outpatient neurology - Unsure if patient has a history of documented biopsy proven Sarcoidosis, or if disease is currently in remission. CT of the chest performed and without significant abnormality other than multi-focal opacities suspicious for pneumonia. (6) Rheumatoid arthritis: Current visit: Yes Status: Chronic Currently on Hydroxychloroquine. (7) Hypothyroidism (acquired): Current visit: Yes Status: Chronic Continue thyroid replacement therapy. (8) Anemia: Current visit: Yes Status: Chronic Currently with Heme + stool in patient on dual antiplatelet therapy with ASA and plavix. Iron studies checked last visit with low iron, low normal TIBC and normal ferritin. Unsure if patient's anemia is multifactorial in etiology, with anemia of chronic disease, acute illness, and acute GI blood loss. Given detection of occult blood in stool discontinued Lovenox, and increased IV PPI to BID dosing. Also initiated QID carafate. Repeat serial H/H and am Hgb remain stable. Patient is type and screened as well. Also with B12 and FA normal. History of hypothyroidism on replacement therapy without any recent TSH values at this institution - TSH checked and normal despite acute illness. Continue oral iron supplement. Monitor hemoglobin, blood pressure closely. (9) Coronary artery disease: Current visit: No Status: Chronic Appears quiescent. Currently on DAPT with ASA and Plavix, unsure of intended duration, with potential GI bleed as above. Does not appear to be on BB or statin therapy. (10) DVT prophylaxis: Current visit: Yes Status: Acute SC Lovenox discontinued in setting of potential GIB. Continue SCDs, TEDS. (11) Advance directive discussed with patient: Current visit: Yes Status: Deleted Full Code. Subjective Interval history since last seen: 67-year-old woman with a prior medical history of COPD, CAD, DM, and chronic anemia, admitted from [facility] emergency department on 03/12/2018 with a diagnosis of Pneumonia. Mrs. Ybarra initially presented to the hospital and was admitted and discharged from [facility] (03/06-03/07/2018) for acute COPD exacerbation w/ bronchitis. Her CXR showed potential infiltrates as well. She was discharged home on 5 days of Levaquin and prednisone, and review of her laboratory data reveals presence of Strep Pneumo on sputum cultures. She had been improving following discharge from the hospital, although remained dyspneic even at rest. She presented back to the emergency room with a reported cough, worsening dyspnea, and noted hypoxia, along with tachypnea, tachycardia, and fever. Repeat imaging with a CXR showed bibasilar infiltrate and lab-work revealed evidence of a leukocytosis. A subsequent CT obtained showed multi-focal infiltrates. She has remained on broad spectrum antibiotic therapy and IV Steroids with frequent nebs, with vast improvement in overall symptoms. This morning the patient reports continued improvement in symptoms, not yet at baseline. She has remained afebrile since the time of admission. No overnight events reported. Exam Narrative Exam Narrative: General: Patient appears improved since prior exam, AAOX3 Neck: Supple CV: Regular, tachycardic at time of exam, S1S2, No rubs, murmurs, or gallops. Pulmonary: Bibasilar crackles and rhonchi vastly improved, with diffuse wheezing vastly improved again today. Abdomen: + Bowel Sounds, soft, nontender, nondistended Vascular: No lower extremity edema Psych: Normal mood and affect. Objective Objective Clinical Data: Abnormal lab results 03/14/18 03/15/18 03/15/18 Range/Units 18:12 07:00 07:00 WBC 13.95 H (4.4-10.8) k/cumm RBC 2.73 L (4.00-5.20) m/cumm Hgb 8.1 L 8.2 L (12.0-15.5) g/dL Hct 22.9 L 24.0 L (36.0-46.0) % Absolute Neutrophils 11.02 H (1.2-6.7) k/cumm Absolute Monocytes 0.84 H (0.11-0.7) k/cumm Sodium 129 L (136-145) mmol/L Chloride 94 L (98-107) mmol/L BUN 21 H (7-18) mg/dL Glucose 190 H (70-100) mg/dL Vital Signs Temperature 36.1 C L 03/15/18 12:29 Temperature Source Temporal Artery Scan 03/15/18 12:29 Pulse 95 H 03/15/18 03:30 Pulse 96 H 03/14/18 22:47 Respiratory Rate 16 03/15/18 03:30 Respiratory Effort Short of Breath 03/15/18 12:29 Respiratory Depth Normal 03/15/18 12:29 Respiratory Pattern Normal 03/15/18 12:29 Blood Pressure 145/67 H 03/14/18 22:47 Blood Pressure Mean 87 03/14/18 22:47 Blood Pressure Position Supine 03/14/18 11:51 Pulse Oximetry 93 L 03/15/18 07:15 Oxygen Delivery Method Room Air 03/15/18 07:15 Oxygen Flow Rate 0 03/15/18 07:15 Pain Level 0 03/15/18 12:29 Intake & Output 03/14/18 03/15/18 03/15/18 23:59 11:59 23:59 Intake Total 8 / 2068 1180 / 1180 472 / 472 Output Total 1240 / 1240 1275 / 1275 Balance 828 / 828 -95 / -95 472 / 472 Weight 93.1 kg Intake: IV 1350 / 1350 270 / 270 Oral 718 / 718 910 / 910 472 / 472 Output: Urine 1240 / 1240 1275 / 1275 Other: Urine Color Light Nancy Yellow Urine Appearance Cloudy Clear Urine Odor Normal Stool Occult Blood Positive Stool Size Large Stool Characteristics Soft Black Voiding Methods Bedside Commode Laboratory Results WBC 13.95 k/cumm (4.4-10.8) H 03/15/18 07:00 RBC 2.73 m/cumm (4.00-5.20) L 03/15/18 07:00 Hgb 8.2 g/dL (12.0-15.5) L 03/15/18 07:00 Hct 24.0 % (36.0-46.0) L 03/15/18 07:00 MCV 87.9 fL (80-95) 03/15/18 07:00 MCH 30.0 pg (27.0-33.0) 03/15/18 07:00 MCHC 34.2 g/dL (32.0-36.0) 03/15/18 07:00 RDW 11.9 % (11.7-14.6) 03/15/18 07:00 Plt Count 316 x1000/uL (130-400) 03/15/18 07:00 MPV 9.1 fL (8.0-11.0) 03/15/18 07:00 Immature Gran % See Differential 03/15/18 07:00 Neutrophils % 77.0 03/15/18 07:00 Lymphocytes % 12.0 03/15/18 07:00 Monocytes % 6.0 03/15/18 07:00 Eosinophils % 0.0 03/15/18 07:00 Basophils % 0.0 03/15/18 07:00 Absolute Neutrophils 11.02 k/cumm (1.2-6.7) H 03/15/18 07:00 Band Neutrophils 2.0 % 03/15/18 07:00 Absolute Lymphocytes 1.67 k/cumm (1.2-3.4) 03/15/18 07:00 Absolute Monocytes 0.84 k/cumm (0.11-0.7) H 03/15/18 07:00 Absolute Eosinophils 0.00 k/cumm (0.0-0.7) 03/15/18 07:00 Absolute Basophils 0.00 k/cumm (0.0-0.2) 03/15/18 07:00 Metamyelocytes 1.0 % 03/15/18 07:00 Myelocytes 2.0 % 03/15/18 07:00 Differential Comment Manual differential 03/15/18 07:00 RBC Morphology Normal 03/15/18 07:00 D-Dimer 273 ng/mlFEU (<500) 03/12/18 21:18 Sodium 129 mmol/L (136-145) L 03/15/18 07:00 Potassium 4.5 mmol/L (3.5-5.1) 03/15/18 07:00 Chloride 94 mmol/L (98-107) L 03/15/18 07:00 Carbon Dioxide 25.2 mmol/L (21.0-32.0) 03/15/18 07:00 Anion Gap 9.8 mmol/L (3-11) 03/15/18 07:00 BUN 21 mg/dL (7-18) H 03/15/18 07:00 Creatinine 0.96 mg/dL (0.55-1.02) 03/15/18 07:00 Estimated GFR/1.73 m2 57.97 (mL/min/1.73m2) 03/15/18 07:00 Glucose 190 mg/dL (70-100) H 03/15/18 07:00 Lactate 1.2 mmol/L (0.6-1.4) 03/12/18 22:35 Calcium 8.5 mg/dL (8.5-10.1) 03/15/18 07:00 Total Bilirubin 0.4 mg/dL (0.2-1.0) 03/12/18 21:18 AST 20 U/L (15-37) 03/12/18 21:18 ALT 28 U/L (12-78) 03/12/18 21:18 Alkaline Phosphatase 66 U/L (46-116) 03/12/18 21:18 Troponin I < 0.02 ng/mL (0.00-0.06) 03/12/18 21:18 NT-Pro-B Natriuret Pep 132 pg/mL (-299) 03/12/18 21:18 Total Protein 7.2 g/dL (6.4-8.2) 03/12/18 21:18 Albumin 3.8 g/dL (3.4-5.0) 03/12/18 21:18 Vitamin B12 691 pg/mL (193-986) 03/13/18 06:28 Folate > 20.0 ng/mL (8.6-20.0) H 03/13/18 06:28 TSH 0.49 uIU/mL (0.358-3.74) 03/13/18 06:28 Vancomycin Trough 14.3 ug/mL (10.0-20.0) 03/15/18 11:35 Patient ABO/Rh A Positive 03/14/18 18:12 Antibody Screen Negative 03/14/18 18:12
[2018-03-15] MEDS: Gabapentin 600 MG TAB PO (21:46)
[2018-03-15] MEDS: Montelukast 10 MG TAB PO (21:47)
[2018-03-15] MEDS: predniSONE 20 MG TAB 40 MG PO (21:47)
[2018-03-15] MEDS: Melatonin 3 MG TAB PO (21:47)
[2018-03-15] MEDS: rOPINIRole 0.5 MG TAB 0.25 MG PO (21:48)
[2018-03-16] VITALS (14 sets, daily range): BP systolic 144–161; BP diastolic 72–82; PULSE 84–115; RESP 4–22; TEMP 36.4–37.6; O2SAT 94–100
[2018-03-16] MEDS: guaiFENesin 600 MG TABCR PO ×3 (00:02→23:55)
[2018-03-16] MEDS: Acetaminophen 325 MG TAB PO (04:44)
[2018-03-16] MEDS: Albuterol/Ipratropium 3 ML UPD VIAL UPD ×5 (04:45→23:54)
[2018-03-16] MEDS: CEFEPIME 2 GM in Normal Saline 100 ML IVPB ×2 (06:34→17:40)
[2018-03-16] MEDS: Levothyroxine 112 MCG TAB PO (06:34)
[2018-03-16 07:20] LABS: HCT 24.6 % (36.0-46.0); HGB 8.4 g/dL (12.0-15.5); Mean Corp. HGB Concentration 34.1 g/dL (32.0-36.0); Mean Corpuscular Volume 87.9 fL (80-95); Mean Platelet Volume 9.5 fL (8.0-11.0); Platelet Count 345 x1000/uL (130-400); White Blood Cell Count 13.28 k/cumm (4.4-10.8)
[2018-03-16 07:31] LABS: Anion Gap 11.2 mmol/L (3-11); BUN 19 mg/dL (7-18); CO2 23.8 mmol/L (21.0-32.0); CREATININE 0.97 mg/dL (0.55-1.02); Calcium 8.6 mg/dL (8.5-10.1); Chloride 91 mmol/L (98-107); Estimated GFR 57.28 (mL/min/1.73m2); Glucose 214 mg/dL (70-100); Potassium 4.4 mmol/L (3.5-5.1); Sodium 126 mmol/L (136-145)
[2018-03-16 07:48] LABS: Absolute Neutrophil Count 10.49 k/cumm (1.2-6.7)
[2018-03-16 07:49] LABS: Diff Comment Manual Differential; RBC Morphology Normal
--- NOTE | 2018-03-16 08:32 | PDOC.CMPRO ---
- If Service Date Differs Date of service: 03/16/18 Time of Service: 08:32 Care Management Progress Note S/O: Deborah is lying in bed in the ICU when CM visited this morning. Deborah will be transferred to [place] status today. She is engaged in conversation, makes good eye contact, and is talkative. Deborah reports that she is feeling better this morning and would like to go home and see her dog. Deborah does not appear to be in any respiratory distress and denies pain. She continues to have a non-productive cough and is receiving IV antibiotics. A: Deborah is a 67 year old female who was readmitted 03/12/18 with HCAP. P: Deborah will be discharged home when medically stable with no additional services anticipated at this time. Deborah will transport home via private vehicle with her sister, Imani, at time of discharge. CM to continue to provide support to patient, family, care team regarding discharge planning and disposition.
[2018-03-16] MEDS: Budesonide/Formoterol 160/4.5 6 GM 60 PUFF INH IH ×2 (08:34→20:20)
--- NOTE | 2018-03-16 08:35 | CMPROGNOTE_ITS ---
- If Service Date Differs Date of service: 03/16/18 Time of Service: 08:32 Care Management Progress Note S/O: Deborah is lying in bed in the ICU when CM visited this morning. Deborah will be transferred to [place] status today. She is engaged in conversation, makes good eye contact, and is talkative. Deborah reports that she is feeling better this morning and would like to go home and see her dog. Deborah does not appear to be in any respiratory distress and denies pain. She continues to have a non-productive cough and is receiving IV antibiotics. A: Deborah is a 67 year old female who was readmitted 03/12/18 with HCAP. P: Deborah will be discharged home when medically stable with no additional services anticipated at this time. Deborah will transport home via private vehicle with her sister, Imani, at time of discharge. CM to continue to provide support to patient, family, care team regarding discharge planning and disposition.
[2018-03-16] MEDS: DULoxetine 30 MG CAP 60 MG PO (09:21)
[2018-03-16] MEDS: Clopidogrel 75 MG TAB PO (09:21)
[2018-03-16] MEDS: amLODIPine 10 MG TAB PO (09:21)
[2018-03-16] MEDS: Lisinopril 5 MG TAB PO (09:21)
[2018-03-16] MEDS: Beta-Carotene(A) w/C,E, & Minerals TAB 1 TAB PO (09:21)
[2018-03-16] MEDS: Gabapentin 300 MG CAP PO ×2 (09:21→20:20)
[2018-03-16] MEDS: Sucralfate 1 GM TAB PO ×4 (09:21→21:58)
[2018-03-16] MEDS: Aspirin 81 MG CHEW PO (09:21)
[2018-03-16] MEDS: Loratidine 10 MG TAB PO (09:21)
[2018-03-16] MEDS: predniSONE 20 MG TAB 40 MG PO ×2 (09:21→20:20)
[2018-03-16] MEDS: Calcium 600mg/Vit D 200U TAB 1 TAB PO (09:21)
[2018-03-16] MEDS: Hydroxychloroquine 200 MG TAB 400 MG PO (09:21)
[2018-03-16] MEDS: Multivitamin TAB 1 TAB PO (09:21)
[2018-03-16] MEDS: Fluticasone NASAL SPRAY 16 GM BTL NS (09:22)
[2018-03-16] MEDS: Ferrous Gluconate 324 MG TAB PO (09:27)
[2018-03-16] MEDS: Insulin Aspart 300 UNITS/3 ML PEN SC ×3 (09:28→16:58)
[2018-03-16] MEDS: Normal Saline Flush 10 ML SYR IVP ×5 (09:39→23:55)
[2018-03-16] MEDS: Pantoprazole 40 MG VIAL IVP ×2 (09:39→20:20)
[2018-03-16] MEDS: VANCOMYCIN 1,000 MG in Normal Saline 250 ML 166.667 MG IVPB ×2 (12:13→23:54)
[2018-03-16] MEDS: oxyCODONE 5 MG TAB PO ×2 (13:38→21:58)
--- NOTE | 2018-03-16 17:55 | W.PM.PROGNOT ---
Date of Service Date of service: 03/16/18 Time of Service: 17:55 Assessment and Plan (1) HCAP (healthcare-associated pneumonia): Current visit: Yes Status: Acute Potential infiltrate by CXR during recent hospitalization, with sputum cultures growing Strep Pneumoniae - treated with five days of Levofloxacin and steroid therapy, now with worsening infiltrates, fevers, leukocytosis, and hypoxia. Continue treatment with HCAP coverage, Day #4 of Vancomycin and Cefepime, and monitor Blood and sputum Cultures. CT with reported multi-focal pneumonia. Rapid flu negative. Also appears to have concurrent COPD exacerbation, currently under treatment with steroids and frequent Nebs. Continue supplemental Oxygen, antitussive medications. (2) COPD (chronic obstructive pulmonary disease): Current visit: Yes Status: Chronic With current acute exacerbation, vastly improved. Continue treatment with Steroids and wean as able, nebs as above. On antibiotic therapy for Pneumonia as well. (3) Diabetes: Current visit: Yes Status: Chronic Holding Metformin. Continue ISS and monitor blood sugar. (4) Takotsubo cardiomyopathy: Current visit: Yes Status: Chronic Reported prior history per discussion with patient's Neurologist who has access to PCP records. ECHO without evidence of cardiomyopathy. (5) Sarcoidosis: Current visit: Yes Status: Chronic Again as per discussion with outpatient neurology - Unsure if patient has a history of documented biopsy proven Sarcoidosis, or if disease is currently in remission. CT of the chest performed and without significant abnormality other than multi-focal opacities suspicious for pneumonia. (6) Rheumatoid arthritis: Current visit: Yes Status: Chronic Currently on Hydroxychloroquine. (7) Hypothyroidism (acquired): Current visit: Yes Status: Chronic Continue thyroid replacement therapy. (8) Anemia: Current visit: Yes Status: Chronic Currently with Heme + stool in patient on dual antiplatelet therapy with ASA and plavix. Iron studies checked last visit with low iron, low normal TIBC and normal ferritin. Unsure if patient's anemia is multifactorial in etiology, with anemia of chronic disease, acute illness, and acute GI blood loss. Given detection of occult blood in stool discontinued Lovenox, and increased IV PPI to BID dosing. Also initiated QID carafate. Repeat serial H/H and am Hgb remain stable. Patient is type and screened as well. Also with B12 and FA normal. History of hypothyroidism on replacement therapy without any recent TSH values at this institution - TSH checked and normal despite acute illness. Continue oral iron supplement. Monitor hemoglobin, blood pressure closely. (9) Coronary artery disease: Current visit: No Status: Chronic Appears quiescent. Currently on DAPT with ASA and Plavix, unsure of intended duration, with potential GI bleed as above. Does not appear to be on BB or statin therapy. (10) DVT prophylaxis: Current visit: Yes Status: Acute SC Lovenox discontinued in setting of potential GIB. Continue SCDs, TEDS. (11) Advance directive discussed with patient: Current visit: Yes Status: Deleted Full Code. Subjective Interval history since last seen: 67-year-old woman with a prior medical history of COPD, CAD, DM, and chronic anemia, admitted from [facility] emergency department on 03/12/2018 with a diagnosis of Pneumonia. Mrs. Ybarra initially presented to the hospital and was admitted and discharged from [facility] (03/06-03/07/2018) for acute COPD exacerbation w/ bronchitis. Her CXR showed potential infiltrates as well. She was discharged home on 5 days of Levaquin and prednisone, and review of her laboratory data reveals presence of Strep Pneumo on sputum cultures. She had been improving following discharge from the hospital, although remained dyspneic even at rest. She presented back to the emergency room with a reported cough, worsening dyspnea, and noted hypoxia, along with tachypnea, tachycardia, and fever. Repeat imaging with a CXR showed bibasilar infiltrate and lab-work revealed evidence of a leukocytosis. A subsequent CT obtained showed multi-focal infiltrates. She has remained on broad spectrum antibiotic therapy and IV Steroids with frequent nebs, with vast improvement in overall symptoms. The patient's hemoglobin was noted to drop, and further work-up revealed heme + stool. She has been maintained on IV PPI therapy and carafate, with stable Hgb without transfusion. This morning the patient reports continued improvement in her overall symptoms, not yet at baseline. She has remained afebrile since the time of admission. No overnight events reported. Exam Narrative Exam Narrative: General: Patient appears improved since prior exam, AAOX3 Neck: Supple CV: Regular, mildly tachycardic at time of exam, S1S2, No rubs, murmurs, or gallops. Pulmonary: Bibasilar crackles and rhonchi vastly improved, with diffuse wheezing vastly improved again today. Abdomen: + Bowel Sounds, soft, nontender, nondistended Vascular: No lower extremity edema Psych: Normal mood and affect. Objective Objective Clinical Data: Abnormal lab results 03/16/18 03/16/18 Range/Units 06:35 06:35 WBC 13.28 H (4.4-10.8) k/cumm RBC 2.80 L (4.00-5.20) m/cumm Hgb 8.4 L (12.0-15.5) g/dL Hct 24.6 L (36.0-46.0) % Absolute Neutrophils 10.49 H (1.2-6.7) k/cumm Absolute Monocytes 0.80 H (0.11-0.7) k/cumm Sodium 126 L (136-145) mmol/L Chloride 91 L (98-107) mmol/L Anion Gap 11.2 H (3-11) mmol/L BUN 19 H (7-18) mg/dL Glucose 214 H (70-100) mg/dL Vital Signs Temperature 36.5 C 03/16/18 16:24 Temperature Source Tympanic 03/16/18 16:24 Pulse 93 H 03/16/18 16:24 Pulse 95 H 03/16/18 10:23 Respiratory Rate 20 03/16/18 16:24 Respiratory Effort 03/16/18 13:42 Respiratory Depth Normal 03/16/18 13:42 Respiratory Pattern Normal 03/16/18 13:42 Blood Pressure 160/82 H 03/16/18 16:24 Blood Pressure Mean 99 03/16/18 10:23 Blood Pressure Position Sitting 03/15/18 15:33 Pulse Oximetry 96 03/16/18 16:24 Oxygen Delivery Method Room Air 03/16/18 16:24 Oxygen Flow Rate 0 03/16/18 16:24 Pain Level 5 03/16/18 13:38 Intake & Output 03/15/18 03/16/18 03/16/18 23:59 11:59 23:59 Intake Total 1482 / 1482 950 / 950 250 / 250 Output Total 2675 / 2675 1400 / 1400 Balance -1193 / -1193 -450 / -450 250 / 250 Weight 91.5 kg Intake: IV 450 / 450 350 / 350 Oral 1032 / 1032 600 / 600 250 / 250 Output: Urine 2674 / 2675 1400 / 1400 Other: Urine Color Yellow Urine Appearance Clear Urine Odor Normal Voiding Methods Bedside Commode Toilet Laboratory Results WBC 13.28 k/cumm (4.4-10.8) H 03/16/18 06:35 RBC 2.80 m/cumm (4.00-5.20) L 03/16/18 06:35 Hgb 8.4 g/dL (12.0-15.5) L 03/16/18 06:35 Hct 24.6 % (36.0-46.0) L 03/16/18 06:35 MCV 87.9 fL (80-95) 03/16/18 06:35 MCH 30.0 pg (27.0-33.0) 03/16/18 06:35 MCHC 34.1 g/dL (32.0-36.0) 03/16/18 06:35 RDW 12.0 % (11.7-14.6) 03/16/18 06:35 Plt Count 345 x1000/uL (130-400) 03/16/18 06:35 MPV 9.5 fL (8.0-11.0) 03/16/18 06:35 Immature Gran % See Differential 03/16/18 06:35 Neutrophils % 77.0 03/16/18 06:35 Lymphocytes % 9.0 03/16/18 06:35 Monocytes % 6.0 03/16/18 06:35 Eosinophils % 0.0 03/16/18 06:35 Basophils % 0.0 03/16/18 06:35 Absolute Neutrophils 10.49 k/cumm (1.2-6.7) H 03/16/18 06:35 Band Neutrophils 2.0 % 03/16/18 06:35 Absolute Lymphocytes 1.20 k/cumm (1.2-3.4) 03/16/18 06:35 Absolute Monocytes 0.80 k/cumm (0.11-0.7) H 03/16/18 06:35 Absolute Eosinophils 0.00 k/cumm (0.0-0.7) 03/16/18 06:35 Absolute Basophils 0.00 k/cumm (0.0-0.2) 03/16/18 06:35 Metamyelocytes 2.0 % 03/16/18 06:35 Myelocytes 4.0 % 03/16/18 06:35 Differential Comment Manual differential 03/16/18 06:35 RBC Morphology Normal 03/16/18 06:35 D-Dimer 273 ng/mlFEU (<500) 03/12/18 21:18 Sodium 126 mmol/L (136-145) L 03/16/18 06:35 Potassium 4.4 mmol/L (3.5-5.1) 03/16/18 06:35 Chloride 91 mmol/L (98-107) L 03/16/18 06:35 Carbon Dioxide 23.8 mmol/L (21.0-32.0) 03/16/18 06:35 Anion Gap 11.2 mmol/L (3-11) H 03/16/18 06:35 BUN 19 mg/dL (7-18) H 03/16/18 06:35 Creatinine 0.97 mg/dL (0.55-1.02) 03/16/18 06:35 Estimated GFR/1.73 m2 57.28 (mL/min/1.73m2) 03/16/18 06:35 Glucose 214 mg/dL (70-100) H 03/16/18 06:35 Lactate 1.2 mmol/L (0.6-1.4) 03/12/18 22:35 Calcium 8.6 mg/dL (8.5-10.1) 03/16/18 06:35 Total Bilirubin 0.4 mg/dL (0.2-1.0) 03/12/18 21:18 AST 20 U/L (15-37) 03/12/18 21:18 ALT 28 U/L (12-78) 03/12/18 21:18 Alkaline Phosphatase 66 U/L (46-116) 03/12/18 21:18 Troponin I < 0.02 ng/mL (0.00-0.06) 03/12/18 21:18 NT-Pro-B Natriuret Pep 132 pg/mL (-299) 03/12/18 21:18 Total Protein 7.2 g/dL (6.4-8.2) 03/12/18 21:18 Albumin 3.8 g/dL (3.4-5.0) 03/12/18 21:18 Vitamin B12 691 pg/mL (193-986) 03/13/18 06:28 Folate > 20.0 ng/mL (8.6-20.0) H 03/13/18 06:28 TSH 0.49 uIU/mL (0.358-3.74) 03/13/18 06:28 Vancomycin Trough 14.3 ug/mL (10.0-20.0) 03/15/18 11:35 Patient ABO/Rh A Positive 03/14/18 18:12 Antibody Screen Negative 03/14/18 18:12
[2018-03-16] MEDS: Montelukast 10 MG TAB PO (20:20)
[2018-03-16] MEDS: traZODone 100 MG TAB PO (21:58)
[2018-03-16] MEDS: rOPINIRole 0.5 MG TAB 0.25 MG PO (21:58)
[2018-03-16] MEDS: Melatonin 3 MG TAB PO (21:58)
[2018-03-16] MEDS: Gabapentin 600 MG TAB PO (21:58)
[2018-03-17 00:09] VITALS: BP 119/70; PULSE 88; RESP 20; TEMP 36.5; O2SAT 94
[2018-03-17] MEDS: CEFEPIME 2 GM in Normal Saline 100 ML IVPB ×2 (06:03→17:01)
[2018-03-17] MEDS: Levothyroxine 100 MCG TAB PO (06:03)
[2018-03-17] MEDS: Normal Saline Flush 10 ML SYR IVP ×4 (06:09→20:31)
[2018-03-17 07:19] LABS: Abs Immature Grans 0.95 k/cumm (0.0-0.09); HCT 22.9 % (36.0-46.0); HGB 7.9 g/dL (12.0-15.5); Mean Corp. HGB Concentration 34.5 g/dL (32.0-36.0); Mean Corpuscular Hemoglobin 29.9 pg (27.0-33.0); Mean Corpuscular Volume 86.7 fL (80-95); Mean Platelet Volume 9.1 fL (8.0-11.0); Platelet Count 328 x1000/uL (130-400); RBC 2.64 m/cumm (4.00-5.20); RBC Distribution Width 11.7 % (11.7-14.6); White Blood Cell Count 14.63 k/cumm (4.4-10.8)
[2018-03-17 07:29] LABS: Anion Gap 9.1 mmol/L (3-11); BUN 20 mg/dL (7-18); CO2 23.9 mmol/L (21.0-32.0); CREATININE 0.95 mg/dL (0.55-1.02); Calcium 8.3 mg/dL (8.5-10.1); Chloride 93 mmol/L (98-107); Estimated GFR 58.68 (mL/min/1.73m2); Glucose 200 mg/dL (70-100); Potassium 4.5 mmol/L (3.5-5.1); Sodium 126 mmol/L (136-145)
[2018-03-17 07:30] VITALS: BP 154/74; PULSE 80; RESP 18; TEMP 36.3; O2SAT 97
[2018-03-17 08:17] LABS: Absolute Lymphocyte Count 1.32 k/cumm (1.2-3.4); Absolute Monocyte Count 0.59 k/cumm (0.11-0.7)
[2018-03-17 08:18] LABS: Diff Comment Manual Differential; Poikilocytes 1+
[2018-03-17] MEDS: Pantoprazole 40 MG VIAL IVP ×2 (08:28→20:31)
[2018-03-17] MEDS: Insulin Aspart 300 UNITS/3 ML PEN SC ×3 (08:28→17:01)
[2018-03-17] MEDS: Multivitamin TAB 1 TAB PO (08:29)
[2018-03-17] MEDS: Ferrous Gluconate 324 MG TAB PO (08:29)
[2018-03-17] MEDS: amLODIPine 10 MG TAB PO (08:29)
[2018-03-17] MEDS: Gabapentin 300 MG CAP PO ×2 (08:29→20:32)
[2018-03-17] MEDS: Clopidogrel 75 MG TAB PO (08:29)
[2018-03-17] MEDS: DULoxetine 30 MG CAP 60 MG PO (08:30)
[2018-03-17] MEDS: Beta-Carotene(A) w/C,E, & Minerals TAB 1 TAB PO (08:30)
[2018-03-17] MEDS: Loratidine 10 MG TAB PO (08:30)
[2018-03-17] MEDS: Sucralfate 1 GM TAB PO ×4 (08:30→20:32)
[2018-03-17] MEDS: predniSONE 20 MG TAB 40 MG PO ×2 (08:30→20:33)
[2018-03-17] MEDS: Lisinopril 5 MG TAB PO (08:30)
[2018-03-17] MEDS: Calcium 600mg/Vit D 200U TAB 1 TAB PO (08:30)
[2018-03-17] MEDS: Aspirin 81 MG CHEW PO (08:30)
[2018-03-17] MEDS: Hydroxychloroquine 200 MG TAB 400 MG PO (08:30)
[2018-03-17] MEDS: oxyCODONE 5 MG TAB PO ×2 (08:40→20:32)
[2018-03-17] MEDS: Fluticasone NASAL SPRAY 16 GM BTL NS (08:40)
[2018-03-17] MEDS: Budesonide/Formoterol 160/4.5 6 GM 60 PUFF INH IH ×2 (09:25→20:43)
[2018-03-17 11:49] LABS: Vancomycin, Trough 15.4 ug/mL (10.0-20.0)
[2018-03-17] MEDS: guaiFENesin 600 MG TABCR PO (12:09)
[2018-03-17] MEDS: VANCOMYCIN 1,000 MG in Normal Saline 250 ML 166.667 MG IVPB (12:23)
--- NOTE | 2018-03-17 13:14 | PGE_ITS ---
Date of Service Date of service: 03/17/18 Time of Service: 13:12 Assessment and Plan (1) HCAP (healthcare-associated pneumonia): Current visit: Yes Status: Acute Potential infiltrate by CXR during recent hospitalization, with sputum cultures growing Strep Pneumoniae - treated with five days of Levofloxacin and steroid therapy, now with worsening infiltrates, fevers, leukocytosis, and hypoxia. Continue treatment with HCAP coverage, Day #5 of Vancomycin and Cefepime. Continue to monitor Blood and sputum Cultures - currently with jesse on sputum which is likely colonization, and with blood cultures that remain without growth. CT with reported multi-focal pneumonia. Rapid flu negative. Also appears to have concurrent COPD exacerbation, currently under treatment with steroids and frequent Nebs and improving. Not currently requiring supplemental Oxygen. (2) COPD (chronic obstructive pulmonary disease): Current visit: Yes Status: Chronic With current acute exacerbation, vastly improved. Continue treatment with Steroids and wean as able, nebs as above. On antibiotic therapy for Pneumonia as well. (3) Diabetes: Current visit: Yes Status: Chronic Holding Metformin. Continue ISS and monitor blood sugar. (4) Takotsubo cardiomyopathy: Current visit: Yes Status: Chronic Reported prior history per discussion with patient's Neurologist who has access to PCP records. ECHO without evidence of cardiomyopathy. (5) Sarcoidosis: Current visit: Yes Status: Chronic Again as per discussion with outpatient neurology - Unsure if patient has a history of documented biopsy proven Sarcoidosis, or if disease is currently in remission. CT of the chest performed and without significant abnormality other than multi-focal opacities suspicious for pneumonia. (6) Rheumatoid arthritis: Current visit: Yes Status: Chronic Currently on Hydroxychloroquine. (7) Hypothyroidism (acquired): Current visit: Yes Status: Chronic Continue thyroid replacement therapy. (8) Anemia: Current visit: Yes Status: Chronic Currently with Heme + stool in patient on dual antiplatelet therapy with ASA and plavix. Iron studies checked last visit with low iron, low normal TIBC and normal ferritin. Unsure if patient's anemia is multifactorial in etiology, with anemia of chronic disease, acute illness, and acute GI blood loss. Given detection of occult blood in stool discontinued Lovenox, and increased IV PPI to BID dosing. Also initiated QID carafate. Repeat serial H/H and am Hgb remain stable, although mildly lower. Patient is type and screened as well. Hold off on transfusion as patient is asymptomatic from a cardiac standpoint and current Hgb is >7. Also with B12 and FA normal. History of hypothyroidism on replacement therapy without any recent TSH values at this institution - TSH checked and normal despite acute illness. Continue oral iron supplement. Monitor hemoglobin, blood pressure closely. (9) Coronary artery disease: Current visit: No Status: Chronic Appears quiescent. Currently on DAPT with ASA and Plavix, unsure of intended duration, with potential GI bleed as above. Does not appear to be on BB or statin therapy. (10) DVT prophylaxis: Current visit: Yes Status: Acute SC Lovenox discontinued in setting of potential GIB. Continue SCDs, TEDS. (11) Advance directive discussed with patient: Current visit: Yes Status: Deleted Full Code. Subjective Interval history since last seen: 67-year-old woman with a prior medical history of COPD, CAD, DM, and chronic anemia, admitted from [facility] emergency department on 03/12/2018 with a diagnosis of Pneumonia. Mrs. Ybarra initially presented to the hospital and was admitted and discharged from [facility] (03/06-03/07/2018) for acute COPD exacerbation w/ bronchitis. Her CXR showed potential infiltrates as well. She was discharged home on 5 days of Levaquin and prednisone, and review of her laboratory data reveals presence of Strep Pneumo on sputum cultures. She had been improving following discharge from the hospital, although remained dyspneic even at rest. She presented back to the emergency room with a reported cough, worsening dyspnea, and noted hypoxia, along with tachypnea, tachycardia, and fever. Repeat imaging with a CXR showed bibasilar infiltrate and lab-work revealed evidence of a leukocytosis. A subsequent CT obtained showed multi-focal infiltrates. She has remained on broad spectrum antibiotic therapy and IV Steroids with frequent nebs, with vast improvement in overall symptoms. The patient's hemoglobin was noted to drop during the initial part of her hospital course, and further work-up revealed heme + stool. She has been maintained on IV PPI therapy and carafate, with stable Hgb without transfusion. This morning the patient reports continued improvement in her overall symptoms, not yet at baseline. She has remained afebrile since the time of admission. No overnight events reported. Exam Narrative Exam Narrative: General: Patient appears improved since prior exam, AAOX3 Neck: Supple CV: Regular, no longer tachycardic, S1S2, No rubs, murmurs, or gallops. Pulmonary: No further crackles or rhonchi, with minimal wheezing vastly improved again today. Abdomen: + Bowel Sounds, soft, nontender, nondistended Vascular: No lower extremity edema Psych: Normal mood and affect. Objective Objective Clinical Data: Abnormal lab results 03/17/18 03/17/18 Range/Units 06:38 06:38 WBC 14.63 H (4.4-10.8) k/cumm RBC 2.64 L (4.00-5.20) m/cumm Hgb 7.9 L (12.0-15.5) g/dL Hct 22.9 L (36.0-46.0) % Absolute Neutrophils 11.70 H (1.2-6.7) k/cumm Sodium 126 L (136-145) mmol/L Chloride 93 L (98-107) mmol/L BUN 20 H (7-18) mg/dL Glucose 200 H (70-100) mg/dL Calcium 8.3 L (8.5-10.1) mg/dL Vital Signs Temperature 36.3 C L 03/17/18 07:30 Temperature Source Tympanic 03/17/18 07:30 Pulse 80 03/17/18 07:30 Pulse Rhythm Regular 03/17/18 09:02 Pulse 95 H 03/16/18 10:23 Respiratory Rate 18 03/17/18 07:30 Respiratory Effort 03/17/18 09:02 Respiratory Depth Normal 03/17/18 09:02 Respiratory Pattern Normal 03/17/18 09:02 Blood Pressure 154/74 H 03/17/18 07:30 Blood Pressure Mean 99 03/16/18 10:23 Blood Pressure Position Sitting 03/15/18 15:33 Pulse Oximetry 97 03/17/18 07:30 Oxygen Delivery Method Room Air 03/17/18 07:30 Oxygen Flow Rate 0 03/17/18 07:30 Pain Level 5 03/17/18 08:40 Intake & Output 03/16/18 03/17/18 03/17/18 23:59 11:59 23:59 Intake Total 730 / 730 600 / 600 250 / 250 Balance 730 / 730 600 / 600 250 / 250 Weight 90.4 kg Intake: IV 360 / 360 350 / 350 Oral 370 / 370 250 / 250 250 / 250 Other: Comment pt gets up AD MOE to void. Voiding Methods Toilet Laboratory Results WBC 14.63 k/cumm (4.4-10.8) H 03/17/18 06:38 RBC 2.64 m/cumm (4.00-5.20) L 03/17/18 06:38 Hgb 7.9 g/dL (12.0-15.5) L 03/17/18 06:38 Hct 22.9 % (36.0-46.0) L 03/17/18 06:38 MCV 86.7 fL (80-95) 03/17/18 06:38 MCH 29.9 pg (27.0-33.0) 03/17/18 06:38 MCHC 34.5 g/dL (32.0-36.0) 03/17/18 06:38 RDW 11.7 % (11.7-14.6) 03/17/18 06:38 Plt Count 328 x1000/uL (130-400) 03/17/18 06:38 MPV 9.1 fL (8.0-11.0) 03/17/18 06:38 Immature Gran % See Differential 03/17/18 06:38 Neutrophils % 78.0 03/17/18 06:38 Lymphocytes % 9.0 03/17/18 06:38 Monocytes % 4.0 03/17/18 06:38 Eosinophils % 0.0 03/17/18 06:38 Basophils % 0.0 03/17/18 06:38 Absolute Neutrophils 11.70 k/cumm (1.2-6.7) H 03/17/18 06:38 Band Neutrophils 2.0 % 03/17/18 06:38 Absolute Lymphocytes 1.32 k/cumm (1.2-3.4) 03/17/18 06:38 Absolute Monocytes 0.59 k/cumm (0.11-0.7) 03/17/18 06:38 Absolute Eosinophils 0.00 k/cumm (0.0-0.7) 03/17/18 06:38 Absolute Basophils 0.00 k/cumm (0.0-0.2) 03/17/18 06:38 Metamyelocytes 2.0 % 03/17/18 06:38 Myelocytes 5.0 % 03/17/18 06:38 Differential Comment Manual differential 03/17/18 06:38 RBC Morphology See below 03/17/18 06:38 Poikilocytosis 1+ 03/17/18 06:38 D-Dimer 273 ng/mlFEU (<500) 03/12/18 21:18 Sodium 126 mmol/L (136-145) L 03/17/18 06:38 Potassium 4.5 mmol/L (3.5-5.1) 03/17/18 06:38 Chloride 93 mmol/L (98-107) L 03/17/18 06:38 Carbon Dioxide 23.9 mmol/L (21.0-32.0) 03/17/18 06:38 Anion Gap 9.1 mmol/L (3-11) 03/17/18 06:38 BUN 20 mg/dL (7-18) H 03/17/18 06:38 Creatinine 0.95 mg/dL (0.55-1.02) 03/17/18 06:38 Estimated GFR/1.73 m2 58.68 (mL/min/1.73m2) 03/17/18 06:38 Glucose 200 mg/dL (70-100) H 03/17/18 06:38 Lactate 1.2 mmol/L (0.6-1.4) 03/12/18 22:35 Calcium 8.3 mg/dL (8.5-10.1) L 03/17/18 06:38 Total Bilirubin 0.4 mg/dL (0.2-1.0) 03/12/18 21:18 AST 20 U/L (15-37) 03/12/18 21:18 ALT 28 U/L (12-78) 03/12/18 21:18 Alkaline Phosphatase 66 U/L (46-116) 03/12/18 21:18 Troponin I < 0.02 ng/mL (0.00-0.06) 03/12/18 21:18 NT-Pro-B Natriuret Pep 132 pg/mL (-299) 03/12/18 21:18 Total Protein 7.2 g/dL (6.4-8.2) 03/12/18 21:18 Albumin 3.8 g/dL (3.4-5.0) 03/12/18 21:18 Vitamin B12 691 pg/mL (193-986) 03/13/18 06:28 Folate > 20.0 ng/mL (8.6-20.0) H 03/13/18 06:28 TSH 0.49 uIU/mL (0.358-3.74) 03/13/18 06:28 Vancomycin Trough 15.4 ug/mL (10.0-20.0) 03/17/18 11:08 Patient ABO/Rh A Positive 03/14/18 18:12 Antibody Screen Negative 03/14/18 18:12
--- NOTE | 2018-03-17 14:27 | PDOC.CMPRO ---
- If Service Date Differs Date of service: 03/17/18 Time of Service: 14:28 Care Management Progress Note S/O: Deborah is lying in bed this morning when this technical report writer visits. She continues to state that she wants to go home as soon as she can. Deborah discusses missing her dog and wanting to return home so that she can see her dog. Deborah continues on IV antibiotics at this time. Reviewed care management role and DC plan which is unchanged at this time. A: Deborah is a 67 year old female who was readmitted 03/12/18 with HCAP. P: Deborah will be discharged home when medically stable with no additional services anticipated at this time. Deborah will transport home via private vehicle with her sister, Imani, at time of discharge. CM to continue to provide support to patient, family, care team regarding discharge planning and disposition.
[2018-03-17 15:44] VITALS: BP 151/81; PULSE 90; RESP 18; TEMP 37.1; O2SAT 97
[2018-03-17] MEDS: Montelukast 10 MG TAB PO (20:32)
[2018-03-17] MEDS: Melatonin 3 MG TAB PO (21:38)
[2018-03-17] MEDS: traZODone 100 MG TAB PO (21:38)
[2018-03-17] MEDS: rOPINIRole 0.5 MG TAB 0.25 MG PO (21:39)
[2018-03-17] MEDS: Gabapentin 600 MG TAB PO (21:39)
[2018-03-18] MEDS: guaiFENesin 600 MG TABCR PO ×2 (00:25→11:42)
[2018-03-18] MEDS: VANCOMYCIN 1,000 MG in Normal Saline 250 ML 166 MG IVPB (00:25)
[2018-03-18] MEDS: Normal Saline Flush 10 ML SYR IVP ×3 (00:25→10:47)
[2018-03-18 02:21] VITALS: BP 144/66; PULSE 74; RESP 20; TEMP 36; O2SAT 95
[2018-03-18] MEDS: CEFEPIME 2 GM in Normal Saline 100 ML IVPB (06:22)
[2018-03-18] MEDS: Levothyroxine 100 MCG TAB PO (06:22)
[2018-03-18 07:23] LABS: HCT 23.8 % (36.0-46.0); HGB 8.1 g/dL (12.0-15.5); Mean Corpuscular Hemoglobin 29.9 pg (27.0-33.0); Mean Corpuscular Volume 87.8 fL (80-95); Mean Platelet Volume 9.1 fL (8.0-11.0); Platelet Count 349 x1000/uL (130-400); RBC 2.71 m/cumm (4.00-5.20); RBC Distribution Width 11.8 % (11.7-14.6); White Blood Cell Count 17.86 k/cumm (4.4-10.8)
[2018-03-18 07:30] VITALS: BP 139/65; PULSE 75; RESP 18; TEMP 36.8; O2SAT 97
[2018-03-18 07:35] VITALS: O2SAT 95
[2018-03-18 07:36] LABS: Anion Gap 9.2 mmol/L (3-11); BUN 21 mg/dL (7-18); CO2 23.8 mmol/L (21.0-32.0); CREATININE 0.94 mg/dL (0.55-1.02); Calcium 8.4 mg/dL (8.5-10.1); Chloride 96 mmol/L (98-107); Glucose 202 mg/dL (70-100); Potassium 4.4 mmol/L (3.5-5.1); Sodium 129 mmol/L (136-145)
[2018-03-18] MEDS: Budesonide/Formoterol 160/4.5 6 GM 60 PUFF INH IH (07:37)
[2018-03-18] MEDS: Sucralfate 1 GM TAB PO ×3 (07:41→17:18)
[2018-03-18] MEDS: Fluticasone NASAL SPRAY 16 GM BTL NS (08:03)
[2018-03-18] MEDS: Insulin Aspart 300 UNITS/3 ML PEN SC ×3 (08:04→17:18)
[2018-03-18] MEDS: Loratidine 10 MG TAB PO (08:05)
[2018-03-18] MEDS: Clopidogrel 75 MG TAB PO (08:05)
[2018-03-18] MEDS: Multivitamin TAB 1 TAB PO (08:05)
[2018-03-18] MEDS: Gabapentin 300 MG CAP PO (08:05)
[2018-03-18] MEDS: amLODIPine 10 MG TAB PO (08:05)
[2018-03-18] MEDS: DULoxetine 30 MG CAP 60 MG PO (08:05)
[2018-03-18] MEDS: Ferrous Gluconate 324 MG TAB PO (08:05)
[2018-03-18] MEDS: Hydroxychloroquine 200 MG TAB 400 MG PO (08:05)
[2018-03-18] MEDS: Beta-Carotene(A) w/C,E, & Minerals TAB 1 TAB PO (08:05)
[2018-03-18] MEDS: Pantoprazole 40 MG VIAL IVP (08:05)
[2018-03-18] MEDS: Calcium 600mg/Vit D 200U TAB 1 TAB PO (08:05)
[2018-03-18] MEDS: predniSONE 20 MG TAB 40 MG PO (08:05)
[2018-03-18] MEDS: Lisinopril 5 MG TAB PO (08:05)
[2018-03-18] MEDS: Aspirin 81 MG CHEW PO (08:05)
[2018-03-18 08:21] LABS: Absolute Eosinophil Count 0.18 k/cumm (0.0-0.7); Absolute Lymphocyte Count 1.25 k/cumm (1.2-3.4); Absolute Monocyte Count 0.36 k/cumm (0.11-0.7); Absolute Neutrophil Count 15.54 k/cumm (1.2-6.7); Diff Comment Manual Differential
--- NOTE | 2018-03-18 13:29 | W.PM.DS.N ---
Date of service: 03/18/18 Time of Service: 13:29 DS: Diagnosis Discharge Diagnosis (1) HCAP (healthcare-associated pneumonia): Status: Acute (2) COPD (chronic obstructive pulmonary disease): Status: Chronic (3) Diabetes: Status: Chronic (4) Takotsubo cardiomyopathy: Status: Chronic (5) Sarcoidosis: Status: Chronic (6) Rheumatoid arthritis: Status: Chronic (7) Hypothyroidism (acquired): Status: Chronic (8) Anemia: Status: Chronic (9) Coronary artery disease: Status: Chronic (10) DVT prophylaxis: Status: Acute (11) Advance directive discussed with patient: Status: Deleted Discharge Plan Disposition Patient Disposition: HOME Condition: Good Discharge Details Reason For Visit: HCAP Admit Date/Time: 03/12/18 22:45 Admit Provider: Silvio Pablo Attending Provider: Silvio Pablo Primary Care Provider: Adilene Lester Hospital Course Hospital Course: 67-year-old female with a history of coronary artery disease, diabetes, smoking, rheumatoid arthritis, and COPD who was recently admitted for community acquired pneumonia 03/06 to 03/07/18 and COPD exacerbation and treated with levofloxacin and prednisone for 5 days, presenting with worsening dyspnea and cough. Evaluation in the emergency room showed bibasilar pneumonia. She was readmitted and treated for healthcare associated pneumonia confirmed on CT scan and ongoing COPD exacerbation with vancomycin, cefepime, and IV methylprednisolone. Patient was initially cared for in the ICU, but gradually improved. Her sputum cultures grew strep pneumonia. She was discharged without additional antibiotics after a 6-day course of vancomycin and cefepime. She was given a prolonged steroid taper and her home inhalers. Ends to quit smoking, and had not smoked since her first admission on March 06. After discussion, she was given a prescription for Chantix starting pack as this helped her in the past. Of note, history of sarcoidosis and record, but CT chest did not show findings consistent with this diagnosis. Has a chronic anemia. Recent iron studies showed a transferrin saturation of 8%. She also likely has a degree of anemia of chronic disease with her rheumatoid arthritis, and she is on hydroxychloroquine. She did have an occult blood that was positive. With her steroid use, she was treated with twice daily proton pump inhibitor. A dose of 300 mg IV iron sucrose was given the day of discharge, given she has been on oral iron and her iron stores remain low with significant anemia. Her hemoglobin was stable for 3 days prior to discharge. Additional monitoring and possible IV iron as an outpatient per primary care. The patient was on dual antiplatelet therapy. We have history noted of Takotsubo cardiomyopathy, but normal echocardiogram. Patient denies history of stenting, and we have no history of stroke or peripheral artery disease. Given occult blood positive as above, the clopidogrel was stopped, and she was continued on aspirin. Home Meds and New Rx's Prescriptions: New gabapentin [Neurontin] 600 mg Tablet 600 mg PO HS Qty: 0 RF: 0 ipratropium-albuterol 0.5 mg-3 mg(2.5 mg base)/3 mL Solution For Nebulization 3 ml UPD Q4H PRN PRNQty: 0 RF: 0 levothyroxine 100 mcg Tablet 100 mcg PO DAILY@0600 Qty: 0 RF: 0 gabapentin 300 mg Capsule 300 mg PO BID Qty: 0 RF: 0 hydroxychloroquine 200 mg Tablet 400 mg PO DAILY Qty: 0 RF: 0 melatonin 3 mg Tablet Extended Release 3 mg PO HS Qty: 0 RF: 0 prednisone 20 mg Tablet See Label Instructions .ROUTE .COMPLEX Qty: 20 RF: 0 sucralfate 1 gram Tablet 1 g PO AC & HS Qty: 120 RF: 0 trazodone 100 mg Tablet 100 mg PO HS Qty: 0 RF: 0 ropinirole 0.5 mg Tablet 0.25 mg PO HS Qty: 0 RF: 0 fluticasone 50 mcg/actuation [place],Suspension NS DAILY Qty: 0 RF: 0 tiotropium bromide [Spiriva with HandiHaler] 18 mcg Capsule, W/Inhalation Device 1 cap Inhalation DAILY Qty: 0 RF: 2 varenicline [Chantix Starting Month Box] 0.5 mg (11)- 1 mg (42) tablets,dose pack 1 dose pk PO DAILY Qty: 1 RF: 0 Continue ferrous gluconate 324 mg (36 mg iron) tablet 324 mg PO DAILY RF: 0 blood-glucose meter [FreeStyle Lite Meter] kit .ROUTE .MEDSUPPLY Qty: 1 RF: 0 amlodipine 10 mg tablet 10 mg PO DAILY RF: 0 aspirin 81 mg tablet,chewable 81 mg PO DAILY RF: 0 duloxetine 60 mg capsule,delayed release(DR/EC) 60 mg PO DAILY RF: 0 budesonide-formoterol [Symbicort] 160-4.5 mcg/actuation HFA aerosol inhaler 2 puff IH BID RF: 0 metformin 500 mg tablet 500 mg PO DAILY RF: 0 nitroglycerin [Nitrostat] 0.4 mg tablet, sublingual 0.4 mg SL ONCE RF: 0 multivitamin tablet 1 tab PO DAILY RF: 0 loratadine 10 mg tablet,disintegrating 10 mg PO DAILY RF: 0 meclizine 12.5 mg tablet 12.5 mg PO TID PRNRF: 0 calcium carbonate-vitamin D3 [Calcium 600 with Vitamin D3] 600 mg(1,500mg) -200 unit tablet 1 tab PO DAILY RF: 0 montelukast [Singulair] 10 mg tablet 10 mg PO QPM RF: 0 lisinopril 5 mg tablet 5 mg PO DAILY RF: 0 Changed pantoprazole 40 mg tablet,delayed release (DR/EC) 40 mg PO BID Qty: 60 RF: 1 Discontinued clopidogrel 75 mg tablet 75 mg PO DAILY RF: 0 [id number] [Cerovite Senior] tablet 1 tab PO DAILY RF: 0 No Action gabapentin 300 mg capsule 300 mg PO BID RF: 0 fluticasone 50 mcg/actuation spray,suspension 1 spray JAKOB DAILY RF: 0 gabapentin 600 MG tablet 600 mg PO .QHS RF: 0 sumatriptan succinate 100 MG tablet 100 mg PO PRN PRNRF: 0 hydroxychloroquine 200 MG tablet 400 mg PO DAILY RF: 0 levothyroxine 100 MCG recon soln 112 mcg PO DAILY RF: 0 trazodone 100 MG tablet 100 mg PO .QHS RF: 0 albuterol sulfate [Ventolin HFA] 8 GM HFA aerosol inhaler 2 puff Inhalation .Q4HR PRNRF: 0 ipratropium-albuterol 0.5 mg-3 mg(2.5 mg base)/3 mL Solution For Nebulization 3 ml UPD Q6H Qty: 100 RF: 0 guaifenesin [Mucinex] 600 mg tablet extended release 12hr 600 mg PO Q12H Qty: 10 RF: 0 levofloxacin 500 mg tablet 500 mg PO DAILY Qty: 5 RF: 0 prednisone 20 mg tablet See Label Instructions .ROUTE .COMPLEX Qty: 12 RF: 0 benzonatate [Tessalon Perles] 100 mg capsule 100 mg PO TID PRN (Reason: cough) Qty: 30 RF: 0 tiotropium bromide [Spiriva with HandiHaler] 18 MCG capsule, w/inhalation device 18 mcg Inhalation DAILY RF: 0 ropinirole 0.5 MG tablet 0.25 mg PO DIRECTED RF: 0 Discharge Instructions Instructions: Hospital Acquired Pneumonia (DC) Additional Instructions: Take prednisone as directed starting tomorrow You can start the chantix whenever you like Do not take any more levofloxacin Activity:: Activity as Tolerated Equipment/Supplies:: No Equipment Needed Diet:: Carb Counting Discharge Orders Discharge Orders: Discharge Order (Routine); Ordered 03/18/18 Ordered By: Daron Reed Discharge Data Discharge Date/Time-TO BE ENTERED AT DEPARTURE: 03/18/18 13:28 DS: Summary Time spent discussing smoking cessation with patient: 3 to 10 minutes Time Spent with Patient Greater than 30 minutes Exam Narrative Exam Narrative: General: AAOX3, speaking in full sentences, no acute distress CV: Regular, not tachycardic, S1S2, No rubs, murmurs, or gallops. Pulmonary: No further crackles or rhonchi, diffusely diminished breath sounds, but not wheezing and normal effort. Abdomen: + Bowel Sounds, soft, nontender, nondistended Vascular: No lower extremity edema, nontender Psych: Normal mood and affect. DS: Data Vitals/I&O Vitals and I&O: Vital Signs Temperature 36.8 C 03/18/18 07:30 Temperature Source Tympanic 03/18/18 07:30 Pulse 75 03/18/18 07:30 Pulse Rhythm Regular 03/18/18 07:33 Pulse 95 H 03/16/18 10:23 Respiratory Rate 18 03/18/18 07:30 Respiratory Effort 03/18/18 07:33 Respiratory Depth Normal 03/18/18 07:33 Respiratory Pattern Normal 03/18/18 07:33 Blood Pressure 139/65 03/18/18 07:30 Blood Pressure Mean 99 03/16/18 10:23 Blood Pressure Position Sitting 03/15/18 15:33 Pulse Oximetry 95 03/18/18 07:35 Oxygen Delivery Method Room Air 03/18/18 07:35 Oxygen Flow Rate 0 03/18/18 07:35 Pain Level 0 03/18/18 07:30 Intake & Output 03/17/18 03/18/1818 23:59 11:59 23:59 Intake Total 1230 / 1230 1260 / 1260 115 / 115 Balance 1230 / 1230 1260 / 1260 115 / 115 Weight 87.8 kg Intake: IV 350 / 350 350 / 350 115 / 115 Oral 880 / 880 910 / 910 Other: Comment Void x 3 reported, Ind. in room. Voiding Methods Toilet Toilet Labs on day of discharge: Labs from last 24 hours 03/18/18 03/18/18 06:50 06:50 WBC 17.86 H RBC 2.71 L Hgb 8.1 L Hct 23.8 L MCV 87.8 MCH 29.9 MCHC 34.0 RDW 11.8 Plt Count 349 MPV 9.1 Immature Gran % See Differential Neutrophils % 80.0 Lymphocytes % 7.0 Monocytes % 2.0 Eosinophils % 1.0 Basophils % 0.0 Absolute Neutrophils 15.54 H Band Neutrophils 7.0 Absolute Lymphocytes 1.25 Absolute Monocytes 0.36 Absolute Eosinophils 0.18 Absolute Basophils 0.00 Metamyelocytes 2.0 Myelocytes 1.0 Differential Comment Manual differential Sodium 129 L Potassium 4.4 Chloride 96 L Carbon Dioxide 23.8 Anion Gap 9.2 BUN 21 H Creatinine 0.94 Estimated GFR/1.73 m2 59.40 Glucose 202 H Calcium 8.4 L PFSH Medical History Sarcoidosis (Chronic) Takotsubo cardiomyopathy (Chronic) Depression (Chronic) Rheumatoid arthritis (Chronic) Hypothyroidism (acquired) (Chronic) Anemia (Chronic) Coronary artery disease (Chronic) COPD (chronic obstructive pulmonary disease) (Chronic) Hypertension (Chronic) Diabetes (Chronic) Myocardial infarct (Chronic) Social History household members: family housing: other details: lives w/ her sister in [place], [place] number of children: 2 Smoking/Tobacco Use Status: Current every day tobacco type: cigarettes alcohol intake: current alcohol intake frequency: holidays/special occasions only Alcohol type: wine substance use type: does not use Surgical History H/O tubal ligation (Resolved) History of cholecystectomy (Resolved) History of total knee arthroplasty (Resolved) Hx of cardiac cath (Resolved) S/P appendectomy (Resolved)
--- NOTE | 2018-03-18 13:32 | DSE_ITS ---
Date of service: 03/18/18 Time of Service: 13:29 DS: Diagnosis Discharge Diagnosis (1) HCAP (healthcare-associated pneumonia): Status: Acute (2) COPD (chronic obstructive pulmonary disease): Status: Chronic (3) Diabetes: Status: Chronic (4) Takotsubo cardiomyopathy: Status: Chronic (5) Sarcoidosis: Status: Chronic (6) Rheumatoid arthritis: Status: Chronic (7) Hypothyroidism (acquired): Status: Chronic (8) Anemia: Status: Chronic (9) Coronary artery disease: Status: Chronic (10) DVT prophylaxis: Status: Acute (11) Advance directive discussed with patient: Status: Deleted Discharge Plan Disposition Patient Disposition: HOME Condition: Good Discharge Details Reason For Visit: HCAP Admit Date/Time: 03/12/18 22:45 Admit Provider: Silvio Pablo Attending Provider: Silvio Pablo Primary Care Provider: Adilene Lester Hospital Course Hospital Course: 67-year-old female with a history of coronary artery disease, diabetes, smoking , rheumatoid arthritis, and COPD who was recently admitted for community acquired pneumonia 03/06 to 03/07/18 and COPD exacerbation and treated with levofloxacin and prednisone for 5 days, presenting with worsening dyspnea and cough. Evaluation in the emergency room showed bibasilar pneumonia. She was readmitted and treated for healthcare associated pneumonia confirmed on CT scan and ongoing COPD exacerbation with vancomycin, cefepime, and IV methylprednisolone. Patient was initially cared for in the ICU, but gradually improved. Her sputum cultures grew strep pneumonia. She was discharged without additional antibiotics after a 6-day course of vancomycin and cefepime. She was given a prolonged steroid taper and her home inhalers. Ends to quit smoking, and had not smoked since her first admission on March 06. After discussion, she was given a prescription for Chantix starting pack as this helped her in the past. Of note, history of sarcoidosis and record, but CT chest did not show findings consistent with this diagnosis. Has a chronic anemia. Recent iron studies showed a transferrin saturation of 8% . She also likely has a degree of anemia of chronic disease with her rheumatoid arthritis, and she is on hydroxychloroquine. She did have an occult blood that was positive. With her steroid use, she was treated with twice daily proton pump inhibitor. A dose of 300 mg IV iron sucrose was given the day of discharge, given she has been on oral iron and her iron stores remain low with significant anemia. Her hemoglobin was stable for 3 days prior to discharge. Additional monitoring and possible IV iron as an outpatient per primary care. The patient was on dual antiplatelet therapy. We have history noted of Takotsubo cardiomyopathy, but normal echocardiogram. Patient denies history of stenting, and we have no history of stroke or peripheral artery disease. Given occult blood positive as above, the clopidogrel was stopped, and she was continued on aspirin. Home Meds and New Rx's Prescriptions: New gabapentin [Neurontin] 600 mg Tablet 600 mg PO HS Qty: 0 RF: 0 ipratropium-albuterol 0.5 mg-3 mg(2.5 mg base)/3 mL Solution For Nebulization 3 ml UPD Q4H PRN PRNQty: 0 RF: 0 levothyroxine 100 mcg Tablet 100 mcg PO DAILY@0600 Qty: 0 RF: 0 gabapentin 300 mg Capsule 300 mg PO BID Qty: 0 RF: 0 hydroxychloroquine 200 mg Tablet 400 mg PO DAILY Qty: 0 RF: 0 melatonin 3 mg Tablet Extended Release 3 mg PO HS Qty: 0 RF: 0 prednisone 20 mg Tablet See Label Instructions .ROUTE .COMPLEX Qty: 20 RF: 0 sucralfate 1 gram Tablet 1 g PO AC & HS Qty: 120 RF: 0 trazodone 100 mg Tablet 100 mg PO HS Qty: 0 RF: 0 ropinirole 0.5 mg Tablet 0.25 mg PO HS Qty: 0 RF: 0 fluticasone 50 mcg/actuation Currie,Suspension NS DAILY Qty: 0 RF: 0 tiotropium bromide [Spiriva with HandiHaler] 18 mcg Capsule, W/Inhalation Device 1 cap Inhalation DAILY Qty: 0 RF: 2 varenicline [Chantix Starting Month Box] 0.5 mg (11)- 1 mg (42) tablets,dose pack 1 dose pk PO DAILY Qty: 1 RF: 0 Continue ferrous gluconate 324 mg (36 mg iron) tablet 324 mg PO DAILY RF: 0 blood-glucose meter [FreeStyle Lite Meter] kit .ROUTE .MEDSUPPLY Qty: 1 RF: 0 amlodipine 10 mg tablet 10 mg PO DAILY RF: 0 aspirin 81 mg tablet,chewable 81 mg PO DAILY RF: 0 duloxetine 60 mg capsule,delayed release(DR/EC) 60 mg PO DAILY RF: 0 budesonide-formoterol [Symbicort] 160-4.5 mcg/actuation HFA aerosol inhaler 2 puff IH BID RF: 0 metformin 500 mg tablet 500 mg PO DAILY RF: 0 nitroglycerin [Nitrostat] 0.4 mg tablet, sublingual 0.4 mg SL ONCE RF: 0 multivitamin tablet 1 tab PO DAILY RF: 0 loratadine 10 mg tablet,disintegrating 10 mg PO DAILY RF: 0 meclizine 12.5 mg tablet 12.5 mg PO TID PRNRF: 0 calcium carbonate-vitamin D3 [Calcium 600 with Vitamin D3] 600 mg(1,500mg) - 200 unit tablet 1 tab PO DAILY RF: 0 montelukast [Singulair] 10 mg tablet 10 mg PO QPM RF: 0 lisinopril 5 mg tablet 5 mg PO DAILY RF: 0 Changed pantoprazole 40 mg tablet,delayed release (DR/EC) 40 mg PO BID Qty: 60 RF: 1 Discontinued clopidogrel 75 mg tablet 75 mg PO DAILY RF: 0 [id number]-[id number] [Cerovite Senior] tablet 1 tab PO DAILY RF: 0 No Action gabapentin 300 mg capsule 300 mg PO BID RF: 0 fluticasone 50 mcg/actuation spray,suspension 1 spray JAKOB DAILY RF: 0 gabapentin 600 MG tablet 600 mg PO .QHS RF: 0 sumatriptan succinate 100 MG tablet 100 mg PO PRN PRNRF: 0 hydroxychloroquine 200 MG tablet 400 mg PO DAILY RF: 0 levothyroxine 100 MCG recon soln 112 mcg PO DAILY RF: 0 trazodone 100 MG tablet 100 mg PO .QHS RF: 0 albuterol sulfate [Ventolin HFA] 8 GM HFA aerosol inhaler 2 puff Inhalation .Q4HR PRNRF: 0 ipratropium-albuterol 0.5 mg-3 mg(2.5 mg base)/3 mL Solution For Nebulization 3 ml UPD Q6H Qty: 100 RF: 0 guaifenesin [Mucinex] 600 mg tablet extended release 12hr 600 mg PO Q12H Qty: 10 RF: 0 levofloxacin 500 mg tablet 500 mg PO DAILY Qty: 5 RF: 0 prednisone 20 mg tablet See Label Instructions .ROUTE .COMPLEX Qty: 12 RF: 0 benzonatate [Tessalon Perles] 100 mg capsule 100 mg PO TID PRN (Reason: cough) Qty: 30 RF: 0 tiotropium bromide [Spiriva with HandiHaler] 18 MCG capsule, w/inhalation device 18 mcg Inhalation DAILY RF: 0 ropinirole 0.5 MG tablet 0.25 mg PO DIRECTED RF: 0 Discharge Instructions Instructions: Hospital Acquired Pneumonia (DC) Additional Instructions: * Take prednisone as directed starting tomorrow * You can start the chantix whenever you like * Do not take any more levofloxacin Activity:: Activity as Tolerated Equipment/Supplies:: No Equipment Needed Diet:: Carb Counting Discharge Orders Discharge Orders: Discharge Order (Routine); Ordered 03/18/18 Ordered By: Daron Reed Discharge Data Discharge Date/Time-TO BE ENTERED AT DEPARTURE: 03/18/18 13:28 DS: Summary Time spent discussing smoking cessation with patient: 3 to 10 minutes Time Spent with Patient Greater than 30 minutes Exam Narrative Exam Narrative: General: AAOX3, speaking in full sentences, no acute distress CV: Regular, not tachycardic, S1S2, No rubs, murmurs, or gallops. Pulmonary: No further crackles or rhonchi, diffusely diminished breath sounds, but not wheezing and normal effort. Abdomen: + Bowel Sounds, soft, nontender, nondistended Vascular: No lower extremity edema, nontender Psych: Normal mood and affect. DS: Data Vitals/I&O Vitals and I&O: Vital Signs Temperature 36.8 C 03/18/18 07:30 Temperature Source Tympanic 03/18/18 07:30 Pulse 75 03/18/18 07:30 Pulse Rhythm Regular 03/18/18 07:33 Pulse 95 H 03/16/18 10:23 Respiratory Rate 18 03/18/18 07:30 Respiratory Effort 03/18/18 07:33 Respiratory Depth Normal 03/18/18 07:33 Respiratory Pattern Normal 03/18/18 07:33 Blood Pressure 139/65 03/18/18 07:30 Blood Pressure Mean 99 03/16/18 10:23 Blood Pressure Position Sitting 03/15/18 15:33 Pulse Oximetry 95 03/18/18 07:35 Oxygen Delivery Method Room Air 03/18/18 07:35 Oxygen Flow Rate 0 03/18/18 07:35 Pain Level 0 03/18/18 07:30 Intake & Output 1103/18/18 03/18/18 23:59 11:59 23:59 Intake Total 1230 / 1230 1260 / 1260 115 / 115 Balance 1230 / 1230 1260 / 1260 115 / 115 Weight 87.8 kg Intake: IV 350 / 350 350 / 350 115 / 115 Oral 880 / 880 910 / 910 Other: Comment Void x 3 reported, Ind. in room. Voiding Methods Toilet Toilet Labs on day of discharge: Labs from last 24 hours 03/18/18 03/18/18 06:50 06:50 WBC 17.86 H RBC 2.71 L Hgb 8.1 L Hct 23.8 L MCV 87.8 MCH 29.9 MCHC 34.0 RDW 11.8 Plt Count 349 MPV 9.1 Immature Gran % See Differential Neutrophils % 80.0 Lymphocytes % 7.0 Monocytes % 2.0 Eosinophils % 1.0 Basophils % 0.0 Absolute Neutrophils 15.54 H Band Neutrophils 7.0 Absolute Lymphocytes 1.25 Absolute Monocytes 0.36 Absolute Eosinophils 0.18 Absolute Basophils 0.00 Metamyelocytes 2.0 Myelocytes 1.0 Differential Comment Manual differential Sodium 129 L Potassium 4.4 Chloride 96 L Carbon Dioxide 23.8 Anion Gap 9.2 BUN 21 H Creatinine 0.94 Estimated GFR/1.73 m2 59.40 Glucose 202 H Calcium 8.4 L PFSH Medical History Sarcoidosis (Chronic) Takotsubo cardiomyopathy (Chronic) Depression (Chronic) Rheumatoid arthritis (Chronic) Hypothyroidism (acquired) (Chronic) Anemia (Chronic) Coronary artery disease (Chronic) COPD (chronic obstructive pulmonary disease) (Chronic) Hypertension (Chronic) Diabetes (Chronic) Myocardial infarct (Chronic) Social History household members: family housing: other details: lives w/ her sister in [place], [place] number of children: 2 Smoking/Tobacco Use Status: Current every day tobacco type: cigarettes alcohol intake: current alcohol intake frequency: holidays/special occasions only Alcohol type: wine substance use type: does not use Surgical History H/O tubal ligation (Resolved) History of cholecystectomy (Resolved) History of total knee arthroplasty (Resolved) Hx of cardiac cath (Resolved) S/P appendectomy (Resolved)
--- NOTE | 2018-03-18 14:40 | PDOC.CMDIS ---
- If Service Date Differs Date of service: 03/18/18 Time of Service: 14:40 LACE Index Scoring Tool - Questions: Length of Stay (in days): 7 - 13 Acuity (Admit via E.D.?): Yes Comorbidities: Diabetes w/o Complication, Chronic Pulmonary Disease E.D. Visits: 3 - Answers: Total Score: 14 Risk of Readmission: High Risk Care Management Discharge Reason for Hospitalization: HCAP Discharge Plan: Deborah will return home with her sister Imani today with no services. She will F/U with PCP and plan of care as prescribed. Deborah's family to transport. Patient/Family Education Needs: Review DC instructions, any limitations, and discuss 'Ask me three'
--- NOTE | 2018-03-18 15:09 | CHAPLAIN ---
Deborah was coloring pictures when I visited. She said she expects to be discharged later today. She lives in [place] with her dog. Her sister also has dogs, birds and geckos. Deborah seems to be comfortable here, but is looking forward to going home to see her dog, Sarthak.
[2018-03-18 16:03] VITALS: PULSE 91; RESP 96; TEMP 36.9
== END 2018-03-18 17:40 | disposition home or self-care (01) | DRG 190 ==
LOC: ER 23:26 → ICU 03-13 00:03 → MS 03-18 10:45 → ICU 04-04 14:43
PROVIDERS: Internal Medicine; Admitting Provider Internal Medicine; Emergency Provider Student in an Organized Health Care Education/Training Program; PCP Nurse Practitioner; Visit Provider Family Medicine
DX: J44.0 Chronic obstructive pulmonary disease with (acute) lower respiratory infection (principal); J18.9 Pneumonia, unspecified organism; I51.81 Takotsubo syndrome; J44.1 Chronic obstructive pulmonary disease with (acute) exacerbation; Y95 Nosocomial condition; R13.11 Dysphagia, oral phase; R09.02 Hypoxemia; E11.9 Type 2 diabetes mellitus without complications; M06.9 Rheumatoid arthritis, unspecified; E03.9 Hypothyroidism, unspecified; I25.10 Atherosclerotic heart disease of native coronary artery without angina pectoris; F17.210 Nicotine dependence, cigarettes, uncomplicated; D63.1 Anemia in chronic kidney disease; R19.5 Other fecal abnormalities; Z79.02 Long term (current) use of antithrombotics/antiplatelets; Z79.84 Long term (current) use of oral hypoglycemic drugs; F32.9 Major depressive disorder, single episode, unspecified
CPT/HCPCS: 36415; 71250; 80048; 80053; 86850; 86900; 86901; 87040; 87449; 92610; 93005; 93306; 94640; 96361; 96365; 96375; 99223; 99232; 99233; 99239; 99291; J1650; 71045; 80202; 82607; 82746; 83605; 83880; 84443; 84484; 85014; 85018; 85025; 85379; 87070; 87205; 93010; J1756; J2930; J7512; J7613; J7620

== ENCOUNTER 2018-04-01 14:30 | Outpatient (REF) | payer MEDICARE, MEDICAID, SELFPAY ==
[2018-04-01 21:33] LABS: Abs Immature Grans 0.02 k/cumm (0.0-0.09); Absolute Basophil Count 0.02 k/cumm (0.0-0.2); Absolute Eosinophil Count 0.22 k/cumm (0.0-0.7); Absolute Lymphocyte Count 1.03 k/cumm (1.2-3.4); Absolute Monocyte Count 0.44 k/cumm (0.11-0.7); Absolute Neutrophil Count 2.97 k/cumm (1.2-6.7); Basophils % 0.4; Eosinophils % 4.7; HCT 28.7 % (36.0-46.0); HGB 9.3 g/dL (12.0-15.5); Immature Grans % 0.4; Lymphocytes % 21.9; Mean Corp. HGB Concentration 32.4 g/dL (32.0-36.0); Mean Corpuscular Hemoglobin 30.2 pg (27.0-33.0); Mean Corpuscular Volume 93.2 fL (80-95); Mean Platelet Volume 10.4 fL (8.0-11.0); Monocytes % 9.4; Neutrophils % 63.2; Platelet Count 273 x1000/uL (130-400); RBC 3.08 m/cumm (4.00-5.20); RBC Distribution Width 13.7 % (11.7-14.6)
[2018-04-01 21:49] LABS: Iron 41 ug/dL (50-175); Total Iron Binding Capacity 323 ug/dL (250-450); Transferrin Sat 13 % (15-50)
[2018-04-01 21:59] LABS: BUN 11 mg/dL (7-18); CREATININE 0.86 mg/dL (0.55-1.02); Chloride 101 mmol/L (98-107); Glucose 120 mg/dL (70-100); Potassium 4.3 mmol/L (3.5-5.1); Sodium 138 mmol/L (136-145)
[2018-04-01 22:55] LABS: Ferritin 181 ng/mL (8-388)
== END 2018-04-01 14:50 ==
LOC: NCHCN 14:30
PROVIDERS: PCP Nurse Practitioner; Visit Provider Nurse Practitioner Family
DX: I10 Essential (primary) hypertension (principal); J44.9 Chronic obstructive pulmonary disease, unspecified; D64.9 Anemia, unspecified; F15.90 Other stimulant use, unspecified, uncomplicated
CPT/HCPCS: 80048; 82728; 83540; 83550; 85025

== ENCOUNTER 2018-04-10 01:16 | Outpatient (CLI) | payer MEDICARE, MEDICAID, SELFPAY ==
--- NOTE | 2018-04-10 11:36 | DI.MAMMO_ITS ---
SYMPTOMS/DIAGNOSIS: SCREENING, Z12.31 MAMMOGRAMS: Mammograms were interpreted according to the usual protocol including computer analysis with CAD system, tomosynthesis and C view imaging. Comparison is with the prior examinations. No suspicious masses or microcalcifications are seen. There is no definite evidence of malignancy. IMPRESSION: Negative mammogram. Routine screening is recommended. Category 1, breast density B. MQSA ASSESSMENT OF FINDINGS: Negative. Category 1. Patient will receive a letter notifying them of these results. BI-RADS category B. There are scattered areas of fibroglandular density.
== END 2018-04-10 01:36 ==
PROVIDERS: PCP Nurse Practitioner; Visit Provider Nurse Practitioner
DX: Z12.31 Encounter for screening mammogram for malignant neoplasm of breast (principal)
CPT/HCPCS: 77063; 77067

== ENCOUNTER 2018-04-17 11:16 | Emergency (ER) | payer MEDICARE, MEDICAID, SELFPAY ==
[2018-04-17] VITALS (14 sets, daily range): BP systolic 136–175; BP diastolic 74–80; PULSE 99–115; RESP 20–43; TEMP 37.1; O2SAT 95–97
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
[2018-04-17 11:39] LABS: Abs Immature Grans 0.06 k/cumm (0.0-0.09); Absolute Basophil Count 0.02 k/cumm (0.0-0.2); Absolute Eosinophil Count 0.06 k/cumm (0.0-0.7); Absolute Lymphocyte Count 1.02 k/cumm (1.2-3.4); Absolute Monocyte Count 0.53 k/cumm (0.11-0.7); Absolute Neutrophil Count 4.13 k/cumm (1.2-6.7); Basophils % 0.3; HCT 30.6 % (36.0-46.0); HGB 10.3 g/dL (12.0-15.5); Lymphocytes % 17.5; Mean Corp. HGB Concentration 33.7 g/dL (32.0-36.0); Mean Corpuscular Hemoglobin 29.9 pg (27.0-33.0); Mean Corpuscular Volume 88.7 fL (80-95); Mean Platelet Volume 9.6 fL (8.0-11.0); Monocytes % 9.1; Neutrophils % 71.1; Platelet Count 268 x1000/uL (130-400); RBC 3.45 m/cumm (4.00-5.20); RBC Distribution Width 12.6 % (11.7-14.6); White Blood Cell Count 5.82 k/cumm (4.4-10.8)
[2018-04-17] MEDS: Acetaminophen 500 MG TAB 1000 MG PO (11:45)
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
[2018-04-17 11:51] LABS: PTT Activated 23.4 sec (21.0-31.4); Prothrombin Time 10.2 sec (9.3-11.0)
[2018-04-17 11:56] LABS: ALT 26 U/L (12-78); AST 21 U/L (15-37); Albumin 3.6 g/dL (3.4-5.0); Alkaline Phosphatase 78 U/L (46-116); Anion Gap 9.9 mmol/L (3-11); BUN 13 mg/dL (7-18); Bilirubin, Total 0.4 mg/dL (0.2-1.0); CO2 26.1 mmol/L (21.0-32.0); CREATININE 0.93 mg/dL (0.55-1.02); Calcium 9.4 mg/dL (8.5-10.1); Chloride 100 mmol/L (98-107); Glucose 206 mg/dL (70-100); Potassium 3.9 mmol/L (3.5-5.1); Sodium 136 mmol/L (136-145); Total Protein 7.3 g/dL (6.4-8.2)
[2018-04-17 12:01] LABS: Troponin I < 0.02 ng/mL (0.00-0.06)
== END 2018-04-17 12:40 | disposition home or self-care (01) ==
LOC: ER 12:30
PROVIDERS: Emergency Provider Emergency Medicine; PCP Nurse Practitioner
DX: S20.211A Contusion of right front wall of thorax, initial encounter (principal); V43.12XA Car passenger injured in collision with other type car in nontraffic accident, initial encounter; I10 Essential (primary) hypertension; J44.9 Chronic obstructive pulmonary disease, unspecified; Z87.891 Personal history of nicotine dependence
CPT/HCPCS: 36415; 80053; 93005; 99285; 71046; 84484; 85025; 85610; 85730; 93010

== ENCOUNTER 2018-06-02 09:13 | Emergency (ER) | payer MEDICARE, MEDICAID, SELFPAY ==
[2018-06-02] VITALS (55 sets, daily range): BP systolic 119–180; BP diastolic 56–109; PULSE 75–104; RESP 11–43; TEMP 37; O2SAT 91–97
--- NOTE | 2018-06-02 10:08 | ED.GENADUL_ITS ---
Discharge Plan Disposition Patient Disposition: HOME Condition: Stable Discharge Details Chief Complaint: Chest Pain Clinical Impression: Chest pain Primary Care Provider: Adilene Lester ED Provider: Abby Gillette Home Meds and New Rx's Prescriptions: Continued gabapentin 300 mg capsule 300 mg PO BID RF: 0 fluticasone 50 mcg/actuation spray,suspension 1 spray JAKOB DAILY RF: 0 ferrous gluconate 324 mg (36 mg iron) tablet 324 mg PO DAILY RF: 0 blood-glucose meter [FreeStyle Lite Meter] kit .ROUTE .MEDSUPPLY Qty: 1 RF: 0 amlodipine 10 mg tablet 10 mg PO DAILY RF: 0 aspirin 81 mg tablet,chewable 81 mg PO DAILY RF: 0 duloxetine 60 mg capsule,delayed release(DR/EC) 60 mg PO DAILY RF: 0 budesonide-formoterol [Symbicort] 160-4.5 mcg/actuation HFA aerosol inhaler 2 puff IH BID RF: 0 metformin 500 mg tablet 500 mg PO DAILY RF: 0 nitroglycerin [Nitrostat] 0.4 mg tablet, sublingual 0.4 mg SL ONCE RF: 0 multivitamin tablet 1 tab PO DAILY RF: 0 loratadine 10 mg tablet,disintegrating 10 mg PO DAILY RF: 0 meclizine 12.5 mg tablet 12.5 mg PO TID PRNRF: 0 calcium carbonate-vitamin D3 [Calcium 600 with Vitamin D3] 600 mg(1,500mg) - 200 unit tablet 1 tab PO DAILY RF: 0 montelukast [Singulair] 10 mg tablet 10 mg PO QPM RF: 0 lisinopril 5 mg tablet 5 mg PO DAILY RF: 0 gabapentin 600 MG tablet 600 mg PO .QHS RF: 0 sumatriptan succinate 100 MG tablet 100 mg PO PRN PRNRF: 0 hydroxychloroquine 200 MG tablet 400 mg PO DAILY RF: 0 levothyroxine 100 MCG recon soln 112 mcg PO DAILY RF: 0 trazodone 100 MG tablet 100 mg PO .QHS RF: 0 Ventolin HFA 8 GM HFA aerosol inhaler 2 puff Inhalation .Q4HR PRNRF: 0 ipratropium-albuterol 0.5 mg-3 mg(2.5 mg base)/3 mL Solution For Nebulization 3 ml UPD Q6H Qty: 100 RF: 0 guaifenesin [Mucinex] 600 mg tablet extended release 12hr 600 mg PO Q12H Qty: 10 RF: 0 levofloxacin 500 mg tablet 500 mg PO DAILY Qty: 5 RF: 0 prednisone 20 mg tablet See Rx Instructions .ROUTE .COMPLEX Qty: 12 RF: 0 benzonatate [Tessalon Perles] 100 mg capsule 100 mg PO TID PRN (Reason: cough) Qty: 30 RF: 0 gabapentin [Neurontin] 600 mg Tablet 600 mg PO HS Qty: 0 RF: 0 ipratropium-albuterol 0.5 mg-3 mg(2.5 mg base)/3 mL Solution For Nebulization 3 ml UPD Q4H PRN PRNQty: 0 RF: 0 levothyroxine 100 mcg Tablet 100 mcg PO DAILY@0600 Qty: 0 RF: 0 gabapentin 300 mg Capsule 300 mg PO BID Qty: 0 RF: 0 hydroxychloroquine 200 mg Tablet 400 mg PO DAILY Qty: 0 RF: 0 melatonin 3 mg Tablet Extended Release 3 mg PO HS Qty: 0 RF: 0 sucralfate 1 gram Tablet 1 g PO AC & HS Qty: 120 RF: 0 trazodone 100 mg Tablet 100 mg PO HS Qty: 0 RF: 0 ropinirole 0.5 mg Tablet 0.25 mg PO HS Qty: 0 RF: 0 fluticasone 50 mcg/actuation Deane,Suspension NS DAILY Qty: 0 RF: 0 Spiriva with HandiHaler 18 mcg Capsule, W/Inhalation Device 1 cap Inhalation DAILY Qty: 0 RF: 2 Chantix Starting Month Box 0.5 mg (11)- 1 mg (42) tablets,dose pack 1 dose pk PO DAILY Qty: 1 RF: 0 pantoprazole 40 mg tablet,delayed release (DR/EC) 40 mg PO BID Qty: 60 RF: 1 Spiriva with HandiHaler 18 MCG capsule, w/inhalation device 18 mcg Inhalation DAILY RF: 0 ropinirole 0.5 MG tablet 0.25 mg PO DIRECTED RF: 0 Discharge Instructions Instructions: Chest Pain (ED) Additional Instructions: Please return immediately to the emergency department if you develop any new or worsening symptoms or if you become otherwise concerned. It is extremely important that you attend your scheduled appointment with cardiology on 06/04/18, that you make an appointment to be seen by your primary care doctor soon as possible, and also that you have your stress test performed as we discussed. Referrals: Jermaine Rocha MD [MD CONSULTING PHYSICIAN] - Adilene Lester [Primary Care Provider] - Discharge Data Discharge Date/Time-TO BE ENTERED AT DEPARTURE: 06/02/18 15:28 Medical Decision Making Deborah Ybarra is a 67 y/o woman with history of hypertension, diabetes, COPD coronary artery disease, hypothyroidism, rheumatoid arthritis, cardiomyopathy, thought that it is presenting to the emergency department on exam patient is very well and nontoxic appearing. She appears comfortable. Concern for ACS versus PE versus GERD versus other. Exam/history is not with acute aortic pathology, sepsis. Plan for EKG, chest x-ray, screening labs, aspirin, nitroglycerin, telemetry. Will monitor and reassess. Patient reports full resolution of pain after nitroglycerin x2. We will continue to monitor. EKG nondiagnostic. First troponin negative. Will plan for repeat troponin and EKG. Patient remains pain-free. Repeat testing negative. Patient continues to be pain-free, requesting discharge home. Patient with multiple risk factors for cardiac chest pain, however features of this episode atypical for cardiac etiology. I discussed the patient with cardiology on-call, who recommended outpatient stress testing and follow-up at the patient's scheduled cardiology appointment 06/04. I discussed this plan with the patient, who is amenable to discharge and would rather not be admitted at this time. Had a lengthy discussion with patient regarding return to emergency department precautions and importance of outpatient follow-up with her primary care doctor and with cardiology. She verbalizes understanding of the plan and is amenable. Outpatient nuclear stress testing ordered. Medical Records Medical records reviewed: Yes I reviewed the patient's medical records. Imaging Data Radiologic Study: Attestation: I personally reviewed and interpreted this imaging study as follows: Radiologist's impression: PORTABLE CHEST: Comparison is made with 17 Apr 2018. The heart size is normal. The lungs are suboptimally inflated but appear clear. No infiltrate or effusion is seen. IMPRESSION: Negative portable chest. Lab Data Lab results reviewed: Yes I reviewed the patient's lab results. ECG Data Attestation: I personally reviewed and interpreted this ECG (s) as follows: Interpretation: EKG shows sinus rhythm 89, normal axis, no acute ischemic changes, nondiagnostic EKG EKG #2 shows sinus rhythm 77 with occasional PAC, normal axis, no acute ischemic changes, nondiagnostic EKG HPI General Mode of arrival: ambulatory . Date/Time Provider Initiated Documentation: 06/02/18 09:36 . Limitations to Documentation: no limitations . Information obtained by: patient, RN notes reviewed and old records reviewed . HPI Narrative: Deborah Ybarra is a 67-year-old woman with history of proptosis tachycardia tubal cardiomyopathy, rheumatoid arthritis, hypothyroidism, coronary artery disease, COPD, hypertension, diabetes presenting to the emergency department. Patient reports that she woke up at 230 this morning with burning/sharp chest patient reports that she took Tums, but this did not seem to change her pain she reports that pain persisted into this morning. Patient reports that pain has improved somewhat, but is still present 3-4 out of 10. Patient reports the pain is nonexertional, nonpleuritic, non-positional. Nothing seems to improve or worsen patient reports that pain does not feel simil ar to when she has had heart issues in the past. Unchanged with eating or drinking. Patient reports that she took 181 mg aspirin as usual this morning. Patient reports that she has been well in her usual state of health until normal. No recent illnesses. Has been eating and drinking no fever, cough, shortness of breath, nausea/vomiting/diarrhea, weakness, numbness/tingling, swelling. Related Data Home Medications Medication Instructions Recorded Confirmed Ventolin HFA 2 puff INHALATION .Q4HR PRN 02/06/15 06/02/18 gabapentin 600 mg PO .QHS 02/06/15 06/02/18 hydroxychloroquine 400 mg PO DAILY 02/06/15 06/02/18 levothyroxine 112 mcg PO DAILY 02/06/15 06/02/18 sumatriptan succinate 100 mg PO PRN PRN 02/06/15 06/02/18 trazodone 100 mg PO .QHS 02/06/15 06/02/18 Spiriva with HandiHaler 18 mcg INHALATION DAILY 12/11/17 06/02/18 ropinirole 0.25 mg PO DIRECTED 12/11/17 06/02/18 amlodipine 10 mg tablet 10 mg PO DAILY 02/13/18 06/02/18 aspirin 81 mg chewable tablet 81 mg PO DAILY 02/13/18 06/02/18 blood-glucose meter kit #1 each 02/13/18 budesonide-formoterol HFA 160 2 puff IH BID 02/13/18 06/02/18 mcg-4.5 mcg/actuation aerosol inhaler calcium carbonate 600 mg (1,500 1 tab PO DAILY 02/13/18 06/02/18 mg)-vitamin D3 200 unit tablet duloxetine 60 mg capsule,delayed 60 mg PO DAILY 02/13/18 06/02/18 release ferrous gluconate 324 mg (36 mg 324 mg PO DAILY tab 02/13/18 06/02/18 iron) tablet fluticasone 50 mcg/actuation nasal 1 spray JAKOB DAILY 02/13/18 06/02/18 spray,suspension gabapentin 300 mg capsule 300 mg PO BID 02/13/18 06/02/18 lisinopril 5 mg tablet 5 mg PO DAILY 02/13/18 06/02/18 loratadine 10 mg disintegrating 10 mg PO DAILY 02/13/18 06/02/18 tablet meclizine 12.5 mg tablet 12.5 mg PO TID PRN 02/13/18 06/02/18 metformin 500 mg tablet 500 mg PO DAILY tab 02/13/18 06/02/18 montelukast 10 mg tablet 10 mg PO QPM 02/13/18 06/02/18 multivitamin tablet 1 tab PO DAILY 02/13/18 06/02/18 nitroglycerin 0.4 mg sublingual 0.4 mg SL ONCE 02/13/18 06/02/18 tablet benzonatate [Tessalon Perles] 100 mg PO TID PRN #30 cap 03/07/18 06/02/18 guaifenesin [Mucinex] 600 mg PO Q12H #10 tab 03/07/18 06/02/18 ipratropium-albuterol 3 ml UPD Q6H #100 vial 03/07/18 06/02/18 levofloxacin 500 mg PO DAILY #5 tab 03/07/18 06/02/18 prednisone See Rx Instructions .ROUTE 03/07/18 06/02/18 .COMPLEX #12 tab Chantix Starting Month Box 1 dose pk PO DAILY #1 dose pk 03/18/18 06/02/18 Spiriva with HandiHaler 1 cap INHALATION DAILY #0 inh 03/18/18 06/02/18 fluticasone 0 g NS DAILY #0 g 03/18/18 06/02/18 gabapentin 300 mg PO BID #0 cap 03/18/18 06/02/18 gabapentin [Neurontin] 600 mg PO HS #0 tab 03/18/18 04/17/18 hydroxychloroquine 400 mg PO DAILY #0 tab 03/18/18 06/02/18 ipratropium-albuterol 3 ml UPD Q4H PRN PRN #0 ml 03/18/18 06/02/18 levothyroxine 100 mcg PO DAILY@0600 #0 tab 03/18/18 06/02/18 melatonin 3 mg PO HS #0 tab 03/18/18 06/02/18 pantoprazole 40 mg PO BID #60 tab 03/18/18 06/02/18 ropinirole 0.25 mg PO HS #0 tab 03/18/18 06/02/18 sucralfate 1 g PO AC & HS #120 tab 03/18/18 06/02/18 trazodone 100 mg PO HS #0 tab 03/18/18 06/02/18 Previous Rx's Medication Instructions Recorded benzonatate [Tessalon Perles] 100 mg PO TID PRN #30 cap 03/07/18 guaifenesin [Mucinex] 600 mg PO Q12H #10 tab 03/07/18 ipratropium-albuterol 3 ml UPD Q6H #100 vial 03/07/18 levofloxacin 500 mg PO DAILY #5 tab 03/07/18 prednisone See Rx Instructions .ROUTE 03/07/18 .COMPLEX #12 tab Chantix Starting Month Box 1 dose pk PO DAILY #1 dose pk 03/18/18 Spiriva with HandiHaler 1 cap INHALATION DAILY #0 inh 03/18/18 fluticasone 0 g NS DAILY #0 g 03/18/18 gabapentin 300 mg PO BID #0 cap 03/18/18 gabapentin [Neurontin] 600 mg PO HS #0 tab 03/18/18 hydroxychloroquine 400 mg PO DAILY #0 tab 03/18/18 ipratropium-albuterol 3 ml UPD Q4H PRN PRN #0 ml 03/18/18 levothyroxine 100 mcg PO DAILY@0600 #0 tab 03/18/18 melatonin 3 mg PO HS #0 tab 03/18/18 pantoprazole 40 mg PO BID #60 tab 03/18/18 ropinirole 0.25 mg PO HS #0 tab 03/18/18 sucralfate 1 g PO AC & HS #120 tab 03/18/18 trazodone 100 mg PO HS #0 tab 03/18/18 Allergies Allergy/AdvReac Type Severity Reaction Status Date / Time ampicillin AdvReac Mild stuffy/feve Unverified 06/02/18 09:50 r clindamycin AdvReac Mild stuffy/feve Unverified 06/02/18 09:50 r Penicillins AdvReac Mild stuffy/feve Unverified 06/02/18 09:50 r Sulfa (Sulfonamide AdvReac Mild stuffy/feve Unverified 06/02/18 09:50 Antibiotics) r tramadol AdvReac Mild stuffy/feve Unverified 06/02/18 09:[address] contrast Allergy Unknown pt not Uncoded 06/02/18 09:50 sure of allergy General Stated Complaint: Chest Pain ANASTACIA: 2 Review of Systems Review of Systems Constitutional: denies fevers Eyes: denies eye pain ENT: denies facial pain, dental pain, sore throat Cardiovascular: denies edema, reports chest pain Respiratory: denies SOB, cough GI: denies abdominal pain, vomiting, diarrhea : denies flank pain MSK: denies back pain, neck pain, arthralgias, myalgias Skin: denies rash Neuro: denies headaches, numbness, weakness PFSH Medical History Sarcoidosis (Chronic) Takotsubo cardiomyopathy (Chronic) Depression (Chronic) Rheumatoid arthritis (Chronic) Hypothyroidism (acquired) (Chronic) Anemia (Chronic) Coronary artery disease (Chronic) COPD (chronic obstructive pulmonary disease) (Chronic) Hypertension (Chronic) Diabetes (Chronic) Myocardial infarct (Chronic) Surgical History H/O tubal ligation (Resolved) History of cholecystectomy (Resolved) History of total knee arthroplasty (Resolved) Hx of cardiac cath (Resolved) S/P appendectomy (Resolved) Social History household members: family housing: other details: lives w/ her sister in [place], [place] number of children: 2 Smoking and Tabacco status: Former Tobacco Use alcohol intake: current alcohol intake frequency: holidays/special occasions only Alcohol type: wine substance use type: does not use History History 2 Para 2 Hx # Term Pregnancies 2 Multiple births Hx # Pregnancies Ectopic pregnancies AB induced Hx Number of Living Children 2 AB spontaneous Exam Narrative Exam Narrative: Constitutional: well and [id number], pleasant, conversing normally HENT: head atraumatic/normocephalic/normal inspection, mucous membranes moist Eyes: conjunctiva normal, sclera normal, pupils 3mm b/l Neck: no stridor, normal ROM, trachea midline Chest: normal inspection Resp: normal work of breathing, LCTAB Cardio: normal rate, normal rhythm GI: abdomen soft, non-tender, non-distended Back: normal inspection, no rash Skin: warm, dry, normal color, no rash Neuro: alert, not altered, grossly non-focal, normal tone Ext: no edema, no posterior calf tenderness to palpation Psych: normal mood, normal affect, normal behavior Course Vital Signs Temperature 37 C 06/02/18 09:47 Pulse 82 06/02/18 09:47 Respiratory Rate 16 06/02/18 09:47 Blood Pressure 176/89 H 06/02/18 09:47 Pulse Oximetry 94 L 06/02/18 09:47 Temperature 37 C 06/02/18 09:47 Temperature Source Skin 06/02/18 09:47 Pulse 82 06/02/18 09:47 Respiratory Rate 16 06/02/18 09:47 Respiratory Effort Non-Labored 06/02/18 09:47 Blood Pressure 176/89 H 06/02/18 09:47 Blood Pressure Position Supine 06/02/18 09:47 Pulse Oximetry 94 L 06/02/18 09:47 Oxygen Delivery Method Room Air 06/02/18 09:47 Oxygen Flow Rate 0 06/02/18 09:47 Pain Level 9 06/02/18 09:47
--- NOTE | 2018-06-02 10:12 | DI.RAD_ITS ---
SYMPTOM/DIAGNOSIS: CHEST PAIN PORTABLE CHEST: Comparison is made with 17 Apr 2018. The heart size is normal. The lungs are suboptimally inflated but appear clear. No infiltrate or effusion is seen. IMPRESSION: Negative portable chest.
[2018-06-02 10:28] LABS: Abs Immature Grans 0.01 k/cumm (0.0-0.09); Absolute Basophil Count 0.02 k/cumm (0.0-0.2); Absolute Eosinophil Count 0.15 k/cumm (0.0-0.7); Absolute Lymphocyte Count 1.17 k/cumm (1.2-3.4); Absolute Monocyte Count 0.44 k/cumm (0.11-0.7); Absolute Neutrophil Count 2.85 k/cumm (1.2-6.7); Basophils % 0.4; Eosinophils % 3.2; HCT 32.8 % (36.0-46.0); HGB 11.5 g/dL (12.0-15.5); Immature Grans % 0.2; Lymphocytes % 25.2; Mean Corp. HGB Concentration 35.1 g/dL (32.0-36.0); Mean Corpuscular Hemoglobin 30.2 pg (27.0-33.0); Mean Corpuscular Volume 86.1 fL (80-95); Mean Platelet Volume 10.4 fL (8.0-11.0); Monocytes % 9.5; Neutrophils % 61.5; Platelet Count 274 x1000/uL (130-400); RBC 3.81 m/cumm (4.00-5.20); RBC Distribution Width 12.6 % (11.7-14.6); White Blood Cell Count 4.64 k/cumm (4.4-10.8)
[2018-06-02] MEDS: Normal Saline 250 ML IV (10:45)
[2018-06-02 10:48] LABS: ALT 28 U/L (12-78); AST 30 U/L (15-37); Albumin 4.1 g/dL (3.4-5.0); Alkaline Phosphatase 72 U/L (46-116); Anion Gap 9.1 mmol/L (3-11); BUN 19 mg/dL (7-18); Bilirubin, Total 0.3 mg/dL (0.2-1.0); CO2 27.9 mmol/L (21.0-32.0); CREATININE 1.19 mg/dL (0.55-1.02); Chloride 99 mmol/L (98-107); Estimated GFR 45.24 (mL/min/1.73m2); Glucose 163 mg/dL (70-100); Lipase 126 U/L (73-393); Potassium 4.3 mmol/L (3.5-5.1); Sodium 136 mmol/L (136-145); Total Protein 7.8 g/dL (6.4-8.2)
[2018-06-02] MEDS: Aspirin 81 MG CHEW 243 MG CH (10:48)
[2018-06-02 10:56] LABS: Calcium 10.1 mg/dL (8.5-10.1); Troponin I < 0.02 ng/mL (0.00-0.06)
[2018-06-02 11:42] LABS: D-Dimer 356 ng/mlFEU (<500)
[2018-06-02 13:58] LABS: Troponin I < 0.02 ng/mL (0.00-0.06)
--- NOTE | 2018-06-03 08:08 | PDOC.ERCMPRO ---
Care Management Progress Note 06/03-Cristo Gillette ordered stress test. Order sent to diagnostic imaging. Called DI this morning and spoke with Jet. Jet stated that Deborah was scheduled for tomorrow.
== END 2018-06-02 15:28 | disposition home or self-care (01) ==
PROVIDERS: Emergency Provider Student in an Organized Health Care Education/Training Program; PCP Nurse Practitioner
DX: R07.9 Chest pain, unspecified (principal); E11.9 Type 2 diabetes mellitus without complications; Z79.84 Long term (current) use of oral hypoglycemic drugs; I10 Essential (primary) hypertension; J44.9 Chronic obstructive pulmonary disease, unspecified; Z87.891 Personal history of nicotine dependence
CPT/HCPCS: 36415; 80053; 83690; 93005; 96360; 99285; 71045; 84484; 85025; 85379; 93010

== ENCOUNTER 2018-06-04 00:46 | Outpatient (CLI) | payer MEDICARE, MEDICAID, SELFPAY ==
--- NOTE | 2018-06-04 11:00 | MERGEMPI_ITS ---
*[facility]* *[facility]* [address] [place] [address] Myocardial Perfusion Imaging - SPECT Regadenoson Date of study: 06/04/2018 *PATIENT PRESENTATION* Height: 165.1cm (65in) Blood Pressure: Weight: 90.5kg (199lb) BSA: 2.07m^2 Referring physician: Jermaine Rocha Ordering physician: Abby Gillette Impressions: - Study suggests small myocardial infarction, in the territory of the left anterior descending coronary artery. - No evidence for myocardial ischemia. Summary: 1. Myocardial perfusion imaging: There is a small sized, severely intense, fixed defect involving the apical wall(s). This suggests small myocardial infarction in the distribution of the left anterior descending coronary artery. 2. The calculated left ventricular ejection fraction after stress: 46%. LV global systolic function is mildly reduced. Diffuse left ventricular regional motion abnormalities. 3. Stress ECG conclusions: The stress ECG is negative. Indication: R07.9, Appropriate Use Criteria: A (Appropriate). History: REASON FOR TESTING: ON 06/02/18 PRESENTED TO ED WITH SHARP AND ACHING LEFT SIDED CHEST PAIN (9/10). PAIN RELEIVED WITH 3 NITRO PILLS IN ED THEN SENT HOME. PATIENT DENIES CHEST PAIN/PRESSURE UPON ARRIVAL TO [facility] STRESS TEST TODAY. SIGNIFICANT PAST MEDICAL HISTORY: TAKOTSUBO CARDIOMYOPATHY, CAD, COPD, MYOCARDIAL INFARCT, CARDIAC CATH. SMOKING STATUS: QUIT FEBRUARY 2018. SMOKED FOR 27 YEARS 1 TO 3 PPD. EXERCISE ROUTINE: LIMITED ADL'S DUE TO VERTIGO AND AMBULATES WITH CANE. PMH: COPD. Asthma. Risk factors: Hypertension. Diabetes mellitus. Dyslipidemia. Peripheral vascular disease. ALLERGIES: AMPICILLIN, CLINDAMYCIN, PENICILLIN, SULFA, TRAMADOL, CT CONTRAST. MEDICATIONS: VENTOLIN HFA 2 PUFFS PRN, GABAPENTIN 300 MG BID AND 600 MG HS DAILY, HYDROXYCHLOROQUINE 400 MG DAILY, LEVOTHYROXINE 112 MCG DAILY, SUMATRIPTAN SUCCINATE 100 MG PRN, TRAZODONE 100 HS, SPIRIVA 18 ONE PUFF DAILY, AMLODIPINE 10 MG DAILY, ASPIRIN 81 MG DAILY, BUDESONIDE/FORMOTEROL HFA 2 PUFFS BID, CALCIUM CARBONATE/VITAMIN D 600/200 DAILY, DULOXETINE 60 MG DAILY, FERROUS GLUCONATE 324 DAILY, FLUTICASONE NASAL SPRAY DAILY, LISINOPRIL 5 MG DAILY, LORATADINE 10 MG DAILY, MECLIZINE 12.5 MG DAILY, METFORMIN 500 MG DAILY, MONTELUKAST 10 MG HS, MULTIVITAMIN DAILY, NITROGLYCEDRINE 0.4 MG PRN, IPRATROPIUM/ALBUTEROL UPD PRN, MUCINEX 600 MG BID, MELATONIN 3 MG HS, PANTOPRAZOLE 40 MG BID, ROPINIROLE 0.25 MG HS, SULCRAFATE 1 G AC & HS Imaging Technique: Protocol: Regadenoson. Acquisition: Gated SPECT; 1 day - rest/stress. The patient was imaged in the supine position. Attenuation correction used. Isotope administration: - Rest. Tc[99m]-sestamibi. Dose: 10.6mCi. Injection time: 10:55 AM. Injection to stress time: 00:45. - Stress. Tc[99m]-sestamibi. Dose: 28.1mCi. Injection time: 02:35 PM. 1-2 min before end of exercise Baseline ECG: SINUS RHYTHM. HR 67. Stress protocol: +--------+--+ + + !Stage !HR!BP (mmHg) !Comments ! +--------+--+ + + !Baseline!67!150/80 (103)! ! +--------+--+ + + !1 min !89!150/80 (103)!Inject Regadenoson.! +--------+--+ + + !3 min !85!160/80 (107)! ! +--------+--+ + + !6 min !79!168/80 (109)! ! +--------+--+ + + * Stress results: The rate-pressure product for the peak heart rate and blood pressure was 98389is Hg/min. Stress ECG: STRESS TEST ENDED IN 7 MINUTES 0 SECONDS TO LEXISCAN INJECTION. NORMAL HEART RATE AND BLOOD PRESSURE RESPONSE TO LEXISCAN INJECTION. 1 PVC AT 4 MINUTES 2 SECONDS. NO ANGINA NO SIGNIFICANT ST SEGMENT CHANGES. The stress ECG is negative. Myocardial perfusion: Imaging information: gated. Image quality reduced due to breast attenuation and subdiaphragmatic activity. Left ventricular size is normal. Right ventricular size is normal. There is a small sized, severely intense, fixed defect involving the apical wall(s). This suggests small myocardial infarction in the distribution of the left anterior descending coronary artery. Ventricular Function (Wall Motion): The calculated left ventricular ejection fraction after stress: 46%. LV global systolic function is mildly reduced. Diffuse left ventricular regional motion abnormalities. Right ventricular function is normal. Study data: Jermaine Rocha MD supervised and was readily available during the procedure. This study was interpreted by [facility]. Study status: Routine. Consent: The risks, benefits, and alternatives to the procedure were explained to the patient and informed consent was obtained. Procedure: Initial setup. A baseline ECG was recorded. Surface ECG leads and manual cuff blood pressure measurements were monitored. Heart sounds: Normal. Lung sounds: Normal. Regadenoson stress test. Stress testing was performed, with regadenoson by intravenous bolus, for a total dose of 0.4mgover 10.00sec, followed by a 5ml saline flush. The infusion was terminated due to per protocol. Study completion: All catheters inserted during the procedure were removed. The patient tolerated the procedure well and was discharged from the lab. Discharge: The patient left the laboratory in stable condition. Birthdate: Patient birthdate: 1950. Sex: Gender: female. Study date: Study date: 06/04/2018. Study time: 00:01 AM. Signature Documentation: - The imaging portion of this study was interpreted by Nuclear Business Support Specialist Jermaine Rocha MD. - The imaging portion of this study was interpreted by Nuclear Radiologist Missy Newton MD. - The Stress ECG portion of this study was interpreted by Jermaine Rocha MD. Electronically signed by Jermaine Rocha 06/04/2018 15:35
[2018-06-04] MEDS: Regadenoson 0.4 MG/5 ML SYR IVP (15:08)
== END 2018-06-04 01:06 ==
PROVIDERS: PCP Nurse Practitioner; Visit Provider Student in an Organized Health Care Education/Training Program
DX: R07.9 Chest pain, unspecified (principal); I25.10 Atherosclerotic heart disease of native coronary artery without angina pectoris; I51.81 Takotsubo syndrome; J44.9 Chronic obstructive pulmonary disease, unspecified; I25.2 Old myocardial infarction; I10 Essential (primary) hypertension; E11.9 Type 2 diabetes mellitus without complications; E78.5 Hyperlipidemia, unspecified; Z87.891 Personal history of nicotine dependence
CPT/HCPCS: 78452; 93016; 93018; 93017; J2785

== ENCOUNTER → 2018-06-19 09:57 | Outpatient (BNVA) | payer MEDICARE, MEDICAID, SELFPAY | PROVIDERS: PCP Nurse Practitioner; Visit Provider Psychiatry & Neurology Neurology | DX: R55 Syncope and collapse (principal); R42 Dizziness and giddiness; I12.9 Hypertensive chronic kidney disease with stage 1 through stage 4 chronic kidney disease, or unspecified chronic kidney disease; E11.22 Type 2 diabetes mellitus with diabetic chronic kidney disease; N18.9 Chronic kidney disease, unspecified; J44.9 Chronic obstructive pulmonary disease, unspecified; Z87.891 Personal history of nicotine dependence | CPT/HCPCS: 99205; 99215 ==

== ENCOUNTER 2018-07-15 14:13 | Outpatient (REF) | payer MEDICARE, MEDICAID, SELFPAY ==
[2018-07-15 22:05] LABS: Abs Immature Grans 0.01 k/cumm (0.0-0.09); Absolute Basophil Count 0.03 k/cumm (0.0-0.2); Absolute Lymphocyte Count 1.25 k/cumm (1.2-3.4); Absolute Neutrophil Count 2.71 k/cumm (1.2-6.7); Basophils % 0.6; Eosinophils % 4.3; HCT 31.8 % (36.0-46.0); HGB 10.8 g/dL (12.0-15.5); Immature Grans % 0.2; Lymphocytes % 26.6; Mean Corpuscular Hemoglobin 29.3 pg (27.0-33.0); Mean Corpuscular Volume 86.4 fL (80-95); Mean Platelet Volume 10.9 fL (8.0-11.0); Monocytes % 10.6; Neutrophils % 57.7; Platelet Count 253 x1000/uL (130-400); RBC 3.68 m/cumm (4.00-5.20); RBC Distribution Width 12.5 % (11.7-14.6)
[2018-07-15 22:14] LABS: Iron 56 ug/dL (50-175); Total Iron Binding Capacity 340 ug/dL (250-450); Transferrin Sat 16 % (15-50)
== END 2018-07-15 14:33 ==
LOC: NCHCN 14:13
PROVIDERS: PCP Nurse Practitioner; Visit Provider Nurse Practitioner Family
DX: D64.9 Anemia, unspecified (principal)
CPT/HCPCS: 83540; 83550; 85025

== ENCOUNTER 2018-08-12 13:01 | Outpatient (REF) | payer MEDICARE, MEDICAID, SELFPAY ==
[2018-08-12 21:44] LABS: Abs Immature Grans 0.03 k/cumm (0.0-0.09); Absolute Basophil Count 0.06 k/cumm (0.0-0.2); Absolute Eosinophil Count 0.23 k/cumm (0.0-0.7); Absolute Monocyte Count 0.49 k/cumm (0.11-0.7); Absolute Neutrophil Count 2.77 k/cumm (1.2-6.7); Basophils % 1.1; Eosinophils % 4.4; HCT 34.1 % (36.0-46.0); HGB 11.5 g/dL (12.0-15.5); Immature Grans % 0.6; Lymphocytes % 32.2; Mean Corp. HGB Concentration 33.7 g/dL (32.0-36.0); Mean Corpuscular Hemoglobin 29.2 pg (27.0-33.0); Mean Corpuscular Volume 86.5 fL (80-95); Mean Platelet Volume 11.1 fL (8.0-11.0); Monocytes % 9.3; Neutrophils % 52.4; Platelet Count 269 x1000/uL (130-400); RBC 3.94 m/cumm (4.00-5.20); RBC Distribution Width 12.4 % (11.7-14.6); White Blood Cell Count 5.28 k/cumm (4.4-10.8)
[2018-08-12 21:49] LABS: Iron 69 ug/dL (50-175)
== END 2018-08-12 13:21 ==
LOC: NCHCN 13:01
PROVIDERS: PCP Nurse Practitioner; Visit Provider Nurse Practitioner Family
DX: R13.10 Dysphagia, unspecified (principal); M85.80 Other specified disorders of bone density and structure, unspecified site; N18.9 Chronic kidney disease, unspecified; E11.9 Type 2 diabetes mellitus without complications; E78.5 Hyperlipidemia, unspecified; I10 Essential (primary) hypertension; E66.01 Morbid (severe) obesity due to excess calories
CPT/HCPCS: 83540; 85025

== ENCOUNTER 2018-09-09 15:59 | Outpatient (CLI) | payer MEDICARE, MEDICAID, SELFPAY ==
[2018-09-09 17:19] LABS: ALT 33 U/L (12-78); AST 21 U/L (15-37); Albumin 3.9 g/dL (3.4-5.0); Alkaline Phosphatase 66 U/L (46-116); Anion Gap 10.3 mmol/L (3-11); BUN 18 mg/dL (7-18); Bilirubin, Total 0.2 mg/dL (0.2-1.0); C-Reactive Protein 0.52 mg/dL (0.0-0.3); CO2 26.7 mmol/L (21.0-32.0); CREATININE 1.05 mg/dL (0.55-1.02); Calcium 9.3 mg/dL (8.5-10.1); Chloride 99 mmol/L (98-107); Estimated GFR 52.28 (mL/min/1.73m2); Glucose 150 mg/dL (70-100); Potassium 4.6 mmol/L (3.5-5.1); Sodium 136 mmol/L (136-145)
[2018-09-09 17:25] LABS: HCT 31.4 % (36.0-46.0); HGB 10.7 g/dL (12.0-15.5); Mean Corp. HGB Concentration 34.1 g/dL (32.0-36.0); Mean Corpuscular Hemoglobin 30.1 pg (27.0-33.0); Mean Corpuscular Volume 88.2 fL (80-95); Mean Platelet Volume 10.5 fL (8.0-11.0); Platelet Count 290 x1000/uL (130-400); RBC 3.56 m/cumm (4.00-5.20); RBC Distribution Width 12.5 % (11.7-14.6); White Blood Cell Count 6.37 k/cumm (4.4-10.8)
[2018-09-09 18:36] LABS: ESR 51 MM/HR (0-30)
[2018-09-11 14:42] LABS: Angiotensin Converting Enzyme <5 U/L (16 - 85)
[2018-09-12 11:48] LABS: Lysozyme (Muramidase), P 5.4 mcg/mL (2.7 - 9.4)
== END 2018-09-09 16:19 ==
PROVIDERS: PCP Nurse Practitioner; Visit Provider Internal Medicine Rheumatology
DX: D86.0 Sarcoidosis of lung (principal); Z79.899 Other long term (current) drug therapy
CPT/HCPCS: 36415; 80053; 82164; 85027; 85549; 85652; 86140

== ENCOUNTER → 2018-09-16 12:34 | Outpatient (BNVA) | payer MEDICARE, MEDICAID, SELFPAY | PROVIDERS: PCP Nurse Practitioner; Visit Provider Psychiatry & Neurology Neurology | DX: G56.02 Carpal tunnel syndrome, left upper limb (principal) | CPT/HCPCS: 95908; 99213 ==